=== PATIENT | female | born 1935 | race Caucasian/White ===

== ENCOUNTER 2016-04-23 05:47 | Inpatient (IN) | payer MEDICARE ==
[~2016-04-23 05:47] MED LIST: Buffered Lidocaine 1% SYR 3ML* 3 ML/SYR SYRINGE INTRADERM ONE; NS 0.9% 1000 ML* 1,000 ML IV SCH
[2016-04-23] MEDS ORDERED: oxyCODONE/Acetamin 5/325 MG* TAB PO PRN ×3 (05:53→11:10)
[2016-04-23] MEDS ORDERED: Morphine INJ* 2 MG/ML 1 ML CARPUJECT IV PRN (05:53)
[2016-04-23] MEDS ORDERED: PROCHLORPERAZINE INJ 5 MG/ML 2 ML VIAL IV PRN (05:53)
[2016-04-23] MEDS ORDERED: Famotidine IV* 10 MG/ML 2 ML (20 mg) IV ONE (06:00)
[2016-04-23] MEDS ORDERED: Buffered Lidocaine 1% SYR 3ML* 3 ML/SYR SYRINGE INTRADERM ONE (06:00)
[2016-04-23] MEDS ORDERED: Buffered Lidocaine 1% SYR 3ML* 3 ML/SYR SYRINGE ONE (06:18)
[2016-04-23] MEDS ORDERED: ceFAZolin 2 GM PREMIX (*) 2 GM/50 ML BAG IVPB ONE (06:18)
[2016-04-23] MEDS ORDERED: Famotidine IV* 10 MG/ML 2 ML (20 mg) ONE (06:18)
[2016-04-23] MEDS ORDERED: Atracurium* 10 MG/ML 10 ML VIAL ONE (07:12)
[2016-04-23] MEDS ORDERED: Midazolam* 1 MG/ML 2 ML VIAL (2 MG) ONE (07:12)
[2016-04-23] MEDS ORDERED: KETAMINE HCL* 50 MG/ML 10 ML VIAL ONE (07:12)
[2016-04-23] MEDS ORDERED: fentaNYL* 50 MCG/ML 2 ML VIAL (100 MCG VIAL) ONE ×2 (07:12→09:10)
[2016-04-23] MEDS ORDERED: Bacitracin IV* 50,000 UNITS INJ ONE (07:13)
[2016-04-23] MEDS ORDERED: Thrombin 5,000 UNITS* 1 APPLIC KIT - topical use - TOPICAL ONE (07:13)
[2016-04-23] MEDS ORDERED: Lidocain 1% EPI 1:100,000 * 30 ML MDV ONE (07:13)
[2016-04-23] MEDS ORDERED: Neostigmine Methylsulfate* 2 MG/2 ML SYRINGE ONE (08:08)
[2016-04-23] MEDS ORDERED: Ondansetron INJ* 2 MG/ML VIAL ONE (08:08)
[2016-04-23] MEDS ORDERED: Glycopyrrolate IV* 0.2 MG/ML 1 ML VIAL ONE (08:08)
[2016-04-23] MEDS ORDERED: Dexamethasone IV* 4 MG/ML 1 ML (4 MG) ONE (08:08)
[2016-04-23] MEDS ORDERED: Phenylephrine IV* 40 MCG/ML 10 ML SYRINGE ONE (08:08)
[2016-04-23] MEDS ORDERED: Propofol* 10 MG/ML 20 ML BTL IV PUSH ONE (08:08)
[2016-04-23] MEDS ORDERED: Lidocaine 2% PF* 10 ML AMP ONE (08:08)
[2016-04-23] MEDS ORDERED: Morphine INJ* 10 MG/ML 1 ML CARPUJECT ONE (08:17)
[2016-04-23] MEDS ORDERED: Magnesium Hydroxide LIQ* 30 ML UDC PO PRN (08:53)
[2016-04-23] MEDS ORDERED: Acetaminophen TAB* 325 MG PO PRN (08:53)
[2016-04-23] MEDS: fentaNYL* 50 MCG/ML 2 ML VIAL (100 MCG VIAL) IV PRN ×5 (09:13→09:29)
[2016-04-23] MEDS: Ondansetron INJ* 2 MG/ML VIAL IV PRN (11:03)
[2016-04-23] MEDS: Losartan TAB* 25 MG PO SCH ×2 (11:12→19:26)
[2016-04-23] MEDS: Levothyroxine TAB* 100 MCG TAB PO SCH (11:12)
[2016-04-23] MEDS: Omeprazole CAP* 20 MG PO SCH (11:13)
[2016-04-23] MEDS: Spironolactone TAB* 25 MG PO SCH ×2 (11:13→19:26)
--- NOTE | 2016-04-23 11:18 | RAD ---
Indication: Decompressive L4-5 laminectomy. Comparison: March 17, 2016 MRI Technique: Crosstable prone lateral lumbar sacral spine 0805 hours Report: Tip of the metallic instrument is at the superficial posterior margin of the level of the L5-S1 facet joints. Advanced L4-5 and L5-S1 disc space narrowing as well as facet joint osteoarthritis. IMPRESSION: Procedural control film.
[2016-04-23] MEDS: clonazePAM TAB(*) 0.5 MG PO PRN (16:16)
[2016-04-23] MEDS: Diltiazem CD CAP* 180 MG PO SCH (17:33)
[2016-04-23] MEDS: Aspirin EC Low Dose* 81 MG TAB.EC PO SCH (17:34)
[2016-04-23] MEDS: Zolpidem TAB* 10 MG PO PRN (21:23)
--- NOTE | 2016-04-24 07:55 | PN ---
Progress Note - Progress Note SOAP: Subjective: []POD # 1 Minimal back pain Has had difficulty voiding Can placed last night Up ambulating this AM Objective: [] Dressing dry Neuro intact Assessment: []Stable post op Plan: []Need to monitor drain output Will try to get Can out
[2016-04-24] MEDS: Omeprazole CAP* 20 MG PO SCH (08:24)
[2016-04-24] MEDS: Levothyroxine TAB* 100 MCG TAB PO SCH (08:24)
[2016-04-24] MEDS: Ondansetron INJ* 2 MG/ML VIAL IV PRN (09:05)
[2016-04-24] MEDS: Losartan TAB* 25 MG PO SCH ×2 (09:54→20:12)
[2016-04-24] MEDS: Spironolactone TAB* 25 MG PO SCH ×2 (09:54→20:13)
[2016-04-24] MEDS: clonazePAM TAB(*) 0.5 MG PO PRN ×2 (12:18→20:13)
[2016-04-24] MEDS: Aspirin EC Low Dose* 81 MG TAB.EC PO SCH (18:17)
[2016-04-24] MEDS: Diltiazem CD CAP* 180 MG PO SCH (18:17)
[2016-04-24] MEDS: Zolpidem TAB* 10 MG PO PRN ×2 (20:13→22:22)
[2016-04-25 07:55] VITALS: BP 122/43
[2016-04-25] MEDS: Levothyroxine TAB* 100 MCG TAB PO SCH (07:58)
[2016-04-25] MEDS: Omeprazole CAP* 20 MG PO SCH (07:58)
--- NOTE | 2016-04-25 08:45 | PN ---
Progress Note - Progress Note SOAP: Subjective: [This is an 81 year old female s/p decompressive lumbar laminectomy L4-5, POD # 2. She is feeling well this morning and offers no complaints. Pre-operative pain in the lower extremities with ambulation is resolved. She denies numbness, tingling, weakness and pain in the bilateral lower extremities. She is eating, drinking and voiding without difficulty. She is ambulating independently. Pain is well controlled with occasional Tylenol. ] Objective: [ Vital Signs: Temp Pulse Resp BP Pulse Ox 98.1 F 60 17 122/43 96 04/25/16 07:31 04/25/16 07:31 04/25/16 07:31 04/25/16 07:31 04/25/16 07:31 General: Alert and oriented. No distress. Neuro: Motor and sensory intact. Incision: Intact with percy. No swelling, ecchymosis or signs of infection. Nontender. LLUVIA drain removed today without complication. Extremities: Full ROM .] Assessment: [This patient is following a satisfactory post-operative course at this time. ] Plan: [1. Discharge home today. 2. Discharge instructions including wound care and activity level were discussed with the patient. ]
[2016-04-25] MEDS: Spironolactone TAB* 25 MG PO SCH (09:16)
[2016-04-25] MEDS: Losartan TAB* 25 MG PO SCH (09:16)
--- NOTE | 2016-04-27 08:57 | OP ---
DATE OF OPERATION: 04/23/16 - ROOM #335 DATE OF : 33 SURGEON: Soto Martell MD [employer]ING ENGINEER: LADARIUS Philippe ANESTHESIOLOGIST: Dayne Westbrook MD ANESTHESIA: General. PRE-OP DIAGNOSIS: Lumbar spinal stenosis, L4-5. POST-OP DIAGNOSIS: Lumbar spinal stenosis, L4-5. OPERATIVE PROCEDURE: Decompressive lumbar laminectomy, L4-5. DESCRIPTION OF PROCEDURE: After satisfactory general anesthesia was obtained, the patient was placed on the operating table in the prone position with the chest supported on the Ron frame and the back slightly flexed. The lumbar region was then clipped, prepped and draped in a sterile manner for lumbar laminectomy and a skin incision outlined from L4 to L5. This incision was infiltrated with 1% Xylocaine with epinephrine, after which it was turned down sharply to the level of the lumbar fascia. The fascia was divided along the spinous processes of L4 and L5 and the paraspinal musculature stripped away from these posterior elements using the periosteal elevator and monopolar cautery. An intraoperative x-ray was obtained verifying proper interspace localization, after which the spinous processes of L4 and L5 were removed with the combination of the [place] member and [place] rongeurs. A decompression was then performed by removing the inferior aspect of the L4 lamina and medial aspect of the facet complex with the combination of the Mida- Nikolai drill and Kerrison rongeurs. This was carried superiorly until the attachment of the ligamentum flavum was taken down. Pathology at this level was a combination of bony hypertrophy as well as ligamentum flavum thickening. At the level of the L5 pedicle, there was noted to be marked compromise bilaterally on both L5 nerve roots. This was decompressed with Kerrison's. At the conclusion of the decompression, a nerve hook would go out readily with both L5 nerve roots. It was felt that a satisfactory decompression had been achieved. After assuring adequate hemostasis, the wound was thoroughly irrigated after which a drain was placed in the epidural space and tunneled out toward the left side. The fascia was then reapproximated with 0 Vicryl suture, the subcutaneous tissue was closed with 3- 0 Vicryl suture, and the skin closed with skin clips. The estimated blood loss was less than 50 cc and the final sponge, padding, and needle counts were correct. The patient was taken to the recovery room, extubated, and in stable condition. [id number]/[facility] #: [id number] MTDLaury
--- NOTE | 2016-04-30 09:58 | DS ---
DATE OF ADMISSION: 04/23/16 DATE OF DISCHARGE: 04/25/16 ATTENDING SURGEON: Soto Martell MD (dictated by LADARIUS Morales) DISCHARGE DIAGNOSES: 1. Lumbar spinal stenosis. 2. Hypertension. 3. Hyperlipidemia. 4. Hypothyroidism. 5. Gastroesophageal reflux disease. 6. Polymyalgia rheumatica. SPECIAL PROCEDURE: 1. Decompressive lumbar laminectomy at L4-5. HOSPITAL COURSE: This 81-year-old female was seen in the office with signs and symptoms of significant lumbar radiculopathy. She failed to improve with several months of conservative treatment, and was admitted at this time for elective surgical intervention. On the date of admission, she was taken to surgery where, under general anesthesia, a decompressive lumbar laminectomy at L4-5 operation was carried out. Post-operatively, she was feeling well. Pain was well controlled with oral pain medication and Tylenol. She was ambulating independently. She was eating, drinking and voiding without difficulty. On the second post-operative day she was discharged home to the care of her family. Discharge instructions including wound care and activity level were provided and discussed with the patient. She will be seen in the office in approximately 7-10 days for follow up and staple removal. DISCHARGE MEDICATIONS: None. LADARIUS MORALES [id number]/[facility] #: [id number] MTDD
== END 2016-04-25 09:40 | disposition home or self-care (01) | DRG 517 ==
LOC: OR 05:47 → SSU 07:55 → OBSVTOIN 04-24 07:55
PROVIDERS: ADMIT Neurological Surgery; ATTEND Neurological Surgery
PROC: 01NB0ZZ Release Lumbar Nerve, Open Approach (ICD-10-PCS; principal; 2016-04-25)
DX: M48.06 Spinal stenosis, lumbar region (principal); J44.9 Chronic obstructive pulmonary disease, unspecified; N18.3 Chronic kidney disease, stage 3 (moderate); K21.9 Gastro-esophageal reflux disease without esophagitis; M35.3 Polymyalgia rheumatica; I12.9 Hypertensive chronic kidney disease with stage 1 through stage 4 chronic kidney disease, or unspecified chronic kidney disease; Z87.891 Personal history of nicotine dependence; D53.9 Nutritional anemia, unspecified; Z88.8 Allergy status to other drugs, medicaments and biological substances; Z88.1 Allergy status to other antibiotic agents; Z88.5 Allergy status to narcotic agent; Z85.820 Personal history of malignant melanoma of skin; Z85.038 Personal history of other malignant neoplasm of large intestine; E78.5 Hyperlipidemia, unspecified; M81.0 Age-related osteoporosis without current pathological fracture; F41.9 Anxiety disorder, unspecified; J31.0 Chronic rhinitis; R73.01 Impaired fasting glucose; M51.36 Other intervertebral disc degeneration, lumbar region
CPT/HCPCS: 36415; 72100; 84132; A9270-GY; J0690; J1100; J2001; J2250; J2270; J2405; J2704; J3010

== ENCOUNTER 2017-09-14 12:21 | Inpatient (IN) | payer MEDICARE ==
--- NOTE | 2017-09-01 21:19 | HP ---
HISTORY AND PHYSICAL: DATE OF ADMISSION/SURGERY: 09/14/17 SURGEON: Cyndi Garza MD * (DICTATED BY LADARIUS COOL) PROCEDURE: Right total knee arthroplasty. CHIEF COMPLAINT: Right knee pain. HISTORY OF PRESENT ILLNESS: Ms. Botello is an 82-year-old female with complaints of right knee pain. She has failed conservative management and elected to proceed with a right total knee arthroplasty which is scheduled for 09/14/[address] Garza. PAST MEDICAL HISTORY: Melanoma, hypertension, high cholesterol, chronic kidney disease, anemia, hypothyroidism, and GERD. PAST SURGICAL HISTORY: Cardiac cath, cholecystectomy, thyroidectomy, excision of a melanoma, right carpal tunnel release, cataract removal, laminectomy, and right knee arthroscopy. CURRENT MEDICATIONS: 1. Levothyroxine 88 mcg daily. 2. Losartan/potassium 50 mg twice daily. 3. Diltiazem 180 mg daily. 4. Tums as needed. 5. Clonazepam 0.5 mg twice a day as needed. 6. Zolpidem tartrate 10 mg at bedtime. 7. Cetirizine as needed. 8. Omeprazole 20 mg daily. 9. Vitamin D. 10. Aspirin 81 mg daily. 11. Tylenol as needed. 12. Betamethasone. ALLERGIES: LISINOPRIL, HYDROCODONE, NIASPAN, BETA BLOCKERS, PRAVASTATIN, AZITHROMYCIN. HYDROCODONE causes dizziness and she does not like the way it makes her feel. FAMILY HISTORY: Coronary artery disease, hypertension, stroke, and chronic kidney disease. SOCIAL HISTORY: She is an 82-year-old female. She lives with her . She does not smoke or use drugs. Uses occasional alcohol. REVIEW OF SYSTEMS: A complete 14-point review of systems was reviewed with the patient, it was positive for chronic kidney disease, anemia, and GERD. She denies a history of DVT, PE, hepatitis, HIV, or anesthesia problems. PHYSICAL EXAMINATION GENERAL: She is well developed, well nourished in no acute distress. VITAL SIGNS: She stands 5 feet 4 inches tall, weighs 170 pounds. Her blood pressure is 146/68 and heart rate is 72. HEENT: Normocephalic and atraumatic. NECK: Supple. No palpable lymph nodes. PULMONARY: Lungs are clear to auscultation bilaterally. CARDIO: Regular rate and rhythm. Strong S1 and S2. ABDOMEN: Soft, nontender, and nondistended. NEUROLOGIC: She is alert and oriented x3. Cranial nerves II through XII are intact. MUSCULOSKELETAL: Right lower extremity, the skin is intact. There are no open wounds or abrasions. There is a moderate joint effusion. She has some tenderness over the medial and lateral joint line. There is a 15 degrees valgus deformity of the knee. Range of motion is 10 to 125 degrees of flexion with patellofemoral crepitus. 2+ dorsalis pedis pulses. Intact sensation. Her lower extremity muscle group strengths are intact at 5/5. ASSESSMENT AND PLAN: Ms. 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 She has failed conservative management and elected to proceed with a right total knee arthroplasty which is scheduled for 09/14/[address] Garza discussed the risks and benefits of the surgery at today's visit. All of her questions were answered. She will follow up with Dr. Garza 2 weeks after the surgery. LADARIUS COOL [id number]/[facility] #: [id number] MTDLaury
[~2017-09-14 12:21] MED LIST changes: +Buffered Lidocaine 0.9% SYRIN* 5 ML/SYR SYRINGE INTRADERM ONE; -Buffered Lidocaine 1% SYR 3ML* 3 ML/SYR SYRINGE INTRADERM ONE; +Famotidine IV* 10 MG/ML 2 ML (20 mg) IV ONE; +Gabapentin CAP(*) 300 MG PO ONE; -NS 0.9% 1000 ML* 1,000 ML IV SCH
--- OUTSIDE RECORDS SUMMARY | 2017-09-14 12:33 | XMS REPORT ---
:1935 External Reference #:[id number] Author Organization [facility] Address [address] [address] Phone [phone] Care Team Providers Name Role Phone Rubin Sanchez MD Primary Care Physician Unavailable Payers Type Date Identification Numbers Payment Provider Subscriber Medicare Primary Effective: Policy Number: Medicare Latonia Botello 1999 [id number] PayID: [id number] [address] [place] [address] Medigap Part B Effective: Policy Number: [facility] Latonia Calderón 2012 [id number] [facility]: [id number] [address] [place] [address] Medigap Part B Effective: 2005 Policy Number: [facility] REBECCA Botello [id number] Expires: 2013 Group Number: [id number] [address] [address] PayID: [id number] DeepikaFLORINA terry [id number] Problems Date Description Provider Status Onset: 06/14/2013 Polymyalgia rheumatica Tiago Rehman M.D. Active Onset: 06/14/2013 Immunological Findings Nonspec Other Tiago Rehman M.D. Active & Unspec Onset: 06/14/2013 Spinal stenosis of lumbar region Tiago Rehman M.D. Active Onset: 08/24/2013 Blood chemistry abnormal Tiago Rehman M.D. Active Onset: 08/24/2013 Common variable agammaglobulinemia Tiago Rehman M.D. 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 Active myelopathy Onset: 02/14/2014 Acute frontal sinusitis Tiago Rehman M.D. Active Onset: 05/04/2016 Convalescence after surgery Soto Martell M.D. Active Onset: 08/06/2017 Localized, primary osteoarthritis Cyndi Garza M.D. 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 ETOH Use Drinks Alcoholic Beverages Rarely Alcohol Denies alcohol use Smoking Patient is a former smoker quit at age 63 Recreational Drug Use Denies Drug Use Daily Caffeine Does not consume caffeine Exercise Type/Frequency Exercises sporadically Allergies, Adverse Reactions, Alerts Date Description Reaction Status Severity Comments 03/18/2005 lisinopril active 03/18/2005 Hydrocodone active 06/29/2005 Niaspan active 01/19/2006 Betablockers active extreme fatigue 08/06/2017 Pravastatin active 08/06/2017 Azithromycin active Medications Medication Date Status Form Strength Qnty SIG Indications Ordering Provider Levothroid 01/19 Active Tablets 100mcg 1 po qd Qutayb Brenda Howe M.D. Losartan Potassium Active Tablets 50mg 90tab 1 po bid / s Diltiazem CD Active Caps ER 180mg 90cap 1 po qd 24HR s Tums Active Chewtabs 500mg as needed / Clonazepam Active Tablets 0.5mg 1 by Unknown /0000 mouth twice a day as needed Zolpidem Tartrate Active Tablets 10mg 1 tab by Unknown /0000 mouth every night at bedtime as needed mdd 1 Omeprazole Active Capsules 20mg 1 by Unknown /0000 DR mouth every day Vitamin D Active Unknown /0000 Aspirin 81 Low Dose Active 1 by Unknown /0000 mouth every day Prochlorperazine Active 50mg 1/2 Unknown / tablet Tylenol Active Unknown Betamethasone Active Ointment 0.1% Unknown Val Celecoxib 05/25 Hx Capsules 200mg 30cap 1 by Z48.89 s mouth [place], - every day M.D. 08/05 Vitamin D 06/14 Hx Capsules 400Unit 1 po qd Endo, - M.D. 08/05 Cozaar 01/21 Hx Tablets 25mg 1/2 po Qutaybeh bid S. - Maghaydah 06/14 , M.D. Boniva 01/19 Hx Tablets 150mg 1 tablet Qutayb q month S. - Maghaydah 06/14 , M.D. Cozaar 01/19 Hx Tablets 25mg 30tab 1 po qd Qutayb s S. - [place] 01/21 , M.D. Aspirin 07/21 Hx Chewtabs 81mg 1 po qd Qutayb S. - Maghaydah 08/05 , M.D. Verapamil Sustained 06/26 Hx Tablets 180mg 1 po bid Qutaybeh S. - Maghaydah 06/14 , M.D. Verapamil Sustained 04/28 Hx Capsules 180mg 90cap 1 po qd Qutaybeh s S. - [place] 06/26 , M.D. Zetia 04/28 Hx Tablets 10mg 90tab 1 PO qd Qutaybeh s S. - [place] 06/14 , M.D. Toprol XL 04/14 Hx Tablets 25mg 30tab 1 po bid Qutayb s S. - [place] 04/29 , M.D. Cardizem CD 04/10 Hx Capsules 120mg 30cap 1 po tid Qutayb s S. - [place] 04/14 , M.D. Toprol XL 04/09 Hx Tablets 100mg 1 po qd Qutayb S. - [place] 04/09 , M.D. Toprol XL 04/09 Hx Tablets 50mg two tabs in am one S. - tab in pm [facility] 04/10 , M.D. /2005 Toprol XL 04/02 Hx Tablets 50mg 30tab 1 po bid [facility] /2005 Nitroglyn Sublingual 04/02 Hx Tablets 0.4mg 30tab one prn Qutayb s for chest S. - pain q 5 [facility] min max , M.D. /2013 3. Demeclocycline 03/18 Hx Tablets 150mg 1 po bid [facility] , M.D. Hydrochlorothiazide 03/18 Hx Tablets 25mg 90tab 1 PO qd [facility]b s [facility] 06[facility] , M.D. /2013 Lipitor 03/18 Hx Tablets 10mg 30tab 1 po qd Qutayb s . [facility] , M.D. /2005 Levothroid 03/17 Hx Tablets 125McG 90tab 1 po [facility]d [facility]. Diltiazem CD 03/17 Hx Capsules 120mg 30cap 1 po tid tayb s S[facility] - [facility] 04[facility] , M.D. Nexium 03/17 Hx Capsules 40mg 30cap 1 po qd [facility] . [facility] /2013 Fosamax 03/17 Hx Tablets 70mg one yb tablet S. - weekly [facility] , M.D. Aspirin 03/17 Hx Gelcaps 325mg 90uni 1 po qd [facility] , [facility] /2005 Metamucil 03/17 Hx Granules 2.5GM/TSP [facility]. /2013 Fish Oil 03/17 Hx 1200mg one po qd Qutaybeh Brenda Howe 08/05 Yin Vitamins Multiple 03/17 Hx Caplets 30cap 1 PO qd Qutayb stephane Howe 06/14 Yin Omeprazole Hx Capsules 20mg 90cap 2 po qd Unknown /0000 DR calderón - 08/05 Prednisone 00/ Hx Tablets 1mg 70tab as Unknown /0000 s directed - 11/10 Spironolactone Hx Tablets 50mg 30tab 1 by Unknown /0000 s mouth - every day 08/05 Celebrex Hx Capsules 100mg 90cap 1 by Unknown /0000 s mouth - every day 08/31 Prednisone 00 Hx Tablets 1mg 30tab 2 by Unknown /0000 s mouth - every day 04/13 Claritin Hx Tablets 10mg prn Unknown /0000 - 08/31 Vital Signs Date Vital Result Comment 09/01/2017 Height 64 inches 5'4" Weight 170.00 lb Heart Rate 72 /min BP Systolic 146 mmHg BP Diastolic 68 mmHg BMI (Body Mass Index) 29.2 kg/m2 08/06/2017 Height 64 inches 5'4" Weight 170.00 lb Heart Rate 115 /min Respiratory Rate 16 /min Body Temperature 97.6 F Pain Level 1 BMI (Body Mass Index) 29.2 kg/m2 06/22/2016 Height 65 inches 5'5" Weight 176.00 lb Heart Rate 74 /min BP Systolic Sitting 130 mmHg BP Diastolic Sitting 78 mmHg Pain Level 3 BMI (Body Mass Index) 29.3 kg/m2 05/25/2016 Height 65 inches 5'5" Weight 176.00 lb Heart Rate 62 /min BP Systolic Sitting 140 mmHg BP Diastolic Sitting 60 mmHg Pain Level 10 BMI (Body Mass Index) 29.3 kg/m2 05/04/2016 Height 65 inches 5'5" Weight 176.00 lb BP Systolic Sitting 124 mmHg BP Diastolic Sitting 70 mmHg Body Temperature 97.0 F Pain Level 3 BMI (Body Mass Index) 29.3 kg/m2 04/13/2016 Height 65 inches 5'5" Weight 176.00 lb Heart Rate 62 /min BP Systolic 124 mmHg BP Diastolic 70 mmHg Pain Level 3 BMI (Body Mass Index) 29.3 kg/m2 02/14/2014 Height 65 inches 5'5" Weight 182.00 lb Heart Rate 70 /min BP Systolic Sitting 132 mmHg BP Diastolic Sitting 60 mmHg Pain Level 0 BMI (Body Mass Index) 30.3 kg/m2 12/12/2013 Height 65 inches 5'5" Weight 178.00 lb Heart Rate 64 /min BP Systolic Sitting 140 mmHg BP Diastolic Sitting 70 mmHg Pain Level 1 BMI (Body Mass Index) 29.6 kg/m2 11/10/2013 Height 65 inches 5'5" Weight 179.00 lb Heart Rate 64 /min BP Systolic Sitting 150 mmHg BP Diastolic Sitting 70 mmHg Pain Level 0 BMI (Body Mass Index) 29.8 kg/m2 08/24/2013 Height 65 inches 5'5" Weight 177.75 lb Heart Rate 71 /min BP Systolic Sitting 122 mmHg BP Diastolic Sitting 54 mmHg BMI (Body Mass Index) 29.6 kg/m2 06/14/2013 Height 65 inches 5'5" Weight 179.00 lb Heart Rate 78 /min BP Systolic Sitting 130 mmHg BP Diastolic Sitting 70 mmHg BMI (Body Mass Index) 29.8 kg/m2 01/19/2006 Height 65 inches 5'5" Weight 186.00 lb Heart Rate 71 /min BP Systolic Sitting 170 mmHg BP Diastolic Sitting 90 mmHg BP Systolic Standing 150 mmHg BP Diastolic Standing 80 mmHg BMI (Body Mass Index) 30.9 kg/m2 07/21/2005 Height 65 inches 5'5" Weight 181.00 lb Heart Rate 60 /min reg BP Systolic Sitting 168 mmHg BP Diastolic Sitting 70 mmHg BMI (Body Mass Index) 30.1 kg/m2 03/18/2005 Height 65 inches 5'5" Weight 185.00 lb Heart Rate 63 /min BP Systolic Sitting 164 mmHg L 170/80 R BP Diastolic Sitting 80 mmHg L 170/80 R BP Systolic Standing 160 mmHg L BP Diastolic Standing 80 mmHg L BMI (Body Mass Index) 30.8 kg/m2 Results Test Date Test Result H/L Range Note Urinalysis Profile 08/19/2017 Urine Color Yellow Urine Appearance Clear Urine Specific [place] 1.018 1.010-1.030 Urine pH 6.0 5-9 Urine Urobilinogen Negative Negative Urine Ketones Negative Negative Urine Protein Negative Negative Urine Leukocytes 3+ Negative Urine Blood Negative Negative Urine Nitrite Negative Negative Urine Bilirubin Negative Negative Urine Glucose Negative Negative Urine White Blood Cell 1+(6-10/hpf) Absent Urine Red Blood Cell Absent Absent Urine Bacteria Absent Absent Urine Squamous Epithelial Cell Present Absent CBC Auto Diff 08/19/2017 White Blood Count 13.0 10^3/uL High 3.5-10.8 Red Blood Count 3.90 10^6/uL Low 4.0-5.4 Hemoglobin 9.0 g/dL Low 12.0-16.0 Hematocrit 30 % Low 35-47 Mean Corpuscular Volume 76 fL Low 80-97 Mean Corpuscular Hemoglobin 23 pg Low 27-31 Mean Corpuscular HGB Conc 30 g/dL Low 31-36 Red Cell Distribution Width 18 % High 10.5-15 Platelet Count 352 10^3/uL 150-450 Mean Platelet Volume 7.1 um3 Low 7.4-10.4 Abs Neutrophils 8.4 10^3/uL High 1.5-7.7 Abs Lymphocytes 2.9 10^3/uL 1.0-4.8 Abs Monocytes 1.3 10^3/uL High 0-0.8 Abs Eosinophils 0.3 10^3/uL 0-0.6 Abs Basophils 0.1 10^3/uL 0-0.2 Abs Nucleated RBC 0 10^3/uL Comp Metabolic Panel 08/19/2017 Sodium 138 mmol/L Low 139-145 Potassium 4.2 mmol/L 3.5-5.0 Chloride 101 mmol/L 101-111 Co2 Carbon Dioxide 27 mmol/L 22-32 Anion Gap 10 mmol/L 2-11 Glucose 104 mg/dL High 70-100 Blood Urea Nitrogen 15 mg/dL 6-24 Creatinine 1.48 mg/dL High 0.51-0.95 BUN/Creatinine Ratio 10.1 8-20 Calcium 9.0 mg/dL 8.6-10.3 Total Protein 6.6 g/dL 6.4-8.9 Albumin 4.0 g/dL 3.2-5.2 Globulin 2.6 g/dL 2-4 Albumin/Globulin Ratio 1.5 1-3 Total Bilirubin 0.40 mg/dL 0.2-1.0 Alkaline Phosphatase 71 U/L 34-104 Alt 10 U/L 7-52 Ast 14 U/L 13-39 Egfr Non- 33.7 >60 Egfr 43.3 >60 1 Inr/Protime 08/19/2017 Inr 0.92 0.77-1.02 Manual Differential 08/19/2017 Immature Granulocytes 2 % 0-9 Neutrophil % 65 % 38-83 Band % 1 % 0-8 Lymphocytes % 18 % Low 25-47 Monocytes % 10 % High 0-7 Eosinophils % 4 % 0-6 Basophil % 0 % 0-2 Reactive Lymph % 1 % 0-6 Myelocytes % 1 % 0-1 Abs Neutrophils 8.4 10^3/uL High 1.5-7.7 Abs Lymphocytes 2.3 10^3/uL 1.0-4.8 Abs Monocytes 1.3 10^3/uL High 0-0.8 Abs Eosinophils 0.5 10^3/uL 0-0.6 Abs Basophils 0 10^3/uL 0-0.2 Microcytosis 1+ Laboratory test finding 08/19/2017 Pathologist Review (SEE NOTE) 2 Urine Culture And 08/19/2017 Urine Culture SEE RESULT BELOW 3 Sensitivities Iron & Iron Binding 08/19/2017 Iron 20 g/dL Low 50-212 Capacity Unsaturated Iron Binding 484 g/dL Total Iron Binding Capacity 504 g/dL High 250-450 Transferrin 360 mg/dL 203-362 % Iron Saturation 4 % Low 15-55 Laboratory test finding 08/19/2017 Ferritin 14.2 ng/mL 11-307 CBC No Diff 04/16/2016 White Blood Count 11.9 10^3/uL High 3.5-10.8 Red Blood Count 3.79 10^6/uL Low 4.0-5.4 Hemoglobin 10.0 g/dL Low 12.0-16.0 Hematocrit 31 % Low 35-47 Mean Corpuscular Volume 83 fL 80-97 Mean Corpuscular Hemoglobin 26 pg Low 27-31 Mean Corpuscular HGB Conc 32 g/dL 31-36 Red Cell Distribution Width 16 % High 10.5-15 Platelet Count 328 10^3/uL 150-450 Mean Platelet Volume 7 um3 Low 7.4-10.4 Basic Metabolic Panel 04/16/2016 Sodium 136 mmol/L 133-145 Potassium 5.4 mmol/L High 3.5-5.0 Chloride 103 mmol/L 101-111 Co2 Carbon Dioxide 25 mmol/L 22-32 Anion Gap 8 mmol/L 2-11 Glucose 93 mg/dL 70-100 Blood Urea Nitrogen 33 mg/dL High 6-24 Creatinine 1.80 mg/dL High 0.51-0.95 BUN/Creatinine Ratio 18.3 8-20 Calcium 9.6 mg/dL 8.6-10.3 Egfr Non- 26.9 >60 Egfr 34.6 >60 4 Cardiolipin Igg/Igm 02/06/2014 Phospholipid Ab IgM, S 30.0 MPL High 5 Phospholipid Ab IgG < 4.0 GPL 6 Laboratory test finding 02/06/2014 Phospholipid Ab IgA < 4.0 APL 7 Creatinine Clearance 02/06/2014 Urine Random Creatinine 41.61 mg/dL Creatinine 1.75 mg/dL High 0.51-0.95 Creatinine Clearance 46 mL/min Low 88-128 Urine Collection Time 24 Urine Total Volume 2800 mL CBC Auto Diff 02/06/2014 White Blood Count 12.2 10^3/uL High 4.8-10.8 Red Blood Count 3.53 10^6/uL Low 4.0-5.4 Hemoglobin 9.6 g/dL Low 12.0-16.0 Hematocrit 30 % Low 35-47 Mean Corpuscular Volume 84 fL 80-97 Mean Corpuscular Hemoglobin 27 pg 27-31 Mean Corpuscular HGB Conc 32 g/dL 31-36 Red Cell Distribution Width 14 % 10.5-15 Platelet Count 350 10^3/uL 150-450 Mean Platelet Volume 7 um3 Low 7.4-10.4 Abs Neutrophils 6.8 10^3/uL 1.5-7.7 Abs Lymphocytes 3.5 10^3/uL 1.0-4.8 Abs Monocytes 1.1 10^3/uL High 0-0.8 Abs Eosinophils 0.7 10^3/uL High 0-0.6 Abs Basophils 0.1 10^3/uL 0-0.2 Abs Nucleated RBC 0.01 10^3/uL Granulocyte % 55.7 % 38-83 Lymphocyte % 28.4 % 25-47 Monocyte % 9.0 % 1-9 Eosinophil % 6.0 % 0-6 Basophil % 0.9 % 0-2 Nucleated Red Blood Cells % 0.1 Protein Electrophoresis 02/06/2014 Total Protein(Pep) 6.6 g/dL 6.3 - 7.9 Albumin 3.3 g/dL 3.4-4.7 Alpha-1 Globulin 0.3 g/dL 0.1-0.3 Alpha-2 Globulin 1.2 g/dL 0.6-1.0 Beta Globulin 1.1 g/dL 0.7-1.2 Gamma Globulin 0.8 g/dL 0.6-1.6 Albumin/Globulin Ratio 1.00 Impression See Comment 8 Laboratory test finding 02/06/2014 C Reactive Protein 4.80 mg/L < 5.00 9 Erythrocyte Sed Rate 56 mm/Hr High 0-40 Comp Metabolic Panel 02/06/2014 Sodium 134 mmol/L 133-145 Potassium 4.8 mmol/L 3.5-5.0 10 Chloride 100 mmol/L Low 101-111 Co2 Carbon Dioxide 28 mmol/L 22-32 Anion Gap 6 mmol/L 2-11 Glucose 98 mg/dL 70-100 Blood Urea Nitrogen 28 mg/dL High 6-24 Creatinine 1.74 mg/dL High 0.51-0.95 BUN/Creatinine Ratio 16.1 8-20 Calcium 9.3 mg/dL 8.6-10.3 Total Protein 6.2 g/dL Low 6.4-8.9 Albumin 3.8 g/dL 3.2-5.2 Globulin 2.4 g/dL 2-4 Albumin/Globulin Ratio 1.6 1-3 Total Bilirubin 0.40 mg/dL 0.2-1.0 Alkaline Phosphatase 66 U/L 34-104 Alt 10 U/L 7-52 Ast 12 U/L Low 13-39 Egfr Non- 28.2 >60 Egfr 36.3 >60 11 Laboratory test finding 12/05/2013 Erythrocyte Sed Rate 63 mm/Hr High 0- 40 Vitamin D 1,25-Dihydroxy 26 pg/mL 18-78 12 Pthi 12/05/2013 PTH Intact 2.2 pmol/L 1.3-9.3 Calcium (PTH Intact) 9.5 mg/dL 8.6-10.3 Comp Metabolic Panel 12/05/2013 Sodium 133 mmol/L 133-145 Potassium 4.4 mmol/L 3.7-5.6 Chloride 100 mmol/L Low 101-111 Co2 Carbon Dioxide 25 mmol/L 22-32 Anion Gap 8 mmol/L 2-11 Glucose 90 mg/dL 70-100 Blood Urea Nitrogen 31 mg/dL High 6-24 Creatinine 1.64 mg/dL High 0.51-0.95 BUN/Creatinine Ratio 18.9 8-20 Calcium 9.5 mg/dL 8.6-10.3 Total Protein 6.0 g/dL Low 6.4-8.9 Albumin 3.7 g/dL 3.2-5.2 Globulin 2.3 g/dL 2-4 Albumin/Globulin Ratio 1.6 1-3 Total Bilirubin 0.50 mg/dL 0.2-1.0 Alkaline Phosphatase 70 U/L 34-104 Alt 10 U/L 7-52 Ast 14 U/L 13-39 Egfr Non- 30.2 >60 Egfr 38.9 >60 13 Laboratory test finding 12/05/2013 Uric Acid 7.1 mg/dL High 2.3-6.6 Phosphorus 4.3 mg/dL 2.5-5.0 Magnesium 1.6 mg/dL Low 1.9-2.7 Free T4 1.34 ng/mL High 0.61-1.12 TSH (Thyroid Stimulating Horm) 0.75 IU/mL 0.34-5.60 C Reactive Protein 8.17 mg/L High < 5.00 14 Total Protein 24HR Urine 12/05/2013 Urine Random Total Protein < 6 mg/dL Urine Total Protein/24HR (SEE NOTE) mg/24Hr 0-165 15 Urine Collection Time 24 Urine Total Volume 2450 mL Creatinine Clearance 12/05/2013 Urine Random Creatinine 79.97 mg/dL Creatinine 1.64 mg/dL High 0.51-0.95 Creatinine Clearance 83 mL/min Low 88-128 Urine Collection Time 24 Urine Total Volume 2450 mL CBC With Manual Diff 12/05/2013 White Blood Count 10.1 10^3/uL 4.8-10.8 Red Blood Count 3.44 10^6/uL Low 4.0-5.4 Hemoglobin 9.6 g/dL Low 12.0-16.0 Hematocrit 29 % Low 35-47 Mean Corpuscular Volume 84 fL 80-97 Mean Corpuscular Hemoglobin 28 pg 27-31 Mean Corpuscular HGB Conc 33 g/dL 31-36 Red Cell Distribution Width 15 % 10.5-15 Platelet Count 325 10^3/uL 150-450 Mean Platelet Volume 7 um3 Low 7.4-10.4 Abs Neutrophils 4.8 10^3/uL 1.5-7.7 Abs Lymphocytes 3.1 10^3/uL 1.0-4.8 Abs Monocytes 0.9 10^3/uL High 0-0.8 Abs Eosinophils 1.2 10^3/uL High 0-0.6 Abs Basophils 0.1 10^3/uL 0-0.2 Abs Nucleated RBC 0.01 10^3/uL Neutrophil % 50 % 38-83 Lymphocytes % 34 % 25-47 Monocytes % 4 % 0-13 Eosinophils % 11 % High 0-6 Reactive Lymph % 1 % 0-6 Hypochromasia 1+ Basic Metabolic Panel 10/20/2013 Sodium 134 mmol/L 133-145 Potassium 4.6 mmol/L 3.7-5.6 Chloride 101 mmol/L 101-111 Co2 Carbon Dioxide 26 mmol/L 22-32 Anion Gap 7 mmol/L 2-11 Glucose 104 mg/dL High 70-100 Blood Urea Nitrogen 21 mg/dL 6-24 Creatinine 1.55 mg/dL High 0.51-0.95 BUN/Creatinine Ratio 13.5 8-20 Calcium 9.4 mg/dL 8.6-10.3 Egfr Non- 32.3 >60 Egfr 41.5 >60 16 Laboratory test finding 10/20/2013 C Reactive Protein 8.82 mg/L High < 5.00 17 CBC Auto Diff 10/20/2013 White Blood Count 8.9 10^3/uL 4.8-10.8 Red Blood Count 3.74 10^6/uL Low 4.0-5.4 Hemoglobin 10.6 g/dL Low 12.0-16.0 Hematocrit 32 % Low 35-47 Mean Corpuscular Volume 85 fL 80-97 Mean Corpuscular Hemoglobin 28 pg 27-31 Mean Corpuscular HGB Conc 33 g/dL 31-36 Red Cell Distribution Width 14 % 10.5-15 Platelet Count 336 10^3/uL 150-450 Mean Platelet Volume 7 um3 Low 7.4-10.4 Abs Neutrophils 4.4 10^3/uL 1.5-7.7 Abs Lymphocytes 3.0 10^3/uL 1.0-4.8 Abs Monocytes 0.9 10^3/uL High 0-0.8 Abs Eosinophils 0.5 10^3/uL 0-0.6 Abs Basophils 0.1 10^3/uL 0-0.2 Abs Nucleated RBC 0 10^3/uL Granulocyte % 49.5 % 38-83 Lymphocyte % 34.0 % 25-47 Monocyte % 9.8 % High 1-9 Eosinophil % 5.8 % 0-6 Basophil % 0.9 % 0-2 Nucleated Red Blood Cells % 0 Laboratory test finding 10/20/2013 Erythrocyte Sed Rate 56 mm/Hr High 0- 40 Basic Metabolic Panel 09/22/2013 Sodium 135 mmol/L 133-145 Potassium 4.7 mmol/L 3.7-5.6 Chloride 101 mmol/L 101-111 Co2 Carbon Dioxide 27 mmol/L 22-32 Anion Gap 7 mmol/L 2-11 Glucose 93 mg/dL 70-100 Blood Urea Nitrogen 23 mg/dL 6-24 Creatinine 1.41 mg/dL High 0.51-0.95 BUN/Creatinine Ratio 16.3 8-20 Calcium 9.5 mg/dL 8.6-10.3 Egfr Non- 36.0 >60 Egfr 46.3 >60 18 Laboratory test finding 09/22/2013 C Reactive Protein 5.24 mg/L High < 5.00 19 CBC Auto Diff 09/22/2013 White Blood Count 9.9 10^3/uL 4.8-10.8 Red Blood Count 3.69 10^6/uL Low 4.0-5.4 Hemoglobin 10.6 g/dL Low 12.0-16.0 Hematocrit 32 % Low 35-47 Mean Corpuscular Volume 85 fL 80-97 Mean Corpuscular Hemoglobin 29 pg 27-31 Mean Corpuscular HGB Conc 34 g/dL 31-36 Red Cell Distribution Width 14 % 10.5-15 Platelet Count 326 10^3/uL 150-450 Mean Platelet Volume 7 um3 Low 7.4-10.4 Abs Neutrophils 5.0 10^3/uL 1.5-7.7 Abs Lymphocytes 3.5 10^3/uL 1.0-4.8 Abs Monocytes 0.9 10^3/uL High 0-0.8 Abs Eosinophils 0.4 10^3/uL 0-0.6 Abs Basophils 0.1 10^3/uL 0-0.2 Abs Nucleated RBC 0.01 10^3/uL Granulocyte % 50.4 % 38-83 Lymphocyte % 35.5 % 25-47 Monocyte % 9.2 % High 1-9 Eosinophil % 3.6 % 0-6 Basophil % 1.3 % 0-2 Nucleated Red Blood Cells % 0.1 Laboratory test finding 09/22/2013 Erythrocyte Sed Rate 66 mm/Hr High 0- 40 Basic Metabolic Panel 08/25/2013 Sodium 139 mmol/L 133-145 Potassium 5.2 mmol/L 3.7-5.6 Chloride 105 mmol/L 101-111 Co2 Carbon Dioxide 29 mmol/L 22-32 Anion Gap 5 mmol/L 2-11 Glucose 80 mg/dL 70-100 Blood Urea Nitrogen 25 mg/dL High 6-24 Creatinine 1.59 mg/dL High 0.51-0.95 BUN/Creatinine Ratio 15.7 8-20 Calcium 9.4 mg/dL 8.6-10.3 Egfr Non- 31.3 >60 Egfr 40.3 >60 20 Laboratory test finding 08/25/2013 C Reactive Protein 3.57 mg/L < 5.00 21 CBC Auto Diff 08/25/2013 White Blood Count 10.4 10^3/uL 4.8-10.8 Red Blood Count 3.53 10^6/uL Low 4.0-5.4 Hemoglobin 10.1 g/dL Low 12.0-16.0 Hematocrit 31 % Low 35-47 Mean Corpuscular Volume 87 fL 80-97 Mean Corpuscular Hemoglobin 29 pg 27-31 Mean Corpuscular HGB Conc 33 g/dL 31-36 Red Cell Distribution Width 15 % 10.5-15 Platelet Count 333 10^3/uL 150-450 Mean Platelet Volume 7 um3 Low 7.4-10.4 Abs Neutrophils 5.3 10^3/uL 1.5-7.7 Abs Lymphocytes 3.6 10^3/uL 1.0-4.8 Abs Monocytes 1.1 10^3/uL High 0-0.8 Abs Eosinophils 0.3 10^3/uL 0-0.6 Abs Basophils 0.1 10^3/uL 0-0.2 Abs Nucleated RBC 0 10^3/uL Granulocyte % 51.0 % 38-83 Lymphocyte % 34.8 % 25-47 Monocyte % 11.0 % High 1-9 Eosinophil % 2.4 % 0-6 Basophil % 0.8 % 0-2 Nucleated Red Blood Cells % 0 Laboratory test finding 08/25/2013 Erythrocyte Sed Rate 50 mm/Hr High 0- 40 Basic Metabolic Panel 08/04/2013 Sodium 137 mmol/L 133-145 Potassium 4.8 mmol/L 3.7-5.6 Chloride 103 mmol/L 101-111 Co2 Carbon Dioxide 28 mmol/L 22-32 Anion Gap 6 mmol/L 2-11 Glucose 85 mg/dL 70-100 Blood Urea Nitrogen 23 mg/dL 6-24 Creatinine 1.45 mg/dL High 0.51-0.95 BUN/Creatinine Ratio 15.9 8-20 Calcium 9.4 mg/dL 8.6-10.3 Egfr Non- 34.8 >60 Egfr 44.8 >60 22 Laboratory test finding 08/04/2013 C Reactive Protein 4.50 mg/L < 5.00 23 CBC Auto Diff 08/04/2013 White Blood Count 11.9 10^3/uL High 4.8-10.8 Red Blood Count 3.76 10^6/uL Low 4.0-5.4 Hemoglobin 10.4 g/dL Low 12.0-16.0 Hematocrit 33 % Low 35-47 Mean Corpuscular Volume 87 fL 80-97 Mean Corpuscular Hemoglobin 28 pg 27-31 Mean Corpuscular HGB Conc 32 g/dL 31-36 Red Cell Distribution Width 14 % 10.5-15 Platelet Count 357 10^3/uL 150-450 Mean Platelet Volume 7 um3 Low 7.4-10.4 Abs Neutrophils 6.2 10^3/uL 1.5-7.7 Abs Lymphocytes 4.3 10^3/uL 1.0-4.8 Abs Monocytes 1.2 10^3/uL High 0-0.8 Abs Eosinophils 0.2 10^3/uL 0-0.6 Abs Basophils 0.1 10^3/uL 0-0.2 Abs Nucleated RBC 0 10^3/uL Granulocyte % 52.1 % 38-83 Lymphocyte % 35.7 % 25-47 Monocyte % 9.7 % High 1-9 Eosinophil % 1.5 % 0-6 Basophil % 1.0 % 0-2 Nucleated Red Blood Cells % 0 Laboratory test finding 08/04/2013 Erythrocyte Sed Rate 61 mm/Hr High 0- 40 Basic Metabolic Panel 07/14/2013 Sodium 137 mmol/L 133-145 Potassium 4.4 mmol/L 3.7-5.6 Chloride 103 mmol/L 101-111 Co2 Carbon Dioxide 25 mmol/L 22-32 Anion Gap 9 mmol/L 2-11 Glucose 138 mg/dL High 70-100 Blood Urea Nitrogen 31 mg/dL High 6-24 Creatinine 1.47 mg/dL High 0.51-0.95 BUN/Creatinine Ratio 21.1 High 8-20 Calcium 9.2 mg/dL 8.6-10.3 Egfr Non- 34.3 >60 Egfr 44.1 >60 24 Laboratory test 07/14/2013 C Reactive Protein 7.21 mg/L High < 5.00 25 finding Laboratory test 07/14/2013 Erythrocyte Sed Rate 53 mm/Hr High 0-40 finding CBC Auto Diff 07/14/2013 White Blood Count 12.9 10^3/uL High 4.8-10.8 Red Blood Count 3.60 10^6/uL Low 4.0-5.4 Hemoglobin 10.2 g/dL Low 12.0-16.0 Hematocrit 32 % Low 35-47 Mean Corpuscular Volume 88 fL 80-97 Mean Corpuscular Hemoglobin 28 pg 27-31 Mean Corpuscular HGB Conc 32 g/dL 31-36 Red Cell Distribution Width 14 % 10.5-15 Platelet Count 321 10^3/uL 150-450 Mean Platelet Volume 7 um3 Low 7.4-10.4 Abs Neutrophils 7.7 10^3/uL 1.5-7.7 Abs Lymphocytes 4.0 10^3/uL 1.0-4.8 Abs Monocytes 0.9 10^3/uL High 0-0.8 Abs Eosinophils 0.2 10^3/uL 0-0.6 Abs Basophils 0.1 10^3/uL 0-0.2 Abs Nucleated RBC 0 10^3/uL Granulocyte % 59.8 % 38-83 Lymphocyte % 30.8 % 25-47 Monocyte % 7.3 % 1-9 Eosinophil % 1.3 % 0-6 Basophil % 0.8 % 0-2 Nucleated Red Blood Cells % 0 Basic Metabolic Panel 06/22/2013 Sodium 133 mmol/L 133-145 Potassium 3.9 mmol/L 3.7-5.6 Chloride 101 mmol/L 101-111 Co2 Carbon Dioxide 23 mmol/L 22-32 Anion Gap 9 mmol/L 2-11 Glucose 103 mg/dL High 70-100 Blood Urea Nitrogen 27 mg/dL High 6-24 Creatinine 1.55 mg/dL High 0.51-0.95 BUN/Creatinine Ratio 17.4 8-20 Calcium 9.4 mg/dL 8.6-10.3 Egfr Non- 32.3 >60 Egfr 41.5 >60 26 Comp Metabolic Panel 06/22/2013 Sodium 133 mmol/L 133-145 Potassium 3.9 mmol/L 3.7-5.6 Chloride 101 mmol/L 101-111 Co2 Carbon Dioxide 23 mmol/L 22-32 Anion Gap 9 mmol/L 2-11 Glucose 103 mg/dL High 70-100 Blood Urea Nitrogen 27 mg/dL High 6-24 Creatinine 1.55 mg/dL High 0.51-0.95 BUN/Creatinine Ratio 17.4 8-20 Calcium 9.4 mg/dL 8.6-10.3 Total Protein 6.7 g/dL 6.4-8.9 Albumin 4.2 g/dL 3.2-5.2 Globulin 2.5 g/dL 2-4 Albumin/Globulin Ratio 1.7 1-3 Total Bilirubin 0.40 mg/dL 0.2-1.0 Alkaline Phosphatase 55 U/L 34-104 Alt 11 U/L 7-52 Ast 12 U/L Low 13-39 Egfr Non- 32.3 >60 Egfr 41.5 >60 27 CBC Auto Diff 06/22/2013 White Blood Count 16.6 10^3/uL High 4.8-10.8 Red Blood Count 3.79 10^6/uL Low 4.0-5.4 Hemoglobin 11.0 g/dL Low 12.0-16.0 Hematocrit 33 % Low 35-47 Mean Corpuscular Volume 87 fL 80-97 Mean Corpuscular Hemoglobin 29 pg 27-31 Mean Corpuscular HGB Conc 33 g/dL 31-36 Red Cell Distribution Width 14 % 10.5-15 Platelet Count 385 10^3/uL 150-450 Mean Platelet Volume 7 um3 Low 7.4-10.4 Abs Neutrophils 9.0 10^3/uL High 1.5-7.7 Abs Lymphocytes 6.0 10^3/uL High 1.0-4.8 Abs Monocytes 1.3 10^3/uL High 0-0.8 Abs Eosinophils 0.1 10^3/uL 0-0.6 Abs Basophils 0.1 10^3/uL 0-0.2 Abs Nucleated RBC 0.01 10^3/uL Granulocyte % 54.6 % 38-83 Lymphocyte % 36.2 % 25-47 Monocyte % 7.8 % 1-9 Eosinophil % 0.8 % 0-6 Basophil % 0.6 % 0-2 Nucleated Red Blood Cells % 0 Laboratory test finding 06/22/2013 Creatine Kinase 32 U/L 10-223 C Reactive Protein 3.05 mg/L < 5.00 28 Erythrocyte Sed Rate 57 mm/Hr High 0-40 Immunoglobulins Serum Quant 06/22/2013 Immunoglobulin G 487 mg/dL 767 - 1590 29 Immunoglobulin M 267 mg/dL 37 - 286 Immunoglobulin A 131 mg/dL 61 - 356 Cardiolipin Igg,Igm,Iga AB 06/22/2013 Cardiolipin IgG <4.0 GPL 30 Cardiolipin IgM 33.0 MPL 31 Cardiolipin IgA <4.0 APL 32 Lupus Anticoagulant AB 06/22/2013 Prothrombin Time(Lac) 10.5 sec 33 Lac Inr 1.0 Lac Aptt 30 sec 26 - 36 Lac DRVVT Screen Ratio 1.1 ratio 0.0 - 1.1 Lupus Anticoagulant Interpreta See Comment 34 1 Because ethnic data is not always readily available, this report includes an eGFR for both -Americans and non- Americans. The National Kidney Disease Education Program (NKDEP) does not endorse the use of the MDRD equation for patients that are not between the ages of 18 and 70, are , have extremes of body size, muscle mass, or nutritional status, or are non- or non-. According to the National Kidney Foundation, irrespective of diagnosis, the stage of the disease is based on the level of kidney function: Stage Description GFR(mL/min/1.73 m(2)) 1 Kidney damage with normal or decreased GFR 90 2 Kidney damage with mild decrease in GFR 60-89 3 Moderate decrease in GFR 30-59 4 Severe decrease in GFR 15-29 5 Kidney failure <15 (or dialysis) 2 Microcytic anemia. Absolute neutrophilia and monocytosis, favor reactive. Reviewed by Alaina Frank MD 3 SEE RESULT BELOW Name: LATONIA BOTELLO : [address]: Laney MENDEZ Acct: [id number] Unit: [id number] AGE: 82 Location: [facility] Re08/19/17 SEX: F Status: REG REF SPEC: [id number] LACI: 08/19/[address]: Laney MENDEZ REQ: [id number] RECD: 08/19/17 STATUS: DENNYS HECTOR DR: Cyndi Garza MD _ SOURCE: URINE SPDESC: ORDERED: Urine Culture Urine Source: Clean Catch Procedure Result Reported Site Urine Culture Final 08/21/17- 932 ML No growth of clinically significant organisms * ML - Main Lab . END OF REPORT DEPARTMENT OF PATHOLOGY, [address] [place] [address] Luis Lott M.D. Director [facility] # [id number] 4 Because ethnic data is not always readily available, this report includes an eGFR for both -Americans and non- Americans. The National Kidney Disease Education Program (NKDEP) does not endorse the use of the MDRD equation for patients that are not between the ages of 18 and 70, are , have extremes of body size, muscle mass, or nutritional status, or are non- or non-. According to the National Kidney Foundation, irrespective of diagnosis, the stage of the disease is based on the level of kidney function: Stage Description GFR(mL/min/1.73 m(2)) 1 Kidney damage with normal or decreased GFR 90 2 Kidney damage with mild decrease in GFR 60-89 3 Moderate decrease in GFR 30-59 4 Severe decrease in GFR 15-29 5 Kidney failure <15 (or dialysis) 5 Interpretation: Weak Positive (15.0-39.9) REFERENCE VALUE <10.0 (Negative) 6 REFERENCE VALUE <10.0 (Negative) Test Performed by: [address] [address] Route Delivery Service Driver: Thom Baker M.D. 7 REFERENCE VALUE <10.0 (Negative) Test Performed by: [place] [address] Route Delivery Service Driver: Thom Baker M.D. 8 RESULT: No apparent monoclonal protein on serum electrophoresis. Test Performed by: [place] [address] Route Delivery Service Driver: Thom Baker M.D. 9 Acute inflammation: >10.00 10 Potassium reference range changed effective 02/04/14 11 Because ethnic data is not always readily available, this report includes an eGFR for both -Americans and non- Americans. The National Kidney Disease Education Program (NKDEP) does not endorse the use of the MDRD equation for patients that are not between the ages of 18 and 70, are , have extremes of body size, muscle mass, or nutritional status, or are non- or non-. According to the National Kidney Foundation, irrespective of diagnosis, the stage of the disease is based on the level of kidney function: Stage Description GFR(mL/min/1.73 m(2)) 1 Kidney damage with normal or decreased GFR 90 2 Kidney damage with mild decrease in GFR 60-89 3 Moderate decrease in GFR 30-59 4 Severe decrease in GFR 15-29 5 Kidney failure <15 (or dialysis) 12 Test Performed by: [place] [address] Route Delivery Service Driver: Angel Ceja III, M.D. 13 Because ethnic data is not always readily available, this report includes an eGFR for both -Americans and non- Americans. The National Kidney Disease Education Program (NKDEP) does not endorse the use of the MDRD equation for patients that are not between the ages of 18 and 70, are , have extremes of body size, muscle mass, or nutritional status, or are non- or non-. According to the National Kidney Foundation, irrespective of diagnosis, the stage of the disease is based on the level of kidney function: Stage Description GFR(mL/min/1.73 m(2)) 1 Kidney damage with normal or decreased GFR 90 2 Kidney damage with mild decrease in GFR 60-89 3 Moderate decrease in GFR 30-59 4 Severe decrease in GFR 15-29 5 Kidney failure <15 (or dialysis) 14 Acute inflammation: >10.00 15 Unable to calculate due to insufficient protein Unable to calculate due to insufficient protein 16 Because ethnic data is not always readily available, this report includes an eGFR for both -Americans and non- Americans. The National Kidney Disease Education Program (NKDEP) does not endorse the use of the MDRD equation for patients that are not between the ages of 18 and 70, are , have extremes of body size, muscle mass, or nutritional status, or are non- or non-. According to the National Kidney Foundation, irrespective of diagnosis, the stage of the disease is based on the level of kidney function: Stage Description GFR(mL/min/1.73 m(2)) 1 Kidney damage with normal or decreased GFR 90 2 Kidney damage with mild decrease in GFR 60-89 3 Moderate decrease in GFR 30-59 4 Severe decrease in GFR 15-29 5 Kidney failure <15 (or dialysis) 17 Acute inflammation: >10.00 18 Because ethnic data is not always readily available, this report includes an eGFR for both -Americans and non- Americans. The National Kidney Disease Education Program (NKDEP) does not endorse the use of the MDRD equation for patients that are not between the ages of 18 and 70, are , have extremes of body size, muscle mass, or nutritional status, or are non- or non-. According to the National Kidney Foundation, irrespective of diagnosis, the stage of the disease is based on the level of kidney function: Stage Description GFR(mL/min/1.73 m(2)) 1 Kidney damage with normal or decreased GFR 90 2 Kidney damage with mild decrease in GFR 60-89 3 Moderate decrease in GFR 30-59 4 Severe decrease in GFR 15-29 5 Kidney failure <15 (or dialysis) 19 Acute inflammation: >10.00 20 Because ethnic data is not always readily available, this report includes an eGFR for both -Americans and non- Americans. The National Kidney Disease Education Program (NKDEP) does not endorse the use of the MDRD equation for patients that are not between the ages of 18 and 70, are , have extremes of body size, muscle mass, or nutritional status, or are non- or non-. According to the National Kidney Foundation, irrespective of diagnosis, the stage of the disease is based on the level of kidney function: Stage Description GFR(mL/min/1.73 m(2)) 1 Kidney damage with normal or decreased GFR 90 2 Kidney damage with mild decrease in GFR 60-89 3 Moderate decrease in GFR 30-59 4 Severe decrease in GFR 15-29 5 Kidney failure <15 (or dialysis) 21 Acute inflammation: >10.00 22 Because ethnic data is not always readily available, this report includes an eGFR for both -Americans and non- Americans. The National Kidney Disease Education Program (NKDEP) does not endorse the use of the MDRD equation for patients that are not between the ages of 18 and 70, are , have extremes of body size, muscle mass, or nutritional status, or are non- or non-. According to the National Kidney Foundation, irrespective of diagnosis, the stage of the disease is based on the level of kidney function: Stage Description GFR(mL/min/1.73 m(2)) 1 Kidney damage with normal or decreased GFR 90 2 Kidney damage with mild decrease in GFR 60-89 3 Moderate decrease in GFR 30-59 4 Severe decrease in GFR 15-29 5 Kidney failure <15 (or dialysis) 23 Acute inflammation: >10.00 24 Because ethnic data is not always readily available, this report includes an eGFR for both -Americans and non- Americans. The National Kidney Disease Education Program (NKDEP) does not endorse the use of the MDRD equation for patients that are not between the ages of 18 and 70, are , have extremes of body size, muscle mass, or nutritional status, or are non- or non-. According to the National Kidney Foundation, irrespective of diagnosis, the stage of the disease is based on the level of kidney function: Stage Description GFR(mL/min/1.73 m(2)) 1 Kidney damage with normal or decreased GFR 90 2 Kidney damage with mild decrease in GFR 60-89 3 Moderate decrease in GFR 30-59 4 Severe decrease in GFR 15-29 5 Kidney failure <15 (or dialysis) 25 Acute inflammation: >10.00 26 Because ethnic data is not always readily available, this report includes an eGFR for both -Americans and non- Americans. The National Kidney Disease Education Program (NKDEP) does not endorse the use of the MDRD equation for patients that are not between the ages of 18 and 70, are , have extremes of body size, muscle mass, or nutritional status, or are non- or non-. According to the National Kidney Foundation, irrespective of diagnosis, the stage of the disease is based on the level of kidney function: Stage Description GFR(mL/min/1.73 m(2)) 1 Kidney damage with normal or decreased GFR 90 2 Kidney damage with mild decrease in GFR 60-89 3 Moderate decrease in GFR 30-59 4 Severe decrease in GFR 15-29 5 Kidney failure <15 (or dialysis) 27 Because ethnic data is not always readily available, this report includes an eGFR for both -Americans and non- Americans. The National Kidney Disease Education Program (NKDEP) does not endorse the use of the MDRD equation for patients that are not between the ages of 18 and 70, are , have extremes of body size, muscle mass, or nutritional status, or are non- or non-. According to the National Kidney Foundation, irrespective of diagnosis, the stage of the disease is based on the level of kidney function: Stage Description GFR(mL/min/1.73 m(2)) 1 Kidney damage with normal or decreased GFR 90 2 Kidney damage with mild decrease in GFR 60-89 3 Moderate decrease in GFR 30-59 4 Severe decrease in GFR 15-29 5 Kidney failure <15 (or dialysis) 28 Acute inflammation: >10.00 In accordance with FDA guideline, CRP is now reported in mg/L, previous reporting was in mg/dL. 29 Test Performed by: [address] [address] Route Delivery Service Driver: Angel Ceja III, M.D. 30 -- REFERENCE VALUE -- <10.0 (Negative) 31 Interpretation: Weak Positive (15.0-39.9) -- REFERENCE VALUE -- <10.0 (Negative) 32 -- REFERENCE VALUE -- <10.0 (Negative) Test Performed by: [place] [address] Route Delivery Service Driver: Angel Ceja III, M.D. 33 -- REFERENCE VALUE -- 10.3 - 12.8 34 No evidence of a lupus-like anticoagulant based on results of Prothrombin Time (PT), Activated Partial Thromboplastin Time (APTT), and Dilute Russells Viper Venom Time (DRVVT). Interpretation not reviewed by physician. Test Performed by: [place] [address] Route Delivery Service Driver: Angel Ceja III, M.D. Procedures Date CPT Code Description Status 04/23/2016 89972 Arevalo/Facet/Foraminotomy;Vertebral Segment; Lumbar Completed 04/23/2016 17346 Arevalo/Facet/Foraminotomy;Vertebral Segment; Lumbar Completed 11/20/2008 87056 ECHO Transthoracic, Real-Time 2D With Doppler And Color Completed Flow 01/19/2006 83172 EKG Tracing & Interpretation Completed 12/22/2005 99314 Holter Monitor Interpretation Completed 12/22/2005 85533 Holter Monitor Interpretation Completed 04/22/2005 31857 Holter Monitor Completed 04/13/2005 38068 EKG Tracing & Interpretation Completed 04/02/2005 75536 ECHO/Stress Completed 04/02/2005 91767 Stress Test Completed 04/01/2005 87422 Color Doppler Completed 04/01/2005 47445 Pulse Doppler & Continuous Wave Completed 04/01/2005 54015 Echocardiogram Completed 03/18/2005 26846 EKG Tracing & Interpretation Completed Encounters Type Date Location Provider CPT E/M Dx Office Visit 08/06/2017 [facility] M.D. 71098 M17.11 10:30a [facility] M21.061 M25.561 M25.461 M17.0 Office Visit 04/13/2016 2:30p [facility] Soto Martell, 76859 M48.06 Of [facility] M.D. Office Visit 02/14/2014 10:20a [facility] Tiago Rehman, [address] 725 [facility] Alex.DKevin 279.06 724.02 461.1 Office Visit 12/12/2013 10:20a [facility] Tiago Rehman M.D. 14152 725 [facility] 279.06 724.02 Office Visit 11/10/2013 11:40a [facility] Tiago Rehman M.D. 79354 725 [facility] 279.06 795.79 721.3 Office Visit 08/24/2013 1:00p [facility] Tiago Rehman M.D. 17215 725 [employer] 795.79 724.02 790.6 279.06 Office Visit 06/14/2013 2:00p [facility] iTago Rehman M.D. 10688 725 [facility] 795.79 724.02 Office Visit 01/19/2006 9:10a [facility] Qutaybeh S. Maghaydah, 42477 401.0 M.D. 785.1 272.4 Office Visit 07/21/2005 2:20p [facility] Qutaybeh S. Maghaydah, 99802 401.0 M.D. 427.69 Office Visit 03/18/2005 10:20a [facility] Qutaybeh S. Maghaydah, 87381 785.1 M.D. 401.0 414.01 Plan of Care Future Appointment(s):09/27/2017 8:45 am - Cyndi Garza M.D. at [facility]09/14/2017 1:30 pm - Pavan Garcia PA-C at [facility]09/14/2017 1:30 pm - LADARIUS Neal at [facility]09/14/2017 1:30 pm - Cyndi Garza M.D. at [facility]09/01/2017 - Cyndi Garza M.D.M25.561 Pain in right kneeFollow up:Follow up: 2 weeks after xdbdkinL15.461 Effusion, right kneeM21.061 Valgus deformity, not elsewhere classified, right kneeM17.11 Unilateral primary osteoarthritis, right knee
[2017-09-14] MEDS ORDERED: Gabapentin CAP(*) 300 MG ONE (12:55)
[2017-09-14] MEDS ORDERED: ceFAZolin 2 GM PREMIX (*) 2 GM/50 ML BAG IVPB ONE (12:55)
[2017-09-14] MEDS ORDERED: Buffered Lidocaine 0.9% SYRIN* 5 ML/SYR SYRINGE ONE (12:55)
[2017-09-14] MEDS ORDERED: Famotidine IV* 10 MG/ML 2 ML (20 mg) ONE (12:55)
[2017-09-14] MEDS ORDERED: Lidocaine 2% PF * 5 ML VIAL ONE (13:32)
[2017-09-14] MEDS ORDERED: Propofol* 10 MG/ML 20 ML BTL IV PUSH ONE (13:32)
[2017-09-14] MEDS ORDERED: Ondansetron ODT TAB* 4 MG ONE (13:32)
[2017-09-14] MEDS ORDERED: Dexamethasone IV* 4 MG/ML 1 ML (4 MG) ONE (13:32)
[2017-09-14] MEDS ORDERED: fentaNYL* 50 MCG/ML 2 ML VIAL (100 MCG VIAL) ONE ×3 (13:32→17:46)
[2017-09-14] MEDS ORDERED: Midazolam* 1 MG/ML 10 ML VIAL (10 MG) ONE (13:33)
[2017-09-14] MEDS ORDERED: KETAMINE HCL* 50 MG/ML 10 ML VIAL ONE (13:33)
[2017-09-14] MEDS ORDERED: EPHEDrine (Pressors)* 50 MG/ML VIAL ONE (15:26)
[2017-09-14] MEDS ORDERED: Atropine 1MG/ML INJ* 1 ML VIAL ONE (15:41)
[2017-09-14] MEDS ORDERED: Bupivacaine 0.5% SDV PF* 30ML VIAL ONE (16:03)
[2017-09-14] MEDS ORDERED: HYDROmorphone INJ* 1 MG/ML CARPUJECT SYRINGE IV PRN (16:17)
[2017-09-14] MEDS ORDERED: Ondansetron INJ* 2 MG/ML VIAL IV PRN ×2 (16:17→17:29)
[2017-09-14] MEDS ORDERED: Naloxone* 0.4 MG/ML 1 ML VIAL IV PRN (16:17)
[2017-09-14] MEDS ORDERED: HYDROmorphone INJ* 0.5 MG/0.5 ML SYRINGE ONE (17:08)
[2017-09-14] MEDS ORDERED: Ondansetron TAB* 4 MG PO PRN (17:29)
[2017-09-14] MEDS ORDERED: oxyCODONE/Acetamin 5/325 MG* TAB PO PRN (17:29)
[2017-09-14] MEDS ORDERED: Magnesium Hydroxide LIQ* 30 ML UDC PO PRN (17:29)
[2017-09-14] MEDS ORDERED: Morphine VIAL* 4 MG/ML VIAL (1 ml vial) IV PRN (17:29)
[2017-09-14] MEDS ORDERED: Bisacodyl SUPP* 10 MG SUPP PR PRN (17:29)
[2017-09-14] MEDS ORDERED: diPHENhydraMINE IV* 50 MG/ML 1 ml VIAL (BENADRYL) IV PRN (17:29)
[2017-09-14] MEDS ORDERED: oxyCODONE TAB* 5 MG TAB PO PRN (17:29)
[2017-09-14] MEDS ORDERED: Polyethylene Glycol 3350* 17 GM PACKET PO PRN (17:29)
[2017-09-14] MEDS ORDERED: Prochlorperazine TAB* 5 MG PO PRN (17:34)
[2017-09-14] MEDS: fentaNYL* 50 MCG/ML 2 ML VIAL (100 MCG VIAL) IV PRN ×2 (17:48→18:17)
[2017-09-14] MEDS ORDERED: HYDROmorphone INJ* 2 MG/ML CARPUJECT SYRINGE ONE (18:20)
--- NOTE | 2017-09-14 18:37 | RAD ---
INDICATION: Status post total right knee replacement surgery. COMPARISON: Comparison is made with a prior study from August 06, 2017. TECHNIQUE: 2 views of the right knee were obtained. FINDINGS: The patient is status post total right knee replacement surgery. The bones and prostheses are in normal alignment. There is a small amount of air in the adjacent soft tissues consistent with the patient's recent surgery. IMPRESSION: STATUS POST TOTAL RIGHT KNEE REPLACEMENT SURGERY.
[2017-09-14] MEDS ORDERED: Losartan TAB* 25 MG PO ONE (19:00)
[2017-09-14] MEDS: Losartan TAB* 25 MG PO SCH (20:42)
[2017-09-14] MEDS ORDERED: Warfarin TAB(*) 6 MG PO ONE (21:00)
[2017-09-14] MEDS: Magnesium Hydroxide LIQ* 30 ML UDC PO SCH (21:43)
[2017-09-14] MEDS: Docusate CAP* 100 MG PO SCH (21:45)
[2017-09-14] MEDS: Diltiazem CD CAP* 180 MG PO SCH (21:46)
--- NOTE | 2017-09-14 22:32 | CONS ---
[facility] MEDICINE CONSULTATION REPORT: DATE OF CONSULT: 09/14/17 ATTENDING PHYSICIAN: Dr. Cyndi Garza. CONSULTING PHYSICIAN: Dr. Viridiana Carvajal (dictation provided by Echo Gore NP) REASON FOR CONSULT: Medical co-management in a patient admitted for right total knee arthroplasty. HISTORY OF PRESENT ILLNESS: Ms. Botello is an 82-year-old female with a past medical history of hypertension, high cholesterol, chronic kidney disease with last known creatinine 1.48, anemia, hypothyroidism and a history of melanoma, who presented to the hospital today for planned right total knee arthroplasty. Please see the dictated H and P from Dr. Cyndi Garza's team for complete details. In brief, the patient had ongoing right knee pain and for this reason elected for surgical intervention when conservative medical management failed. The patient is very drowsy in the PACU today at the time of my examination, but I did review the patient's history of present illness with the patient's , he stated that she has been doing quite well before surgery other than her ongoing right knee pain. Per the report, the patient experienced some bradycardia preoperatively. Her vitals have been stable in the postoperative period and heart rate is running about 72 with a blood pressure that is actually on the high end at 178/82, likely secondary to pain. PAST MEDICAL HISTORY: 1. History of melanoma. 2. Hypertension. 3. High cholesterol. 4. Chronic kidney disease. 5. Anemia. 6. Hypothyroidism. 7. GERD. PAST SURGICAL HISTORY: Cholecystectomy, thyroidectomy, melanoma excision, right carpal tunnel release, cataract removal, laminectomy and right knee arthroscopy. MEDICATIONS: 1. Diltiazem XT 180 mg p.o. q.a.m. 2. Clonazepam 0.5 mg p.o. p.r.n. 3. Zolpidem 10 mg p.o. at bedtime p.r.n. 4. Vitamin D 1 tab p.o. q.p.m. 5. Compazine half tab p.o. q.6 hours p.r.n. 6. Omeprazole 20 mg p.o. q.a.m. 7. Losartan 50 mg p.o. b.i.d. 8. Levothyroxine 88 mcg p.o. q.a.m. 9. Fluticasone nasal spray 2 sprays nasally daily. 10. Cetirizine 10 mg p.o. daily p.r.n. 11. Calcium carbonate 1 chewable tab p.o. p.r.n. 12. Betamethasone 0.1% ointment 1 application topically p.r.n. 13. Aspirin 81 mg p.o. q.p.m. 14. Tylenol p.r.n. ALLERGIES: To AMOXICILLIN, ATORVASTATIN, AZITHROMYCIN, CLAVULANIC ACID, CLONIDINE, DOXAZOSIN, HYDROCODONE, LISINOPRIL, NIACIN, PRAVASTATIN, SPIRONOLACTONE, BETA-ROJELIO, STATINS, and TRAMADOL. FAMILY HISTORY: Unobtainable from the patient today. Per the report from the orthopedic team, the patient's family has a history of coronary artery disease, hypertension, stroke and chronic kidney disease. SOCIAL HISTORY: Again, not obtainable directly from the patient, but there is no report of alcohol, tobacco or drug use from the record or from the patient's . REVIEW OF SYSTEMS: Unobtainable. PHYSICAL EXAM: Vital Signs: Temperature 97.9, pulse rate 72, respiratory rate 15, O2 saturation 99% on 4 L nasal cannula, blood pressure 178/82. General: Ms. Botello is lying in the bed. She appears not to be in any acute distress. She is very drowsy. She opens her eyes to voice and confirms that she does have pain when awake, but is otherwise sleeping. She moves all extremities equally. There is no facial asymmetry or focal weakness. Extraocular movements are intact. Heart: S1, S2. No murmur, rub or gallop and regular. Lungs are clear to auscultation bilaterally with no accessory muscle use and good aeration. The abdomen is soft, nontender with bowel sounds positive x4. Extremities: No cyanosis, no edema. Skin is intact other than the right knee incision, which was not assessed today in the immediate perioperative state. DIAGNOSTIC STUDIES/LAB DATA: Sodium 138, potassium 4.2, chloride 101, serum bicarbonate 27, BUN 15, creatinine 1.48, glucose 104. WBC 11.4, hemoglobin 9.2 , hematocrit 30, platelet count 396. ASSESSMENT: Ms. Botello is an 82-year-old female with a past medical history of hypertension, hypothyroidism, anemia and chronic kidney disease, who presents to the hospital today for a planned right total knee arthroplasty. PLAN/RECOMMENDATIONS: Our recommendations are as follows: 1. Status post right knee arthroplasty. Management will continue to be per orthopedic services team. The patient will have pain medication p.r.n. and bowel regimen. She will have physical and occupational therapy. We will follow H and Hs closely. 2. Hypertension. Plan to continue losartan and diltiazem as the patient's blood pressure was elevated in the PACU to 170 systolically. We will continue to monitor closely. 3. Hypothyroidism. Continue levothyroxine. 4. DVT prophylaxis with Lovenox and warfarin. 5. Code status is full code. TIME SPENT: Approximately 60 minutes were spent on the admission of this patient, more than half of that time spent with her and her at the bedside reviewing the events leading up to this hospitalization, performing the physical examination and reviewing the plan of care. ECHO GORE NP [id number]/CPS #: [id number] HALLIE
[2017-09-14] MEDS: Clindamycin 600 MG IVPREMIX(* 600 MG/50 ML SDV IV SCH (23:07)
[2017-09-15] MEDS: oxyCODONE/Acetamin 5/325 MG* TAB PO PRN ×3 (00:23→13:39)
[2017-09-15] MEDS: Levothyroxine TAB* 88 MCG TAB PO SCH (06:02)
[2017-09-15 06:35] LABS: Hematocrit 27 % (35-47); Hemoglobin 8.4 g/dl (12.0-16.0); Mean Platelet Volume 6.6 um3 (7.4-10.4); Platelet Count 262 10^3/ul (150-450)
[2017-09-15 06:38] LABS: INR 0.96 (0.77-1.02)
[2017-09-15 06:51] LABS: EGFR Non-African American 41.7 (>60)
[2017-09-15] MEDS: Clindamycin 600 MG IVPREMIX(* 600 MG/50 ML SDV IV SCH ×2 (06:55→14:47)
[2017-09-15] MEDS: Omeprazole CAP* 20 MG PO SCH (07:04)
[2017-09-15] MEDS: Docusate CAP* 100 MG PO SCH ×2 (08:20→21:06)
[2017-09-15] MEDS: Magnesium Hydroxide LIQ* 30 ML UDC PO SCH ×2 (08:20→21:04)
[2017-09-15] MEDS: Losartan TAB* 25 MG PO SCH ×2 (08:20→21:13)
[2017-09-15] MEDS ORDERED: Ondansetron 40 MG VIAL* 2 MG/ML 20 ML VIAL IV PRN (10:00)
[2017-09-15] MEDS ORDERED: Enoxaparin(*) 30 MG/0.3 ML SYR SUBCUT SCH (12:00)
--- NOTE | 2017-09-15 12:18 | PN ---
Progress Note - Progress Note Date of Service: 09/15/17 SOAP: Subjective: [Pt is an 82 y/o female who underwent a Right total knee arthroplasty on 2017. She was seen laying in bed this morning. She states that she is doing quite well, pain is well controlled. She was able to get up with PT today. She is interested in discharge tomorrow morning. She denies any chest pain or SOB. ] Objective: [General: Alert, awake and oriented. NAD RLE: Dressing is c/d/i. able to df/pf. Calf is soft and non tender. 2+ DP pulse. NVI distally. ] Vital Signs Temp 97.9 F 09/15/17 07:32 Pulse 68 09/15/17 07:32 Resp 16 09/15/17 11:11 BP 126/50 09/15/17 07:32 Pulse Ox 93 09/15/17 07:32 Intake & Output 09/14/17 09/15/17 09/15/17 18:59 06:59 18:59 Intake Total 2100 1965 450 Output Total 475 750 200 Balance 1625 1215 250 Weight 171 lb Intake: IV Fluids 2100 1280 LR 2000 1280 NS 100ML, Cefazolin 2G 100 IVPB 55 Clindamycin 55 Oral 630 450 Output: Urine 200 Can 225 750 Estimated Blood Loss 250 Assessment: [POD 1 RTKA ] Plan: [-Possible DC tomorrow morning - Continue with pain medication prn - INR was 0.96 today, 8mg of warfarin tonight - Continue with PT/OT - Hospitalists co-managing. ]
--- NOTE | 2017-09-15 12:40 | OP ---
DATE OF OPERATION: 09/14/17 - ROOM #348 DATE OF : 33 ATTENDING SURGEON: Cyndi Garza MD. DIETETICS DIRECTOR: LADARIUS Portillo. Ms. Yanez did help throughout the procedure with preparation of the leg, wound retraction, manipulation of the knee, and wound closure. ANESTHESIOLOGIST: Dr. Daily. ANESTHESIA: Spinal. 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 OPERATIVE PROCEDURE: Right total knee arthroplasty. TOURNIQUET TIME: 48 minutes. COMPLICATIONS: None. ESTIMATED BLOOD LOSS: 200 cc. SPECIMEN: Bone and cartilage from the right knee joint sent to Pathology. HARDWARE USED: This is cemented [employer] total knee arthroplasty hardware. For the femur, a right posterior stabilized Legion narrow Oxinium femoral component, 5 narrow. For the tibia, a size 3 right tibial base plate Veda II. For the insert, a 9-mm posterior stabilized articular insert size 3- 4. For the patella, a 29-mm, 7.5 thickness 3-peg all poly patella. BRIEF HISTORY/INDICATION: Ms. Botello is an 82-year-old female with years of increasingly severe right knee pain and valgus deformity. She failed conservative treatment with anti-inflammatories, pain medication, intraarticular injection, and physical therapy. Due to continued pain and decreased quality of life, she elected to undergo a right total knee arthroplasty. Radiographs showed [id number] arthritis. Informed consent was obtained from the patient. She under-stood the risks of surgery included but were not limited to bleeding, infection, damage to nearby structures, continued pain, need for further surgery, intraoperative fracture, nerve palsy, hardware failure or loosening, knee stiffness, loss of motion, stroke, heart attack, blood clot, and . She wished to proceed. INTRAOPERATIVE FINDINGS: Intraoperatively, the patient was noted to have a 15- degree valgus deformity that was corrected to anatomic valgus. She had 10 to 120 degrees of flexion. She had severe endstage loss of cartilage in all three compartments with extensive osteophyte formation. DESCRIPTION OF PROCEDURE: Ms. Botello was identified in the preanesthesia unit. Her right lower extremity was marked as the correct operative side. Informed consent was signed and placed in the chart. The patient was taken to the operating room and placed under spinal anesthesia. A Can catheter was placed. Tourniquet was placed on the right thigh. Right lower extremity was prepped and draped in the usual sterile fashion. Preop time-out was made to correctly identify the patient's side and site. Appropriate perioperative antibiotics were given within 1 hour of incision. Tourniquet was inflated and tourniquet time for this procedure was 48 minutes. A 12-cm midline incision was made with a 10 blade and carried down to the extensor mechanism. A new 10 blade was used to make a standard medial parapatellar arthrotomy. Patella was subluxed laterally. Electrocautery was used to subperiosteally elevate the soft tissue off the superomedial tibia to the mid sagittal plane. The knee was flexed up. The anterior horn of the lateral meniscus was not present. The ACL was sharply released. A drill was used to enter the distal femur. Intramedullary distal femoral cutting guide was pinned on the distal femur. Oscillating saw was used to make the appropriate distal femoral cut. Next, the external rotation guide was pinned on the distal femur and distal femur was sized to a size 5. A size 5 multi- cutting jig was pinned on the distal femur. Oscillating saw was used to make the appropriate 4 chamfer cuts. The PCL was completely released and the tibia was subluxed anteriorly. Extramedullary tibial cutting guide was pinned on the proximal tibia. Oscillating saw was used to make the proximal tibial cut perpendicular to the mechanical axis of the tibia. The bone was carefully removed. The knee was brought out into full extension. Spacer block had a good fit with good medial and lateral ligamentous balancing. The knee was in full extension. Flexion and extension gaps were well balanced. The knee was flexed up. The lamina distribution a class lineman was placed both medially and laterally. Any remaining meniscus was carefully removed using electrocautery. Curved osteotome was used to remove any posterior osteophytes. Tibial tray and drop kaiser were placed and confirmed a satisfactory proximal tibial cut. A size 5 right narrow femoral trial was impacted onto the distal femur and had an excellent fit. The box for the posterior stabilized implant was prepared using a reamer and box cut osteotome. A size 3 tibial tray trial with a 9-mm insert trial was placed, and the knee was taken through a range of motion. There was full extension to 130 degrees of flexion. There was satisfactory patellofemoral tracking. The patella was everted. 7 mm of patellar bone and cartilage was carefully removed using an oscillating saw. The patella was sized to a size 29. Three peg holes were drilled through the size 29 guide. A 29 trial with 7.5 thickness was placed and the knee was taken through a range of motion. There was satisfactory patellofemoral tracking. All trials were removed. The tibia was subluxed anteriorly and sized to a size 3. Proximal tibia was prepared using a size 3 keel punch. All bony cut surfaces were copiously irrigated with sterile saline and dried. Final implants were cemented into place starting with the tibia, followed by the femur and last, the patella. A 9-mm insert trial was placed and the knee was brought out into full extension. Tourniquet was turned down at 48 minutes. The knee was copiously irrigated with sterile saline. Electrocautery was used to obtain meticulous hemostasis. Once the cement had fully cured, the insert trial was removed. Any excess cement from around the capsule and hardware was removed. Final insert chosen was a 9-mm posterior stabilized articular insert, size 3-4. This was locked into position on the tibial tray. Stability of the insert was checked and rechecked and noted to be stable. The knee was copiously irrigated with sterile saline once again. The extensor mechanism was closed using interrupted #1 Vicryls. The rest of the incision was closed in a layered fashion using 0 and 2-0 Vicryls. Skin was closed using running 3-0 nylon suture. Sterile Xeroform, 4x4s, and Webril were used to cover the incision. Dwain wrap and cold pack were placed over this. The patient' s anesthesia was reversed without difficulty. She was taken to the PACU in stable condition. Intended weightbearing will be weightbearing as tolerated. Intended DVT prophylaxis will be Coumadin with a Lovenox bridge. [id number]/[facility] #: [id number] HALLIE
[2017-09-15] MEDS ORDERED: Warfarin TAB(*) 4 MG PO ONE (17:00)
[2017-09-15] MEDS: Acetaminophen TAB* 325 MG PO PRN ×2 (17:16→21:12)
[2017-09-15] MEDS: clonazePAM TAB(*) 0.5 MG PO PRN (17:16)
[2017-09-15] MEDS: Diltiazem CD CAP* 180 MG PO SCH (17:16)
[2017-09-15] MEDS ORDERED: traMADol TAB* 50 MG PO PRN (17:26)
--- NOTE | 2017-09-15 17:26 | PN ---
Subjective Date of Service: 09/15/17 Interval History: Patient seen and examined. Feeling well, had mild nausea this morning which is resolving. States no pain when laying down but increases with ambulation and movement. Denies SOB, no fever or chills, no chest pain, passing flatus. No further complaints. Objective Active Medications: Acetaminophen (Tylenol Tab*) 650 mg PO Q4H PRN PRN Reason: PAIN OR TEMPERATURE Last Admin: 09/15/17 17:16 Dose: 650 mg Bisacodyl (Dulcolax Supp*) 10 mg [place] DAILY PRN PRN Reason: constipation Clonazepam (Klonopin Tab(*)) 0.5 mg PO ONCE PRN PRN Reason: ANXIETY Last Admin: 09/15/17 17:16 Dose: 0.5 mg Cyclobenzaprine HCl (Flexeril Tab*) 10 mg PO TID PRN PRN Reason: SPASMS Diltiazem HCl (Cardizem Cd Cap*) 180 mg PO QPM [facility] Last Admin: 09/15/17 17:16 Dose: 180 mg Diphenhydramine HCl (Benadryl Iv*) 12.5 mg IV Q6H PRN PRN Reason: PRURITIS Docusate Sodium (Colace Cap*) 100 mg PO BID [facility] Last Admin: 09/15/17 08:20 Dose: 100 mg Enoxaparin Sodium (Lovenox(*)) 30 mg SUBCUT Q24H [facility] Last Admin: 09/15/17 11:32 Dose: 30 mg Lactated Ringer's (Lactated Ringers 1000 Ml Bag*) 1,000 mls @ 100 mls/hr IV PER RATE [facility] Last Admin: 09/15/17 06:55 Dose: 100 mls/hr Lactulose (Lactulose*) 30 ml PO Q6H PRN PRN Reason: constipation Levothyroxine Sodium (Synthroid Tab*) 88 mcg PO 0600 [facility] Last Admin: 09/15/17 06:02 Dose: 88 mcg Losartan Potassium (Cozaar Tab*) 50 mg PO BID [facility] Last Admin: 09/15/17 08:20 Dose: 50 mg Magnesium Hydroxide (Milk Of Magnesia Liq*) 30 ml PO BID [facility] Last Admin: 09/15/17 08:20 Dose: 30 ml Magnesium Hydroxide (Milk Of Magnesia Liq*) 30 ml PO Q6H PRN PRN Reason: constipation Morphine Sulfate (Morphine Vial*) 2 mg IV Q2H PRN PRN Reason: PAIN Omeprazole (Prilosec Cap*) 20 mg PO QAM [facility]EL[facility] Last Admin: 09/15/17 07:04 Dose: 20 mg Ondansetron HCl (Zofran Tab*) 4 mg PO Q6H PRN PRN Reason: NAUSEA Ondansetron HCl (Zofran 40 Mg Vial*) 4 mg IV Q6H PRN PRN Reason: nausea Last Admin: 09/15/17 10:08 Dose: 4 mg Oxycodone HCl (Roxycodone Tab*) 10 mg PO Q4H PRN PRN Reason: SEVERE PAIN Last Admin: 09/15/17 09:00 Dose: 10 mg Oxycodone/Acetaminophen (Percocet 5/325 Tab*) 2 tab PO Q4H PRN PRN Reason: PAIN Oxycodone/Acetaminophen (Percocet 5/325 Tab*) 1 tab PO Q4H PRN PRN Reason: PAIN Last Admin: 09/15/17 13:39 Dose: 1 tab Polyethylene Glycol/Electrolytes (Miralax*) 17 gm PO DAILY PRN PRN Reason: Constipation Zolpidem Tartrate (Ambien Tab*) 10 mg PO BEDTIME PRN PRN Reason: SLEEP Vital Signs - 8 hr 09/15/17 09/15/17 09/15/17 11:11 11:25 13:39 Temperature 97.4 F Pulse Rate 63 Respiratory 16 17 18 Rate Blood Pressure 130/51 (mmHg) O2 Sat by Pulse 93 Oximetry 09/15/17 09/15/17 09/15/17 15:28 15:40 16:00 Temperature 97.9 F Pulse Rate 76 Respiratory 16 16 Rate Blood Pressure 126/54 (mmHg) O2 Sat by Pulse 97 97 Oximetry 09/15/17 17:16 Temperature Pulse Rate Respiratory 16 Rate Blood Pressure (mmHg) O2 Sat by Pulse Oximetry Oxygen Devices in Use Now: None Appearance: Alert, NAD Eyes: PERRLA Ears/Nose/Mouth/Throat: Mucous Membranes Moist Neck: NL Appearance and Movements; NL JVP, Trachea Midline Respiratory: Symmetrical Chest Expansion and Respiratory Effort, Clear to Auscultation Cardiovascular: NL Sounds; No Murmurs; No JVD, RRR, No Edema Abdominal: NL Sounds; No Tenderness; No Distention Extremities: No Edema Skin: No Rash or Ulcers Neurological: Alert and Oriented x 3, NL Sensation Nutrition: Taking PO's Result Diagrams: 09/15/17 06:22 09/15/17 06:22 Assess/Plan/Problems-Billing Assessment: This is an 82 year old female with hx of HTN, CKD, anxiety, OA, hypothyroidism and chronic anemia that presented for elective RTKA. - Patient Problems (1) Status post total knee replacement, right Code(s): Z96.651 - PRESENCE OF RIGHT ARTIFICIAL KNEE JOINT SNOMED Code(s): 8134344018836 Comment: - POD1, POC as per ortho - Pain control, bowel regimen, anti-emetics, OOB with PT/OT - DVT prophy with lovenox/coumadin bridge (2) CKD (chronic kidney disease) stage 3, GFR 30-59 ml/min Code(s): N18.3 - CHRONIC KIDNEY DISEASE, STAGE 3 (MODERATE) SNOMED Code(s): 939645825 Comment: - Creatinine at baseline 1.23 - follow renal function (3) Chronic disease anemia Code(s): D63.8 - ANEMIA IN OTHER CHRONIC DISEASES CLASSIFIED ELSEWHERE SNOMED Code(s): 571437789 Comment: - 2/2 CKD - Hgb 9.2 preop, 8.4 today - Monitor H&H (4) Hypothyroid Code(s): E03.9 - HYPOTHYROIDISM, UNSPECIFIED SNOMED Code(s): 63007079 Comment: - Continue synthroid daily (5) Hypertension Code(s): I10 - ESSENTIAL (PRIMARY) HYPERTENSION SNOMED Code(s): 94233145 Comment: - Stable on losartan and diltiazem (6) Full code status Code(s): Z78.9 - OTHER SPECIFIED HEALTH STATUS SNOMED Code(s): 186537897 Status and Disposition: remain inpatient
[2017-09-15] MEDS ORDERED: HYDROmorphone TAB* 2 MG PO PRN (18:22)
[2017-09-15] MEDS: Cyclobenzaprine TAB* 10 MG PO PRN (21:11)
[2017-09-15] MEDS: Zolpidem TAB* 10 MG PO PRN (21:12)
[2017-09-16] MEDS: Acetaminophen TAB* 325 MG PO PRN ×4 (04:15→16:54)
[2017-09-16] MEDS: Cyclobenzaprine TAB* 10 MG PO PRN (05:40)
[2017-09-16] MEDS: Levothyroxine TAB* 88 MCG TAB PO SCH (05:40)
[2017-09-16 06:00] LABS: Hematocrit 24 % (35-47); Hemoglobin 7.5 g/dl (12.0-16.0); Platelet Count 245 10^3/ul (150-450)
[2017-09-16 06:03] LABS: INR 1.82 (0.77-1.02)
[2017-09-16] MEDS: Losartan TAB* 25 MG PO SCH ×2 (08:20→22:01)
[2017-09-16] MEDS: oxyCODONE/Acetamin 5/325 MG* TAB PO PRN (08:23)
[2017-09-16] MEDS: Omeprazole CAP* 20 MG PO SCH (08:23)
[2017-09-16] MEDS: Magnesium Hydroxide LIQ* 30 ML UDC PO SCH ×2 (08:24→19:50)
[2017-09-16] MEDS: Docusate CAP* 100 MG PO SCH ×2 (08:24→22:02)
--- NOTE | 2017-09-16 08:30 | PN ---
Progress Note - Progress Note Date of Service: 09/16/17 SOAP: Subjective: [Pt. c/o pain 8/10 when moving or trying to bear weight on R LE. Had some nausea yesterday with narcotics but feeling better this morning. Denies CP, SOB , dizziness. Hopes to go home tomorrow.] Objective: [A and O x 3. NAD. Seated in chair R knee dressing changed. Surgical wound benign. No drainage or erythema. Calves soft, NT. Distal gross motor, NV function intact Vital Signs: Temp Pulse Resp BP Pulse Ox 98.2 F 63 16 120/52 93 09/16/17 07:10 09/16/17 07:10 09/16/17 08:23 09/16/17 07:10 09/16/17 07:10 Laboratory Results - last 24 hr 09/16/17 09/16/17 05:12 05:12 Hgb 7.5 L Hct 24 L Plt Count 245 MPV 7.0 L INR (Anticoag Therapy) 1.82 H ] Assessment: 82 yo female s/p R TKA[] Plan: [D/C Lovenox Con't PT/OT Pain management INR 1.82 - 4 mg Coumadin [facility] co-managing Plan for D/C home with VNS tomorrow]
[2017-09-16] MEDS: Diltiazem CD CAP* 180 MG PO SCH (16:55)
[2017-09-16] MEDS ORDERED: Warfarin TAB(*) 4 MG PO ONE (17:00)
[2017-09-16] MEDS: clonazePAM TAB(*) 0.5 MG PO PRN (17:38)
[2017-09-16] MEDS ORDERED: clonazePAM TAB(*) 0.5 MG PO ONE (18:00)
[2017-09-16] MEDS: Zolpidem TAB* 10 MG PO PRN (22:01)
[2017-09-17] MEDS: Cyclobenzaprine TAB* 10 MG PO PRN (05:31)
[2017-09-17] MEDS: Levothyroxine TAB* 88 MCG TAB PO SCH (05:32)
[2017-09-17 05:52] LABS: Hematocrit 29 % (35-47); Mean Platelet Volume 6.8 um3 (7.4-10.4); Platelet Count 278 10^3/ul (150-450)
[2017-09-17 05:59] LABS: INR 3.32 (0.77-1.02)
[2017-09-17] MEDS: Omeprazole CAP* 20 MG PO SCH (08:00)
[2017-09-17] MEDS: oxyCODONE/Acetamin 5/325 MG* TAB PO PRN (08:00)
[2017-09-17] MEDS: Docusate CAP* 100 MG PO SCH ×2 (08:00→08:02)
[2017-09-17] MEDS: Losartan TAB* 25 MG PO SCH (08:00)
[2017-09-17] MEDS: Magnesium Hydroxide LIQ* 30 ML UDC PO SCH (08:02)
--- NOTE | 2017-09-17 08:47 | PN ---
Subjective Date of Service: 09/17/17 Interval History: Patient seen and examined. No acute events noted. Patient still with some weakness and difficulty ambulating. Had transfusion last night with no reaction. OOB to chair, feeling well. Denies SOB, no chest pain, no headache, no fever or chills. Objective Active Medications: Acetaminophen (Tylenol Tab*) 650 mg PO Q4H PRN PRN Reason: PAIN OR TEMPERATURE Last Admin: 09/16/17 16:54 Dose: 650 mg Bisacodyl (Dulcolax Supp*) 10 mg [place] DAILY PRN PRN Reason: constipation Clonazepam (Klonopin Tab(*)) 0.5 mg PO ONCE PRN PRN Reason: ANXIETY Last Admin: 09/16/17 17:38 Dose: 0.5 mg Cyclobenzaprine HCl (Flexeril Tab*) 10 mg PO TID PRN PRN Reason: SPASMS Last Admin: 09/17/17 05:31 Dose: 10 mg Diltiazem HCl (Cardizem Cd Cap*) 180 mg PO QPM [facility] Last Admin: 09/16/17 16:55 Dose: 180 mg Diphenhydramine HCl (Benadryl Iv*) 12.5 mg IV Q6H PRN PRN Reason: PRURITIS Docusate Sodium (Colace Cap*) 100 mg PO BID [facility] Last Admin: 09/17/17 08:02 Dose: Not Given Hydromorphone HCl (Dilaudid Tab*) 2 mg PO Q6H PRN PRN Reason: PAIN Lactated Ringer's (Lactated Ringers 1000 Ml Bag*) 1,000 mls @ 100 mls/hr IV PER RATE [facility] Last Admin: 09/15/17 06:55 Dose: 100 mls/hr Lactulose (Lactulose*) 30 ml PO Q6H PRN PRN Reason: constipation Levothyroxine Sodium (Synthroid Tab*) 88 mcg PO 0600 [facility] Last Admin: 09/17/17 05:32 Dose: 88 mcg Losartan Potassium (Cozaar Tab*) 50 mg PO BID [facility] Last Admin: 09/17/17 08:00 Dose: 50 mg Magnesium Hydroxide (Milk Of Magnesia Liq*) 30 ml PO BID [facility] Last Admin: 09/17/17 08:02 Dose: Not Given Magnesium Hydroxide (Milk Of Magnesia Liq*) 30 ml PO Q6H PRN PRN Reason: constipation Morphine Sulfate (Morphine Vial*) 2 mg IV Q2H PRN PRN Reason: PAIN Omeprazole (Prilosec Cap*) 20 mg PO QAM [facility]EL[facility] Last Admin: 09/17/17 08:00 Dose: 20 mg Ondansetron HCl (Zofran Tab*) 4 mg PO Q6H PRN PRN Reason: NAUSEA Ondansetron HCl (Zofran 40 Mg Vial*) 4 mg IV Q6H PRN PRN Reason: nausea Last Admin: 09/15/17 10:08 Dose: 4 mg Oxycodone HCl (Roxycodone Tab*) 10 mg PO Q4H PRN PRN Reason: SEVERE PAIN Last Admin: 09/15/17 09:00 Dose: 10 mg Oxycodone/Acetaminophen (Percocet 5/325 Tab*) 2 tab PO Q4H PRN PRN Reason: PAIN Last Admin: 09/17/17 00:01 Dose: 2 tab Oxycodone/Acetaminophen (Percocet 5/325 Tab*) 1 tab PO Q4H PRN PRN Reason: PAIN Last Admin: 09/17/17 08:00 Dose: 1 tab Polyethylene Glycol/Electrolytes (Miralax*) 17 gm PO DAILY PRN PRN Reason: Constipation Tramadol HCl (Ultram*) 50 mg PO Q6H PRN PRN Reason: PAIN Last Admin: 09/16/17 02:27 Dose: 50 mg Zolpidem Tartrate (Ambien Tab*) 10 mg PO BEDTIME PRN PRN Reason: SLEEP Last Admin: 09/16/17 22:01 Dose: 10 mg Vital Signs - 8 hr 09/17/17 09/17/17 09/17/17 02:35 04:16 04:18 Temperature 97.4 F Pulse Rate 71 Respiratory 20 18 Rate Blood Pressure 124/48 (mmHg) O2 Sat by Pulse 89 94 Oximetry 09/17/17 09/17/17 09/17/17 05:31 07:21 08:00 Temperature 98.2 F Pulse Rate 85 Respiratory 16 16 18 Rate Blood Pressure 152/58 (mmHg) O2 Sat by Pulse 97 Oximetry Oxygen Devices in Use Now: None Appearance: Alert, NAD Eyes: No Scleral Icterus, PERRLA Ears/Nose/Mouth/Throat: NL Teeth, Lips, Gums, Mucous Membranes Moist Neck: NL Appearance and Movements; NL JVP, Trachea Midline Respiratory: Symmetrical Chest Expansion and Respiratory Effort, Clear to Auscultation Cardiovascular: NL Sounds; No Murmurs; No JVD, No Edema Abdominal: NL Sounds; No Tenderness; No Distention, No Hepatosplenomegaly Extremities: No Edema, No Clubbing, Cyanosis Skin: No Rash or Ulcers Neurological: Alert and Oriented x 3, NL Sensation Nutrition: Taking PO's Result Diagrams: 09/17/17 05:18 09/15/17 06:22 Assess/Plan/Problems-Billing Assessment: This is an 82 year old female with hx of HTN, CKD, anxiety, OA, hypothyroidism and chronic anemia that presented for elective RTKA, with acute on chronic post- op anemia. - Patient Problems (1) Status post total knee replacement, right Code(s): Z96.651 - PRESENCE OF RIGHT ARTIFICIAL KNEE JOINT SNOMED Code(s): 8356121206771 Comment: - POD3, POC as per ortho - Pain control, bowel regimen, anti-emetics, OOB with PT/OT - DVT prophy with lovenox/coumadin bridge (2) CKD (chronic kidney disease) stage 3, GFR 30-59 ml/min Code(s): N18.3 - CHRONIC KIDNEY DISEASE, STAGE 3 (MODERATE) SNOMED Code(s): 675047007 Comment: - Creatinine at baseline 1.23 - follow renal function (3) Chronic disease anemia Code(s): D63.8 - ANEMIA IN OTHER CHRONIC DISEASES CLASSIFIED ELSEWHERE SNOMED Code(s): 841351662 Comment: - 2/2 CKD - s/p 1 unit PRBCs 09/16 for Hgb 7.5 and persistent weakness - H&H 9.029 today (4) Hypothyroid Code(s): E03.9 - HYPOTHYROIDISM, UNSPECIFIED SNOMED Code(s): 24905853 Comment: - Continue synthroid daily (5) Hypertension Code(s): I10 - ESSENTIAL (PRIMARY) HYPERTENSION SNOMED Code(s): 91035179 Comment: - Stable on losartan and diltiazem (6) Full code status Code(s): Z78.9 - OTHER SPECIFIED HEALTH STATUS SNOMED Code(s): 951744279 Status and Disposition: Dispo per orthopedics. Medically optimized for DC to [facility] today.
--- NOTE | 2017-09-17 08:52 | PN ---
Subjective Date of Service: 09/16/17 Interval History: LATE ENTRY FOR PATIENT EVAL/EXAM 09/16/2017 Patient seen and examined. Having trouble in PT and was having weakness and knee buckling. Also some confusion and hypotension. Appears tired and states she has no pain unless she's moving. No further complaints. Objective Active Medications: Acetaminophen (Tylenol Tab*) 650 mg PO Q4H PRN PRN Reason: PAIN OR TEMPERATURE Last Admin: 09/16/17 16:54 Dose: 650 mg Bisacodyl (Dulcolax Supp*) 10 mg [place] DAILY PRN PRN Reason: constipation Clonazepam (Klonopin Tab(*)) 0.5 mg PO ONCE PRN PRN Reason: ANXIETY Last Admin: 09/16/17 17:38 Dose: 0.5 mg Cyclobenzaprine HCl (Flexeril Tab*) 10 mg PO TID PRN PRN Reason: SPASMS Last Admin: 09/17/17 05:31 Dose: 10 mg Diltiazem HCl (Cardizem Cd Cap*) 180 mg PO QPM [facility] Last Admin: 09/16/17 16:55 Dose: 180 mg Diphenhydramine HCl (Benadryl Iv*) 12.5 mg IV Q6H PRN PRN Reason: PRURITIS Docusate Sodium (Colace Cap*) 100 mg PO BID [facility] Last Admin: 09/17/17 08:02 Dose: Not Given Hydromorphone HCl (Dilaudid Tab*) 2 mg PO Q6H PRN PRN Reason: PAIN Lactated Ringer's (Lactated Ringers 1000 Ml Bag*) 1,000 mls @ 100 mls/hr IV PER RATE [facility] Last Admin: 09/15/17 06:55 Dose: 100 mls/hr Lactulose (Lactulose*) 30 ml PO Q6H PRN PRN Reason: constipation Levothyroxine Sodium (Synthroid Tab*) 88 mcg PO 0600 [facility] Last Admin: 09/17/17 05:32 Dose: 88 mcg Losartan Potassium (Cozaar Tab*) 50 mg PO BID [facility] Last Admin: 09/17/17 08:00 Dose: 50 mg Magnesium Hydroxide (Milk Of Magnesia Liq*) 30 ml PO BID [facility] Last Admin: 09/17/17 08:02 Dose: Not Given Magnesium Hydroxide (Milk Of Magnesia Liq*) 30 ml PO Q6H PRN PRN Reason: constipation Morphine Sulfate (Morphine Vial*) 2 mg IV Q2H PRN PRN Reason: PAIN Omeprazole (Prilosec Cap*) 20 mg PO QAM [facility] Last Admin: 09/17/17 08:00 Dose: 20 mg Ondansetron HCl (Zofran Tab*) 4 mg PO Q6H PRN PRN Reason: NAUSEA Ondansetron HCl (Zofran 40 Mg Vial*) 4 mg IV Q6H PRN PRN Reason: nausea Last Admin: 09/15/17 10:08 Dose: 4 mg Oxycodone HCl (Roxycodone Tab*) 10 mg PO Q4H PRN PRN Reason: SEVERE PAIN Last Admin: 09/15/17 09:00 Dose: 10 mg Oxycodone/Acetaminophen (Percocet 5/325 Tab*) 2 tab PO Q4H PRN PRN Reason: PAIN Last Admin: 09/17/17 00:01 Dose: 2 tab Oxycodone/Acetaminophen (Percocet 5/325 Tab*) 1 tab PO Q4H PRN PRN Reason: PAIN Last Admin: 09/17/17 08:00 Dose: 1 tab Polyethylene Glycol/Electrolytes (Miralax*) 17 gm PO DAILY PRN PRN Reason: Constipation Tramadol HCl (Ultram*) 50 mg PO Q6H PRN PRN Reason: PAIN Last Admin: 09/16/17 02:27 Dose: 50 mg Zolpidem Tartrate (Ambien Tab*) 10 mg PO BEDTIME PRN PRN Reason: SLEEP Last Admin: 09/16/17 22:01 Dose: 10 mg Vital Signs - 8 hr 09/17/17 09/17/17 09/17/17 02:35 04:16 04:18 Temperature 97.4 F Pulse Rate 71 Respiratory 20 18 Rate Blood Pressure 124/48 (mmHg) O2 Sat by Pulse 89 94 Oximetry Oxygen Devices in Use Now: None Appearance: Alert, tired, NAD Eyes: No Scleral Icterus, PERRLA Ears/Nose/Mouth/Throat: NL Teeth, Lips, Gums, Mucous Membranes Moist Neck: NL Appearance and Movements; NL JVP, Trachea Midline Respiratory: Symmetrical Chest Expansion and Respiratory Effort, Clear to Auscultation Cardiovascular: NL Sounds; No Murmurs; No JVD, RRR Abdominal: NL Sounds; No Tenderness; No Distention Extremities: No Edema, No Clubbing, Cyanosis Skin: No Rash or Ulcers Neurological: Alert and Oriented x 3, NL Sensation Nutrition: Taking PO's Result Diagrams: 09/17/17 05:18 09/15/17 06:22 Assess/Plan/Problems-Billing Assessment: This is an 82 year old female with hx of HTN, CKD, anxiety, OA, hypothyroidism and chronic anemia that presented for elective RTKA, now with acute post- operative anemia. - Patient Problems (1) Status post total knee replacement, right Code(s): Z96.651 - PRESENCE OF RIGHT ARTIFICIAL KNEE JOINT SNOMED Code(s): 9586526800747 Comment: - POD2, POC as per ortho - Pain control, bowel regimen, anti-emetics, OOB with PT/OT - DVT prophy with lovenox/coumadin bridge (2) CKD (chronic kidney disease) stage 3, GFR 30-59 ml/min Code(s): N18.3 - CHRONIC KIDNEY DISEASE, STAGE 3 (MODERATE) SNOMED Code(s): 359823078 Comment: - Creatinine at baseline 1.23 - follow renal function (3) Chronic disease anemia Code(s): D63.8 - ANEMIA IN OTHER CHRONIC DISEASES CLASSIFIED ELSEWHERE SNOMED Code(s): 980272174 Comment: - 2/2 CKD with drop in HgB to 7.5 today - Recommend transfuse 1 unit PRBCs, will discuss with ortho team (4) Hypothyroid Code(s): E03.9 - HYPOTHYROIDISM, UNSPECIFIED SNOMED Code(s): 68134926 Comment: - Continue synthroid daily (5) Hypertension Code(s): I10 - ESSENTIAL (PRIMARY) HYPERTENSION SNOMED Code(s): 20152551 Comment: - Stable on losartan and diltiazem (6) Full code status Code(s): Z78.9 - OTHER SPECIFIED HEALTH STATUS SNOMED Code(s): 462953597 Status and Disposition: Remain inpatient, monitor H&H.
--- NOTE | 2017-09-17 11:52 | PN ---
Progress Note - Progress Note Date of Service: 09/17/17 SOAP: Subjective: 82 y/o female s/p R TKA by Dr. Garza 09/15/2017. Patient overall feeling well, in room with patient, c//o fatigue. pain controlled. VSS, afebrile overnight. Objective: General- Well appearing, NAD, AO, sitting in chair comfortably MSK- RLE- DF/PF = b/l, PT 2+, negative homans sign, dressing removed, incision d /c/i, no erythema, minimal edema, redressed well. Vital Signs Temp 98.2 F 09/17/17 07:21 Pulse 85 09/17/17 07:21 Resp 16 09/17/17 09:58 BP 152/58 09/17/17 07:21 Pulse Ox 97 09/17/17 07:21 Intake & Output 09/16/17 09/17/17 09/17/17 18:59 06:59 18:59 Intake Total 810 1309 100 Output Total 450 1300 200 Balance 360 9 -100 Intake: Oral 810 1000 100 Packed Cells 309 Output: Urine 450 1300 200 Other: # Bowel Movements 0 Assessment: Stable 82 y/o female s/p R TKA by Dr. Garza 09/15/2017. Plan: - DVT prophylaxis- Coumadin, INR theraputic, to be managed by [facility] team - Continue PT/ OT - Follow up with Dr. Garza within 10-14 days post-op for suture removal or call ortho team for removal by 07/29 - H&H - stable, transfused 1 unit 09/16, continue to follow at [facility] - post-op IV ABX - Completed. - D/C today to [facility] Acetaminophen (Tylenol Tab*) 650 mg PO Q4H PRN PRN Reason: PAIN OR TEMPERATURE Last Admin: 09/16/17 16:54 Dose: 650 mg Bisacodyl (Dulcolax Supp*) 10 mg [place] DAILY PRN PRN Reason: constipation Clonazepam (Klonopin Tab(*)) 0.5 mg PO ONCE PRN PRN Reason: ANXIETY Last Admin: 09/16/17 17:38 Dose: 0.5 mg Cyclobenzaprine HCl (Flexeril Tab*) 10 mg PO TID PRN PRN Reason: SPASMS Last Admin: 09/17/17 05:31 Dose: 10 mg Diltiazem HCl (Cardizem Cd Cap*) 180 mg PO QPM [facility] Last Admin: 09/16/17 16:55 Dose: 180 mg Diphenhydramine HCl (Benadryl Iv*) 12.5 mg IV Q6H PRN PRN Reason: PRURITIS Docusate Sodium (Colace Cap*) 100 mg PO BID [facility] Last Admin: 09/17/17 08:02 Dose: Not Given Hydromorphone HCl (Dilaudid Tab*) 2 mg PO Q6H PRN PRN Reason: PAIN Lactated Ringer's (Lactated Ringers 1000 Ml Bag*) 1,000 mls @ 100 mls/hr IV PER RATE [facility] Last Admin: 09/15/17 06:55 Dose: 100 mls/hr Lactulose (Lactulose*) 30 ml PO Q6H PRN PRN Reason: constipation Levothyroxine Sodium (Synthroid Tab*) 88 mcg PO 0600 [facility] Last Admin: 09/17/17 05:32 Dose: 88 mcg Losartan Potassium (Cozaar Tab*) 50 mg PO BID [facility] Last Admin: 09/17/17 08:00 Dose: 50 mg Magnesium Hydroxide (Milk Of Magnesia Liq*) 30 ml PO BID [facility] Last Admin: 09/17/17 08:02 Dose: Not Given Magnesium Hydroxide (Milk Of Magnesia Liq*) 30 ml PO Q6H PRN PRN Reason: constipation Morphine Sulfate (Morphine Vial*) 2 mg IV Q2H PRN PRN Reason: PAIN Omeprazole (Prilosec Cap*) 20 mg PO QAM [facility] Last Admin: 09/17/17 08:00 Dose: 20 mg Ondansetron HCl (Zofran Tab*) 4 mg PO Q6H PRN PRN Reason: NAUSEA Ondansetron HCl (Zofran 40 Mg Vial*) 4 mg IV Q6H PRN PRN Reason: nausea Last Admin: 09/15/17 10:08 Dose: 4 mg Oxycodone HCl (Roxycodone Tab*) 10 mg PO Q4H PRN PRN Reason: SEVERE PAIN Last Admin: 09/15/17 09:00 Dose: 10 mg Oxycodone/Acetaminophen (Percocet 5/325 Tab*) 2 tab PO Q4H PRN PRN Reason: PAIN Last Admin: 09/17/17 00:01 Dose: 2 tab Oxycodone/Acetaminophen (Percocet 5/325 Tab*) 1 tab PO Q4H PRN PRN Reason: PAIN Last Admin: 09/17/17 08:00 Dose: 1 tab Polyethylene Glycol/Electrolytes (Miralax*) 17 gm PO DAILY PRN PRN Reason: Constipation Tramadol HCl (Ultram*) 50 mg PO Q6H PRN PRN Reason: PAIN Last Admin: 09/16/17 02:27 Dose: 50 mg Zolpidem Tartrate (Ambien Tab*) 10 mg PO BEDTIME PRN PRN Reason: SLEEP Last Admin: 09/16/17 22:01 Dose: 10 mg
[2017-09-17 11:55] VITALS: BP 135/42
== END 2017-09-17 11:55 | DRG 470 ==
LOC: AA 12:21 → SSU 19:48
PROVIDERS: ADMIT Orthopaedic Surgery Adult Reconstructive Orthopaedic Surgery; ATTEND Orthopaedic Surgery Adult Reconstructive Orthopaedic Surgery
PROC: 0SRC069 Replacement of Right Knee Joint with Oxidized Zirconium on Polyethylene Synthetic Substitute, Cemented, Open Approach (ICD-10-PCS; 2017-09-14)
PROC: 30233N1 Transfusion of Nonautologous Red Blood Cells into Peripheral Vein, Percutaneous Approach (ICD-10-PCS; principal; 2017-09-14 15:00)
DX: M17.11 Unilateral primary osteoarthritis, right knee (principal); D62 Acute posthemorrhagic anemia; I12.9 Hypertensive chronic kidney disease with stage 1 through stage 4 chronic kidney disease, or unspecified chronic kidney disease; K21.9 Gastro-esophageal reflux disease without esophagitis; E89.0 Postprocedural hypothyroidism; N18.3 Chronic kidney disease, stage 3 (moderate); J31.0 Chronic rhinitis; M35.3 Polymyalgia rheumatica; E66.9 Obesity, unspecified; M81.0 Age-related osteoporosis without current pathological fracture; E78.2 Mixed hyperlipidemia; R41.0 Disorientation, unspecified; I95.9 Hypotension, unspecified; F41.9 Anxiety disorder, unspecified; D63.1 Anemia in chronic kidney disease; J44.9 Chronic obstructive pulmonary disease, unspecified; M21.061 Valgus deformity, not elsewhere classified, right knee; M25.761 Osteophyte, right knee; Z85.820 Personal history of malignant melanoma of skin; Z90.49 Acquired absence of other specified parts of digestive tract; Z88.8 Allergy status to other drugs, medicaments and biological substances; Z88.5 Allergy status to narcotic agent; Z88.1 Allergy status to other antibiotic agents; Z82.49 Family history of ischemic heart disease and other diseases of the circulatory system; Z82.3 Family history of stroke; Z84.1 Family history of disorders of kidney and ureter; Z72.89 Other problems related to lifestyle; Z97.2 Presence of dental prosthetic device (complete) (partial); Z68.29 Body mass index [BMI] 29.0-29.9, adult; Z98.42 Cataract extraction status, left eye; Z98.41 Cataract extraction status, right eye; Z88.6 Allergy status to analgesic agent
CPT/HCPCS: 36415; 80048; 85014; 85018; 85049; 85610; 86850; 86900; 86901; 86922; 88305; 88311; A9270-GY; C1776; G8978-GP-CI; G8987-GO-CK; G8988-GO-CI; G8989-GO-CI; J0461; J0690; J1100; J1170; J1650; J2250; J2704; J3010; P9040

== ENCOUNTER 2017-09-17 08:32 | Inpatient (IN) | payer MEDICARE ==
[2017-09-17] MEDS ORDERED: Senna TAB PO PRN (12:15)
[2017-09-17] MEDS ORDERED: Al Hydrox/Mg Hydrox/Simet LIQ* 30 ML UDC PO PRN (12:15)
[2017-09-17] MEDS ORDERED: Magnesium Hydroxide LIQ* 30 ML UDC PO PRN (12:15)
[2017-09-17] MEDS ORDERED: oxyCODONE/Acetamin 5/325 MG* TAB PO PRN ×2 (13:12→13:13)
[2017-09-17 13:15] LABS: EGFR Non-African American 34.2 (>60)
[2017-09-17] MEDS: Cetirizine* 10 MG TAB PO SCH (14:38)
--- NOTE | 2017-09-17 15:58 | HP ---
CC: Dr. Sanchez; Dr. Garza REHABILITATION ADMISSION NOTE: DATE OF ADMISSION: 09/17/17 PRIMARY CARE PROVIDER: Dr. Sanchez. ORTHOPEDIC SURGEON: Dr. Garza. REASON FOR ADMISSION: Right total knee replacement secondary to osteoarthritis. HISTORY OF PRESENT ILLNESS: This is an 82-year-old woman who was admitted on by Dr. Garza for elective right total knee replacement secondary to end- stage osteoarthritis of the knee. Postoperatively, she has weightbearing as tolerated precautions. She was started on Lovenox and Coumadin for DVT prophylaxis. She did well on postop day 1 with mobility, but then yesterday not as well and at times requiring 2 max assist for transfers. Lovenox was stopped on 09/16 when her INR was 1.82. Today, it is 3.32. She has been having some difficulty controlling pain and has been noted to be confused. She has experienced acute postoperative anemia. Yesterday, her hemoglobin was 7.5 and hematocrit 24. She received 1 unit of packed red blood cells. Today, the hemoglobin is 9 and hematocrit 29. Prior to admission, she was independent with all mobility and ADLs. With occupational therapy, she required minimum amount of assistance for lower body dressing, bathing, and toileting. With physical therapy at times yesterday and today, she required max assist of 2 for transfers and her knee was buckling. Even when she was doing better, she was noted to have some loss of balance using a rolling walker for short distance ambulating. PAST MEDICAL HISTORY: 1. Osteoarthritis, see history of present illness. 2. History of melanoma, status post resection. 3. Hypertension. 4. Hyperlipidemia. 5. Chronic kidney disease. 7. Anemia of chronic disease. 8. Hypothyroidism. 9. GERD. 10. History of cardiac catheterization. 11. Status post cholecystectomy. 12. Status post thyroidectomy for nodule. 13. Status post right carpal tunnel release. 14. Status post cataract surgery. 15. Status post laminectomy for lumbar stenosis. MEDICATIONS: 1. Levothyroxine 88 mcg q. day. 2. Losartan 50 mg b.i.d. This has been substituted with Cozaar 50 mg b.i.d. 3. Diltiazem CD 180 mg q.p.m. 4. Clonazepam 0.5 mg b.i.d. p.r.n. 5. Ambien 10 mg q.h.s. p.r.n. 6. Cetirizine 10 mg q. day p.r.n. This has been substituted with Claritin 10 mg q. day. 7. Omeprazole 20 mg q. day. 8. Tylenol 650 mg q.4 hours p.r.n. pain. 9. Betamethasone 0.1% topical ointment b.i.d. to her lower back and buttocks. 10. Fluticasone nasal spray 2 sprays each nostril q. day. 11. Coumadin, she is on for DVT prophylaxis. 12. Flexeril will be discontinued. 13. Colace 100 mg b.i.d. 14. Zofran p.r.n. nausea. 15. Percocet 1 to 2 tablets q.4 hours p.r.n. pain. ALLERGIES: AMOXICILLIN, LIPITOR, AZITHROMYCIN, CLAVULANIC ACID, LISINOPRIL, HYDROCODONE, NIASPAN, BETA-BLOCKERS, and PRAVASTATIN. FAMILY HISTORY: Significant for coronary artery disease, hypertension, stroke, and chronic kidney disease. SOCIAL HISTORY: She lives in [place] with her . She has 5 kids in the area that are grown. No smoking. Occasional alcohol. She has 4 steps into her home, which is then 1 level. 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 She enjoys crocheting, camping , and gardening. Her , Aram Bolden, is her health care proxy, she cannot make decisions for herself. REVIEW OF SYSTEMS: See history of present illness and past medical history. She says her sinuses and allergies are acting up right now. She has not received her meds since being in the hospital. She is tired, she believes, from pain medications. The remainder of the system review was completed. No significant findings. PHYSICAL EXAMINATION GENERAL: Well developed, well nourished, appearing stated age. Mental status: In no acute distress. She is easily arousable to being alert, oriented, and appropriate. She did think it is September 16 instead of September 17, is otherwise fully oriented. VITAL SIGNS: Temperature 98.2, heart rate 85, respirations 16, oxygenation 97% on room air, blood pressure 152/58. HEENT: Normocephalic, atraumatic. Oropharynx is clear. Moist mucous membranes. LUNGS: Clear to auscultation bilaterally. HEART: Regular rate and rhythm. ABDOMEN: Active bowel sounds. Soft, nontender, nondistended. EXTREMITIES: No clubbing, cyanosis, or edema. Her right knee has dressing intact. She has 2+ peripheral pulses. MUSCULOSKELETAL: She has functional range of motion of all of her major joints with limited testing of the right hip and knee secondary to her recent knee replacement. NEUROLOGIC: Cranial nerves II through XII are intact. Upper and lower extremity motor 5/5 bilaterally except there is pain that limit testing of her right hip and knee. Sensation is intact in all 4 extremities. LABORATORY DATA: Today, her hemoglobin is 9, hematocrit 29. INR 3.32, up from 1.82 yesterday. On 09/15, her potassium was 5.2 and creatinine 1.23. The creatinine is within her usual range. IMPRESSION: An 82-year-old woman status post elective right total knee replacement with acute postoperative anemia, who will be admitted to [facility], so she can return to living independently. PLAN: 1. Right total knee replacement. Continue with weightbearing as tolerated precautions. We will have to be judicious with her pain medications so that she is not too groggy or confused. She will follow up with Dr. Garza for suture removal by 09/28 if she has been discharged by that point. 2. DVT prophylaxis. Coumadin will be on hold tonight. INR daily to determine when to restart it at a lower dosage. 3. Chronic kidney disease with hyperkalemia. Recheck her P33 today. 4. Acute postoperative anemia on anemia of chronic disease. Recheck CBC in the morning for stability. 5. Hypertension. Continue with her current medications. 6. Impaired mobility. She will be seen by Physical Therapy for bed mobility, transfer, gait, and stair training using a rolling walker. 7. Impaired self-care. She will be seen by Occupational Therapy for ADL training and equipment evaluation. 8. Advance directives. This was discussed with her. She does not want to be resuscitated. She saw what happened when her [id number] was resuscitated and he was never the same. She appoints her as health care proxy if she cannot make decisions herself. 9. Estimated length of stay is 5 to 7 days and return to home with support. [id number]/[facility] #: [id number] HALLIE
[2017-09-17] MEDS: Acetaminophen TAB* 325 MG PO PRN (20:11)
[2017-09-17] MEDS: Losartan TAB* 25 MG PO SCH (20:11)
[2017-09-17] MEDS: Docusate CAP* 100 MG PO SCH (20:11)
[2017-09-17] MEDS: Diltiazem CD CAP* 180 MG PO SCH (20:11)
[2017-09-17] MEDS: clonazePAM TAB(*) 0.5 MG PO PRN (20:12)
[2017-09-17] MEDS: BETAMETHASONE VAL 0.1% TOPICAL SCH (20:13)
[2017-09-18] MEDS: Omeprazole CAP* 20 MG PO SCH (05:48)
[2017-09-18] MEDS: Acetaminophen TAB* 325 MG PO PRN ×4 (05:49→22:44)
[2017-09-18] MEDS: Levothyroxine TAB* 88 MCG TAB PO SCH (05:49)
[2017-09-18 06:31] LABS: Hematocrit 28 % (35-47); Hemoglobin 9.1 g/dl (12.0-16.0); Mean Corpuscular HGB Conc 32 g/dl (31-36); Mean Corpuscular Hemoglobin 25 pg (27-31); Mean Corpuscular Volume 78 fL (80-97); Mean Platelet Volume 6.8 um3 (7.4-10.4); Platelet Count 275 10^3/ul (150-450); Red Blood Count 3.62 10^6/ul (4.00-5.40); Red Cell Distribution Width 20 % (10.5-15)
[2017-09-18 06:37] LABS: INR 3.09 (0.77-1.02)
[2017-09-18 06:50] LABS: ABS Basophils 0.1 10^3/ul (0-0.2); ABS Neutrophils 5.6 10^3/ul (1.5-7.7); Monocytes % 11 % (0-7)
[2017-09-18] MEDS: Losartan TAB* 25 MG PO SCH ×2 (08:15→20:08)
[2017-09-18] MEDS: Fluticasone NASAL SPRAY 50MCG* 16 gm SPRAY BTL BOTH NARES SCH (08:15)
[2017-09-18] MEDS: clonazePAM TAB(*) 0.5 MG PO PRN (08:15)
[2017-09-18] MEDS: Docusate CAP* 100 MG PO SCH ×2 (08:16→20:08)
[2017-09-18] MEDS: Cetirizine* 10 MG TAB PO SCH (08:16)
[2017-09-18] MEDS: BETAMETHASONE VAL 0.1% TOPICAL SCH ×2 (08:20→20:20)
--- NOTE | 2017-09-18 10:01 | RAD ---
HISTORY: fever COMPARISONS: September 01, 2017 VIEWS: 4: Frontal dual-energy and lateral views of the chest. FINDINGS: CARDIOMEDIASTINAL SILHOUETTE: The cardiomediastinal silhouette is normal. RULA: The rula are normal. PLEURA: The costophrenic angles are sharp. No pleural abnormalities are noted. LUNG PARENCHYMA: There is hyperinflation with flattening of the diaphragm and expansion of the AP diameter of the chest. ABDOMEN: The upper abdomen is clear. There is no subphrenic gas. BONES AND SOFT TISSUES: No bone or soft tissue abnormalities are noted. OTHER: None. IMPRESSION: HYPERINFLATION, CONSISTENT WITH COPD. NO ACTIVE CARDIOPULMONARY DISEASE.
--- NOTE | 2017-09-18 10:52 | PN ---
Progress Note Date of Service: 09/18/17 Note: LATONIA SAGASTUME was visited. Nursing and therapy notes read and reviewed. She is less tired today. No chest pain, shortness of breath or abdominal pain. Her BP was elevated this morning, but she said she was frustrated she could not find her call [place]. Her sinus issues are better. Denies any cough. Current Medications: Active Medications Generic Name Dose Route Start Last Admin Trade Name Freq PRN Reason Stop Dose Admin Acetaminophen 650 mg 09/17/17 12:15 09/18/17 05:49 Tylenol Tab* PO 650 mg Q4H PRN Administration FEVER > 101 Al Hydrox/Mg Hydrox/Simethicone 30 ml 09/17/17 12:15 Maalox Plus* PO Q6H PRN INDIGESTION Betamethasone Valerate 1 applic 09/17/17 21:00 09/18/17 08:20 Valisone 0.1% Cm(Nf) TOPICAL 1 applic BID SHEELA Administration Protocol Cetirizine HCl 10 mg 09/17/17 14:00 09/18/17 08:16 Zyrtec* PO 10 mg DAILY SHEELA Administration Clonazepam 0.5 mg 09/17/17 13:07 09/18/17 08:15 Klonopin Tab(*) PO 0.5 mg BID PRN Administration ANXIETY Diltiazem HCl 180 mg 09/17/17 21:00 09/17/17 20:11 Cardizem Cd Cap* PO 180 mg BEDTIME SHEELA Administration Docusate Sodium 100 mg 09/17/17 21:00 09/18/17 08:16 Colace Cap* PO 100 mg BID SHEELA Administration Fluticasone Propionate 2 spray 09/18/17 09:00 09/18/17 08:15 Flonase Nasal [place] 50mcg* BOTH NARES Not Given DAILY SHEELA Levothyroxine Sodium 88 mcg 09/18/17 06:00 09/18/17 05:49 Synthroid Tab* PO 88 mcg DAILY@0600 SHEELA Administration Losartan Potassium 50 mg 09/17/17 21:00 09/18/17 08:15 Cozaar Tab* PO 50 mg BID SHEELA Administration Magnesium Hydroxide 30 ml 09/17/17 12:15 Milk Of Magnesia Liq* PO Q6H PRN CONSTIPATION Omeprazole 20 mg 09/18/17 06:00 09/18/17 05:48 Prilosec Cap* PO 20 mg DAILY@0600 SHEELA Administration Oxycodone/Acetaminophen 1 tab 09/17/17 13:12 Percocet 5/325 Tab* PO Q4H PRN PAIN Oxycodone/Acetaminophen 2 tab 09/17/17 13:13 09/17/17 14:41 Percocet 5/325 Tab* PO 2 tab Q4H PRN Administration PAIN Senna 2 tab 09/17/17 12:15 Senokot Tab* PO BEDTIME PRN CONSTIPATION Zolpidem Tartrate 10 mg 09/17/17 13:07 Ambien Tab* PO BEDTIME PRN INSOMNIA Vital Signs: Vital Signs Temp Pulse Resp BP Pulse Ox 100.3 F 78 16 165/70 98 09/18/17 05:48 09/18/17 08:17 09/18/17 08:15 09/18/17 08:17 09/18/17 08:06 Lab Results: Laboratory Results - last 24 hr 09/17/17 09/18/17 09/18/17 12:42 06:08 06:08 WBC 11.0 H RBC 3.62 L Hgb 9.1 L Hct 28 L MCV 78 L MCH 25 L MCHC 32 RDW 20 H Plt Count 275 MPV 6.8 L Neut % (Auto) Not Reportable Lymph % (Auto) Not Reportable [place] % (Auto) Not Reportable Eos % (Auto) Not Reportable Baso % (Auto) Not Reportable Absolute Neuts (auto) Not Reportable Absolute Lymphs (auto) Not Reportable Absolute Monos (auto) Not Reportable Absolute Eos (auto) Not Reportable Absolute Basos (auto) Not Reportable Absolute Nucleated RBC Not Reportable Immature Gran % 1 Neutrophils % 51 Band Neutrophils % 1 Lymphocytes % 29 Monocytes % 11 H Eosinophils % 7 H Basophils % 1 Nucleated RBC % Not Reportable Abs Neuts (Manual) 5.6 Abs Lymphs (Manual) 3.2 Abs Monocytes (Manual) 1.2 H Absolute Eos (Manual) 0.8 H Abs Basophils (Manual) 0.1 Normal RBC Morphology Not Reportable Hypochromasia 1+ INR (Anticoag Therapy) 3.09 H Sodium 136 Potassium 4.5 Chloride 97 L Carbon Dioxide 30 Anion Gap 9 BUN 21 Creatinine 1.46 H Est GFR ( Amer) 44.0 Est GFR (Non-Af Amer) 34.2 BUN/Creatinine Ratio 14.4 Glucose 111 H Calcium 9.4 Total Bilirubin 0.50 AST 19 ALT 10 Alkaline Phosphatase 65 Total Protein 6.9 Albumin 3.6 Globulin 3.3 Albumin/Globulin Ratio 1.1 Exam: GEN: No acute distress. Alert and appropriate. LUNGS: clear to auscultation bilaterally. CV: regular rate and rhythm ABD: + bowel sounds, soft, non-tender, non-distended. EXT: no edema. Dressing c/d/i CXR 09/18/17 showed hyperinflation consistent with copd. No infiltrate. Assessment/Plan: 82yo woman s/p right total knee replacement #Right TKR: f/u with Greg. WBAT. #DVT ppx: restart low dose coumadin tonight. INR in am. #Mild fever: CXR negative 09/18/17. Blood cultures and urinalysis pending. #Mild leukocytosis: Looks like a chronic issue. She thinks this was addressed with her director of professional services, Dr. Castillo, when she stopped spironolactone. I d/w her she should probably see a civil laboratory technician. She has f/u with Dr. Castillo in [place] on . #Chronic kidney disease with anemia: stable. f/u with Dr. Castillo 10/18. #Hypertension: continue same meds. #Advanced directives: DNR. is surrogate decision maker. #Estimated LOS: d/w with team and IPOC. 09/18/17 10:57
--- NOTE | 2017-09-18 11:05 | PMRUTEAM ---
PMRU: Team Meeting Current Status: Nursing: Current Status Skin Deviations [Buttocks] Other Skin Deviations [Right Knee] Incision Skin Deviation Description [ redness Buttocks] Skin Deviation Description [ well-approximated; marlys wrap in place Right Knee] Physical Therapy: Current Status Bed Mobility Assistance Independent Transfer Moblility Assistance Contact Guard Assist to Min Assist x2 Transfer/Bed Mobility Rolling Walker Recommended Devices Ambulation Assistance Contact Guard Assist to Min Assist x2 Ambulation Assistive Devices Rolling Walker Number of Feet Patient 60, 90 Ambulated Stairs Assistance not tested Stairs Recommended Devices One Rail Number of Stairs 4 Occupational Therapy: Current Status Upper Body Dressing Supervision Lower Body Dressing Total Assist,2 Person Assist Bathing Mod Assist Toileting Mod Assist,Max Asst Toilet Transfer Mod Assist Eating Independent Rec Therapy: Current Status Summary of Assessment and Pt. was very open to conversation and engaged Clinical Impression throughout. Pt. identified with many interests and active involvement in them prior to admission. Pt. was open to continued leisure visits. Treatment Goals Pt. will engage in leisure activities while on the unit. Treatment Plan Provide RT services and encourage involvement. Social Work: Current Status Discharge Plan return home with home care svs and family support Potential for Family Training pt's is involved and supportive Anticipated Discharge Home Destination Discharge With VNS and family support Goals: Physical Therapy: Updated Goals Independent bed mobility, transfers and ambulation using rolling walker 150ft. Up/down 4 stairs with 1 rail. Occupational Therapy: Initial Goals Goals to be Completed in (Days 7-10 ) Upper Body Bathing Routine Independent Lower Body Bathing Routine Modified Independent with Upper Body Dressing Routine Independent Lower Body Dressing Routine Modified Independent with Toilet Hygeine and Clothing Modified Independent with Management Routine Toilet Transfer Routine Modified Independent with Step-In Shower Transfer Supervision/Set Up Routine Functional Transfers for ADL Modified Independent with Grooming Routine Independent Feeding Routine Independent Social Work: Goals Discharge Plan return home with home care svs and family support Potential for Family Training pt's is involved and supportive Anticipated Discharge Home Destination Discharge With VNS and family support Care Plan: Adequate hydration. Education on coumadin for DVT prevention. Dietary education while on coumadin. Medication education and self administration. Medicine Note: Length of Stay: [1 week] Anticipated Discharge Destination: Home Tentative Discharge Date: [09/24/17] Discharged to: [home]
[2017-09-18 11:30] LABS: Urine Appearance Clear; Urine Blood Negative (Negative); Urine Color Yellow; Urine Ketones Negative (Negative); Urine Protein Negative (Negative); Urine Red Blood Cell Absent (Absent); Urine Urobilinogen Negative (Negative); Urine White Blood Cell Trace(0-5/hpf) (Absent)
[2017-09-18] MEDS: Warfarin TAB(*) 2 MG PO SCH (16:10)
[2017-09-18] MEDS: Diltiazem CD CAP* 180 MG PO SCH (20:08)
[2017-09-18] MEDS: Zolpidem TAB* 10 MG PO PRN (22:44)
[2017-09-19] MEDS: Acetaminophen TAB* 325 MG PO PRN ×2 (04:17→20:26)
[2017-09-19] MEDS: Levothyroxine TAB* 88 MCG TAB PO SCH (05:30)
[2017-09-19] MEDS: Omeprazole CAP* 20 MG PO SCH (05:30)
[2017-09-19 06:47] LABS: INR 2.79 (0.77-1.02)
[2017-09-19] MEDS: Docusate CAP* 100 MG PO SCH ×2 (09:23→20:26)
[2017-09-19] MEDS: Losartan TAB* 25 MG PO SCH ×2 (09:23→20:27)
[2017-09-19] MEDS: Cetirizine* 10 MG TAB PO SCH (09:23)
[2017-09-19] MEDS: Fluticasone NASAL SPRAY 50MCG* 16 gm SPRAY BTL BOTH NARES SCH (09:25)
[2017-09-19] MEDS: BETAMETHASONE VAL 0.1% TOPICAL SCH ×2 (09:25→20:45)
--- NOTE | 2017-09-19 10:36 | PN ---
Progress Note Date of Service: 09/19/17 Note: LATONIA SAGASTUME was visited. Nursing and therapy notes read and reviewed. No chest pain, shortness of breath or abdominal pain. Last night she felt restricted in a dream and managed to take off her cryocuff and PA and tried to get up. She slid down the side of the bed to the floor. Nursing heard a thud. Patient reoriented. She did not hit her head and today feels no additional pain. She remembers the episode. She now has on a tamper proof alarm. She did not take percocet at bedtime, but took ambien, which she has at home prn. She has not had any issues like this at home with ambien. Current Medications: Active Medications Generic Name Dose Route Start Last Admin Trade Name Freq PRN Reason Stop Dose Admin Acetaminophen 650 mg 09/17/17 12:15 09/19/17 04:17 Tylenol Tab* PO 650 mg Q4H PRN Administration FEVER > 101 Al Hydrox/Mg Hydrox/Simethicone 30 ml 09/17/17 12:15 Maalox Plus* PO Q6H PRN INDIGESTION Betamethasone Valerate 1 applic 09/17/17 21:00 09/19/17 09:25 Valisone 0.1% Cm(Nf) TOPICAL 1 applic BID SHEELA Administration Protocol Cetirizine HCl 10 mg 09/17/17 14:00 09/19/17 09:23 Zyrtec* PO 10 mg DAILY SHEELA Administration Clonazepam 0.5 mg 09/17/17 13:07 09/18/17 08:15 Klonopin Tab(*) PO 0.5 mg BID PRN Administration ANXIETY Diltiazem HCl 180 mg 09/17/17 21:00 09/18/17 20:08 Cardizem Cd Cap* PO 180 mg BEDTIME SHEELA Administration Docusate Sodium 100 mg 09/17/17 21:00 09/19/17 09:23 Colace Cap* PO 100 mg BID SHEELA Administration Fluticasone Propionate 2 spray 09/18/17 09:00 09/19/17 09:25 Flonase Nasal [place] 50mcg* BOTH NARES 2 spray DAILY SHEELA Administration Levothyroxine Sodium 88 mcg 09/18/17 06:00 09/19/17 05:30 Synthroid Tab* PO 88 mcg DAILY@0600 SHEELA Administration Losartan Potassium 50 mg 09/17/17 21:00 09/19/17 09:23 Cozaar Tab* PO 50 mg BID SHEELA Administration Magnesium Hydroxide 30 ml 09/17/17 12:15 Milk Of Ben Liq* PO Q6H PRN CONSTIPATION Omeprazole 20 mg 09/18/17 06:00 09/19/17 05:30 Prilosec Cap* PO 20 mg DAILY@0600 [facility] Administration Oxycodone/Acetaminophen 1 tab 09/17/17 13:12 Percocet 5/325 Tab* PO Q4H PRN PAIN Oxycodone/Acetaminophen 2 tab 09/17/17 13:13 09/17/17 14:41 Percocet 5/325 Tab* PO 2 tab Q4H PRN Administration PAIN Senna 2 tab 09/17/17 12:15 Senokot Tab* PO BEDTIME PRN CONSTIPATION Warfarin Sodium 2 mg 09/18/17 17:00 09/18/17 16:10 Coumadin Tab(*) PO 2 mg DAILY@1700 [facility] Administration Protocol Zolpidem Tartrate 10 mg 09/17/17 13:07 09/18/17 22:44 Ambien Tab* PO 10 mg BEDTIME PRN Administration INSOMNIA Vital Signs: Vital Signs Temp Pulse Resp BP Pulse Ox 98.3 F 70 18 140/52 97 09/19/17 05:18 09/19/17 05:18 09/19/17 07:50 09/19/17 05:18 09/19/17 07:50 Lab Results: Laboratory Results - last 24 hr 09/18/17 09/19/17 11:00 05:38 INR (Anticoag Therapy) 2.79 H Urine Color Yellow Urine Appearance Clear Urine pH 7.0 Ur Specific [place] 1.010 Urine Protein Negative Urine Ketones Negative Urine Blood Negative Urine Nitrate Negative Urine Bilirubin Negative Urine Urobilinogen Negative Ur Leukocyte Esterase 1+ A Urine WBC (Auto) Trace(0-5/hpf) Urine RBC (Auto) Absent Ur Squamous Epith Cells Present A Urine Bacteria Absent Urine Glucose Negative Exam: GEN: No acute distress. Alert and appropriate. LUNGS: clear to auscultation bilaterally. CV: regular rate and rhythm ABD: + bowel sounds, soft, non-tender, non-distended. EXT: no edema. Right knee dressing removed. Sutures are c/d/i. No swelling or erythema. No tenderness on screening msk exam. NEURO: CN II-XII intact. Motor 5/5 bue/ble and normal sensation. Assessment/Plan: 82yo woman s/p right total knee replacement #Right TKR: f/u with Greg. WBAT. #DVT ppx: continue same coumadin tonight. INR in M/W/F. #Mild fever: Resolved. CXR negative 09/18/17. UA just shows 1+ LE and squamous cells. Blood and urine cultures pending. #Mild leukocytosis: Looks like a chronic issue. She thinks this was addressed with her captain assistant, Dr. Castillo, when she stopped spironolactone. I d/w her she should probably see a culture room worker. She has f/u with Dr. Castillo in [place] on . #Chronic kidney disease with anemia: stable. f/u with Dr. Castillo 10/18. #Hypertension: continue same meds. #Advanced directives: DNR. is surrogate decision maker. #Estimated LOS: Anticipate d/c on Wednesday. I d/w pt and who are in agreement. 09/19/17 10:36
[2017-09-19] MEDS: Warfarin TAB(*) 2 MG PO SCH (16:44)
[2017-09-19] MEDS: Diltiazem CD CAP* 180 MG PO SCH (20:26)
[2017-09-20] MEDS: Acetaminophen TAB* 325 MG PO PRN ×4 (00:28→20:55)
[2017-09-20] MEDS: Levothyroxine TAB* 88 MCG TAB PO SCH (04:51)
[2017-09-20] MEDS: Omeprazole CAP* 20 MG PO SCH (04:51)
[2017-09-20 06:05] LABS: INR 2.69 (0.77-1.02)
[2017-09-20] MEDS: Losartan TAB* 25 MG PO SCH ×2 (09:16→20:53)
[2017-09-20] MEDS: BETAMETHASONE VAL 0.1% TOPICAL SCH ×2 (09:16→20:49)
[2017-09-20] MEDS: Cetirizine* 10 MG TAB PO SCH (09:16)
[2017-09-20] MEDS: Docusate CAP* 100 MG PO SCH ×2 (09:16→20:54)
[2017-09-20] MEDS: Fluticasone NASAL SPRAY 50MCG* 16 gm SPRAY BTL BOTH NARES SCH (09:16)
[2017-09-20] MEDS: Warfarin TAB(*) 2 MG PO SCH (16:37)
--- NOTE | 2017-09-20 19:31 | PN ---
Progress Note Date of Service: 09/20/17 Note: LATONIA SAGASTUME was visited. Therapy notes read and reviewed. She is moving better with therapy and will likely go home a little sooner than Wednesday, probably Wednesday. INR ok Current Medications: Active Medications Generic Name Dose Route Start Last Admin Trade Name Freq PRN Reason Stop Dose Admin Acetaminophen 650 mg 09/17/17 12:15 09/20/17 09:35 Tylenol Tab* PO 650 mg Q4H PRN Administration FEVER > 101 Al Hydrox/Mg Hydrox/Simethicone 30 ml 09/17/17 12:15 Maalox Plus* PO Q6H PRN INDIGESTION Betamethasone Valerate 1 applic 09/17/17 21:00 09/20/17 09:16 Valisone 0.1% Cm(Nf) TOPICAL 1 applic BID SHEELA Administration Protocol Cetirizine HCl 10 mg 09/17/17 14:00 09/20/17 09:16 Zyrtec* PO 10 mg DAILY SHEELA Administration Clonazepam 0.5 mg 09/17/17 13:07 09/18/17 08:15 Klonopin Tab(*) PO 0.5 mg BID PRN Administration ANXIETY Diltiazem HCl 180 mg 09/17/17 21:00 09/19/17 20:26 Cardizem Cd Cap* PO 180 mg BEDTIME SHEELA Administration Docusate Sodium 100 mg 09/17/17 21:00 09/20/17 09:16 Colace Cap* PO 100 mg BID SHEELA Administration Fluticasone Propionate 2 spray 09/18/17 09:00 09/20/17 09:16 Flonase Nasal J[place] 50mcg* BOTH NARES 2 spray DAILY SHEELA Administration Levothyroxine Sodium 88 mcg 09/18/17 06:00 09/20/17 04:51 Synthroid Tab* PO 88 mcg DAILY@0600 SHEELA Administration Losartan Potassium 50 mg 09/17/17 21:00 09/20/17 09:16 Cozaar Tab* PO 50 mg BID SHEELA Administration Magnesium Hydroxide 30 ml 09/17/17 12:15 Milk Of Magnesia Liq* PO Q6H PRN CONSTIPATION Omeprazole 20 mg 09/18/17 06:00 09/20/17 04:51 Prilosec Cap* PO 20 mg DAILY@0600 SHEELA Administration Oxycodone/Acetaminophen 1 tab 09/17/17 13:12 Percocet 5/325 Tab* PO Q4H PRN PAIN Oxycodone/Acetaminophen 2 tab 09/17/17 13:13 09/17/17 14:41 Percocet 5/325 Tab* PO 2 tab Q4H PRN Administration PAIN Senna 2 tab 09/17/17 12:15 Senokot Tab* PO BEDTIME PRN CONSTIPATION Warfarin Sodium 2 mg 09/18/17 17:00 09/20/17 16:37 Coumadin Tab(*) PO 2 mg DAILY@1700 SHEELA Administration Protocol Zolpidem Tartrate 10 mg 09/17/17 13:07 09/18/17 22:44 Ambien Tab* PO 10 mg BEDTIME PRN Administration INSOMNIA Vital Signs: Vital Signs Temp Pulse Resp BP Pulse Ox 99.1 F 72 20 141/59 99 09/20/17 15:54 09/20/17 15:54 09/20/17 15:54 09/20/17 15:54 09/20/17 15:54 Lab Results: Laboratory Results - last 24 hr 09/20/17 05:14 INR (Anticoag Therapy) 2.69 H Exam: GEN: No acute distress. Alert and appropriate. LUNGS: clear to auscultation bilaterally. HEART: regular rate and rhythm ABDOMEN: + bowel sounds, soft, non-tender, non-distended. EXTREMITIES: no edema. Right knee dressing removed. Sutures are c/d/i. No swelling or erythema. NEUROLOGIC: CN II-XII intact. Motor 5/5 bue/ble and normal sensation. Assessment/Plan: 82yo woman s/p right total knee replacement 1. Right TKR: f/u with Greg. WBAT. 2. DVT ppx: continue same coumadin tonight. INR in M/W/F. 3. Mild fever: Resolved. CXR negative 09/18/17. Blood CX: Negative. Urine cultures with few enterococci; prob contaminant. 4. Mild leukocytosis: Looks like a chronic issue. She thinks this was addressed with her quality control technician, Dr. Castillo; She has f/u with Dr. Castillo in [place] on 10/18. 5. Chronic kidney disease with anemia: stable. f/u with Dr. Castillo 10/18. 6. Hypertension: continue same meds. 7. Advanced directives: DNR. is surrogate decision maker. 09/20/17 19:32 09/20/17 19:34
[2017-09-20] MEDS: Diltiazem CD CAP* 180 MG PO SCH (20:54)
[2017-09-20] MEDS: clonazePAM TAB(*) 0.5 MG PO PRN (20:54)
[2017-09-20] MEDS: Zolpidem TAB* 10 MG PO PRN (22:02)
[2017-09-21] MEDS: Levothyroxine TAB* 88 MCG TAB PO SCH (04:50)
[2017-09-21] MEDS: Omeprazole CAP* 20 MG PO SCH (04:50)
[2017-09-21] MEDS: Docusate CAP* 100 MG PO SCH ×2 (09:04→19:52)
[2017-09-21] MEDS: Losartan TAB* 25 MG PO SCH ×2 (09:05→19:53)
[2017-09-21] MEDS: BETAMETHASONE VAL 0.1% TOPICAL SCH ×2 (09:05→21:27)
[2017-09-21] MEDS: Cetirizine* 10 MG TAB PO SCH (09:05)
[2017-09-21] MEDS: Acetaminophen TAB* 325 MG PO PRN ×3 (09:07→19:52)
[2017-09-21] MEDS: Fluticasone NASAL SPRAY 50MCG* 16 gm SPRAY BTL BOTH NARES SCH (09:09)
[2017-09-21] MEDS ORDERED: Zolpidem TAB* 5 MG PO PRN (12:05)
--- NOTE | 2017-09-21 12:31 | PMRUTEAM ---
PMRU: Team Meeting Current Status: Nursing: Current Status Skin Deviations [Buttocks] Other Skin Deviations [Right Knee] Incision Skin Deviation Description [ redness Buttocks] Skin Deviation Description [ cryo unit in place Right Knee] Bladder Current Status Continent, uses toilet. Lowers pants/briefs by self. Bowel Current Status Continent of bowel Nutrition Current Status Independent with meals. 75% of most meals Medication Current Status Independent. Asks questions regarding medications appropriately. Physical Therapy: Current Status Bed Mobility Assistance Independent Transfer Moblility Assistance Supervision Transfer/Bed Mobility Rolling Walker Recommended Devices Ambulation Assistance Supervision Ambulation Assistive Devices Rolling Walker Number of Feet Patient 600 Ambulated Stairs Assistance Supervision Stairs Recommended Devices Two Rails Number of Stairs 10 Objective Comments patient demosntrates good ability in ascent and descent of stairs using a step to pattern. "this is how yobani been ding it for a long time". Occupational Therapy: Current Status Upper Body Dressing Independent Lower Body Dressing Ind with Adaptive Equip Bathing Ind with Adaptive Equip Toileting Ind with Adaptive Equip Toilet Transfer Ind with Adaptive Equip Shower Transfer Ind with Adaptive Equip Eating Independent Instrumental ADL Pt participates in meal prep making a grilled cheese. Pt gathers pak, spatula, knife, and ingredients using RW with no cues. Pt turns on stove, unwraps ingredients, spreads butter on bread, places cheese on bread, and puts sandwhich in the stove. Pt holds conversation while cooking and demonstrates good divided attention. Pt turns off stove with no cues and washes dishes. Rec Therapy: Current Status Summary of Assessment and RT assessment complete and pt. is aware of RT Clinical Impression services. Pt. is very social and identifies with an active leisure lifestyle. Pt. is open to continued leisure visits. Treatment Goals Pt. will engage in leisure activities while on the unit. Treatment Plan Provide RT services and encourage involvement. Social Work: Current Status Discharge Plan return home with home care svs and family support Potential for Family Training pt's is involved and supportive Anticipated Discharge Home Destination Discharge With home care svs and family support Nutrition: Current Status Monitoring s/p right TKR 09/14. No specific nutrition intervention at this time. Pt is eating well w/ regular diet. Skin is intact and w/low risk for breakdown. Labs 09/17 unremarkable. Bowel pattern regulated without c/o constipation. Goals: Physical Therapy: Updated Goals Transfer/Bed Mobility Rolling Walker Recommended Devices Occupational Therapy: Initial Goals Goals to be Completed in (Days 7-10 ) Upper Body Bathing Routine Independent Lower Body Bathing Routine Modified Independent with Upper Body Dressing Routine Independent Lower Body Dressing Routine Modified Independent with Toilet Hygeine and Clothing Modified Independent with Management Routine Toilet Transfer Routine Modified Independent with Step-In Shower Transfer Supervision/Set Up Routine Functional Transfers for ADL Modified Independent with Grooming Routine Independent Feeding Routine Independent Nursing: Goals Bladder Goal Continent. Independent Bowel Goal Independent with toileting Nutrition Goal Independent with meals Medication Goal Independent Nutrition: Goals Intervention Goals 1. adequate po intake to support post-op healing and lean body mass without add'l wt gain 2. regulation of post-op bowel pattern; no c/o constipation (or diarrhea) Social Work: Goals Discharge Plan return home with home care svs and family support Potential for Family Training pt's is involved and supportive Anticipated Discharge Home Destination Discharge With home care svs and family support Care Plan: Care Plan ADL's - Improve/Maintain Start: 09/20/17 15:30 Freq: DAILY Status: Active Target: Protocol: Activity Type Activity Date Activity User E-Sign Co-Sign Detail Recorded Client Recorded Date Recorded By Document 09/20/17 15:31 [id number] 09/20/17 15:31 [id number] 09/20/17 15:31 PMRU Outcome: ADL's/ADL Transfers Orders/Interventions Occupational Therapy Evaluation & Treatment Device Yes Patient to receive OT 5x/wk for 60-120 Therex min/day Self Care Management Group Therapy Neuromuscular ReEducation UE/LE ADL's with Assist Yes ADL Transfers with Assist Yes Toileting: Transfers,Clothing Management Yes ,Hygeine w/Assist Light Kitchen/Laundry w/Assist Yes Progression Toward Outcome/Goals Progressing Outcome/Goals Met Pt. presents with significant improvement with morning ADL routine. Pt. continues to be limited 2 * decreased RLE ROM. DVT Prophylaxis- Improve/Maintain Start: 09/17/17 13:22 Freq: DAILY Status: Active Target: Protocol: Activity Type Activity Date Activity User E-Sign Co-Sign Detail Recorded Client Recorded Date Recorded By Document 09/21/17 01:06 [id number] 09/21/17 01:07 [id number] 09/21/17 01:06 PMRU Outcome: DVT Prophylaxis Outcome/Goals Remains Free of DVT Complies with DVT Prophylaxis /Treatment Demonstrates Knowledge of DVT Prevention/ Treatment TEDS Stockings on Every AM, Off at HS Progression Toward Outcome/Goals Progressing Discharge Planning - Improve/Maintain Start: 09/17/17 13:22 Freq: DAILY Status: Active Target: Protocol: Activity Type Activity Date Activity User E-Sign Co-Sign Detail Recorded Client Recorded Date Recorded By Document 09/21/17 01:06 [id number] 09/21/17 01:07 [id number] 09/21/17 01:06 PMRU Outcome: Discharge Planning Update Patient Family No Outcome/Goals Demonstrates Understanding of Discharge Plan Progression Toward Outcome/Goals Progressing Education-Improve/Maintain Start: 09/17/17 13:22 Freq: DAILY Status: Active Target: Protocol: Activity Type Activity Date Activity User E-Sign Co-Sign Detail Recorded Client Recorded Date Recorded By Document 09/21/17 01:06 [id number] 09/21/17 01:07 [id number] 09/21/17 01:06 PMRU Outcome: Education Outcome/Goals Encourage Questions Progression Toward Outcome/Goals Progressing /GI-Improve/Maintain Start: 09/17/17 13:22 Freq: DAILY Status: Active Target: Protocol: Activity Type Activity Date Activity User E-Sign Co-Sign Detail Recorded Client Recorded Date Recorded By Document 09/21/17 01:06 [id number] 09/21/17 01:07 [id number] 09/21/17 01:06 PMRU Outcome: Genitourinary/ Gastrointestinal Genitourinary- Outcome/Goals Maintain/ Achieve Adequate Urinary Output Remain Free of Hospital- Acquired UTI Gastrointestinal-Outcome/Goals Maintain/ Achieve Bowel Regularity in Accordance with Pt's Baseline Prevent Constipation Laxatives as Ordered Progression Toward Outcome/Goals - Progressing Progression Toward Outcome/Goals - GI Progressing Outcome/Goals Met Comment pt up to BR Medication Administration Start: 09/17/17 13:22 Freq: DAILY Status: Active Target: Protocol: Activity Type Activity Date Activity User E-Sign Co-Sign Detail Recorded Client Recorded Date Recorded By Document 09/21/17 01:06 [id number] 09/21/17 01:07 [id number] 09/21/17 01:06 PMRU Outcome: Medication Administration Assess Patient Knowledge/Teach Med Yes Education for all Meds Outcome/Goals Patient Independent with Medication Administration at Home Demonstrates Understanding Progression Towards Outcome/Goals Progressing Is Patient Going Home on Lovenox? No Mobility- Improve/Maintain Start: 09/17/17 15:23 Freq: DAILY Status: Active Target: Protocol: Activity Type Activity Date Activity User E-Sign Co-Sign Detail Recorded Client Recorded Date Recorded By Document 09/17/17 15:23 [id number] 09/17/17 15:24 [id number] 09/17/17 15:23 PMRU Outcome: Mobility Physical Therapy Evaluation and Yes Treatment Activity OOB with Assistance Yes WBAT Yes Device Yes Assistance Yes Patient to be seen 5x/wk for 60-120 min/ Therex day for: Mobility Training Gait Training Balance Other Therapy Comment ROM Outcome/Goals Maintain/ Achieve Baseline Mobility Status Improve Mobility Status Demonstrates Proper Use of Assistive Devices Free from Complications of Immobility Bed Mobility Yes: Independent Transfers Yes: Modified independent with RW Gait x ft Yes: Modified independent 150 ' with RW Up/Down Stairs Yes: Independent 1 rail, straight cane 4 steps With HEP Yes Pain/Comfort- Improve/Maintain Start: 09/17/17 13:22 Freq: DAILY Status: Active Target: Protocol: Activity Type Activity Date Activity User E-Sign Co-Sign Detail Recorded Client Recorded Date Recorded By Document 09/21/17 01:06 [id number] 09/21/17 01:07 [id number] 09/21/17 01:06 PMRU Outcome: Pain/Comfort Outcome/Goals Demonstrates Knowledge and Use of Available Comfort Measures Achieves Acceptable Comfort/Pain Level as Determined by Patient/Condit Maintain Comfort Level Allowing Patient to Fully Participate in Rehab Progression Toward Outcome/Goals Progressing Outcome/Goals Met Comment cryo unit in place, pain medication given Safety- Improve/Maintain Start: 09/17/17 13:22 Freq: DAILY Status: Active Target: Protocol: Activity Type Activity Date Activity User E-Sign Co-Sign Detail Recorded Client Recorded Date Recorded By Document 09/21/17 01:06 [id number] 09/21/17 01:07 [id number] 09/21/17 01:06 PMRU Outcome: Safety Outcome/Goals Remain Free of Injury or Harm Cooperates with Safety Measures for Least Restrictive Environment Prevent Falls/ Injury Progression Toward Outcome/Goals Progressing Outcome/Goals Met Comment bed alarm in place Skin- Improve/Maintain Start: 06/15/18 13:22 Freq: DAILY Status: Active Target: Protocol: Activity Type Activity Date Activity User E-Sign Co-Sign Detail Recorded Client Recorded Date Recorded By Document 09/21/17 01:06 [id number] 09/21/17 01:07 [id number] 09/21/17 01:06 PMRU Outcome: Skin Skin Risk Level Low Skin Orders Dressing Change Dressing Change Comments pillows Outcome/Goals Free from Decubitus Surgical Incisions Healing Progression Toward Outcome/Goals Progressing Medicine Note: Length of Stay: 1 day Anticipated Discharge Destination: Home Tentative Discharge Date: 09/22/17 Discharged to: Home
[2017-09-21] MEDS: Warfarin TAB(*) 2 MG PO SCH (17:22)
--- NOTE | 2017-09-21 17:41 | PN ---
Progress Note Date of Service: 09/21/17 Note: LATONIA SAGASTUME was visited. Therapy notes read and reviewed. She was discussed in interdisciplinary team rounds. Mentally sharp and physically doing well. Current Medications: Active Medications Generic Name Dose Route Start Last Admin Trade Name Freq PRN Reason Stop Dose Admin Acetaminophen 650 mg 09/17/17 12:15 09/21/17 15:37 Tylenol Tab* PO 650 mg Q4H PRN Administration FEVER > 101 Al Hydrox/Mg Hydrox/Simethicone 30 ml 09/17/17 12:15 Maalox Plus* PO Q6H PRN INDIGESTION Betamethasone Valerate 1 applic 09/17/17 21:00 09/21/17 09:05 Valisone 0.1% Cm(Nf) TOPICAL 1 applic BID SHEELA Administration Protocol Cetirizine HCl 10 mg 09/17/17 14:00 09/21/17 09:05 Zyrtec* PO 10 mg DAILY SHEELA Administration Clonazepam 0.5 mg 09/17/17 13:07 09/20/17 20:54 Klonopin Tab(*) PO 0.5 mg BID PRN Administration ANXIETY Diltiazem HCl 180 mg 09/17/17 21:00 09/20/17 20:54 Cardizem Cd Cap* PO 180 mg BEDTIME SHEELA Administration Docusate Sodium 100 mg 09/17/17 21:00 09/21/17 09:04 Colace Cap* PO 100 mg BID SHEELA Administration Fluticasone Propionate 2 spray 09/18/17 09:00 09/21/17 09:09 Flonase Nasal [place] 50mcg* BOTH NARES Not Given DAILY SHEELA Levothyroxine Sodium 88 mcg 09/18/17 06:00 09/21/17 04:50 Synthroid Tab* PO 88 mcg DAILY@0600 SHEELA Administration Losartan Potassium 50 mg 09/17/17 21:00 09/21/17 09:05 Cozaar Tab* PO 50 mg BID SHEELA Administration Magnesium Hydroxide 30 ml 09/17/17 12:15 Milk Of Magnesia Liq* PO Q6H PRN CONSTIPATION Omeprazole 20 mg 09/18/17 06:00 09/21/17 04:50 Prilosec Cap* PO 20 mg DAILY@0600 SHEELA Administration Oxycodone/Acetaminophen 1 tab 09/17/17 13:12 Percocet 5/325 Tab* PO Q4H PRN PAIN Oxycodone/Acetaminophen 2 tab 09/17/17 13:13 09/17/17 14:41 Percocet 5/325 Tab* PO 2 tab Q4H PRN Administration PAIN Senna 2 tab 09/17/17 12:15 Senokot Tab* PO BEDTIME PRN CONSTIPATION Warfarin Sodium 2 mg 09/18/17 17:00 09/21/17 17:22 Coumadin Tab(*) PO 2 mg DAILY@1700 [facility] Administration Protocol Zolpidem Tartrate 5 mg 09/21/17 12:05 Ambien Tab* PO BEDTIME PRN INSOMNIA Vital Signs: Vital Signs Temp Pulse Resp BP Pulse Ox 98.2 F 75 20 143/61 100 09/21/17 15:54 09/21/17 15:54 09/21/17 15:54 09/21/17 15:54 09/21/17 15:54 Exam: GEN: No acute distress. Alert and appropriate. LUNGS: clear to auscultation bilaterally. HEART: regular rate and rhythm ABDOMEN: + bowel sounds, soft, non-tender, non-distended. EXTREMITIES: no edema. Right knee dressing removed. Sutures are c/d/i. No swelling or erythema. NEUROLOGIC: Motor 5/5 bue/ble except right quads and normal sensation. Assessment/Plan: 82yo woman s/p right total knee replacement 1. Right TKR: f/u with Dr. Garza. WBAT. 2. DVT Prophylaxis: continue same coumadin tonight. INR in AM 3. Mild fever: Resolved. CXR negative 09/18/17. Blood CX: Negative. Urine cultures with few enterococci; prob contaminant. 4. Mild leukocytosis: Looks like a chronic issue. She thinks this was addressed with her yard rigger, Dr. Castillo; She has f/u with Dr. Castillo in [place] on 10/18. 5. Chronic kidney disease with anemia: stable. f/u with Dr. Castillo 10/18. 6. Hypertension: continue same meds. 7. Advanced directives: DNR. is surrogate decision maker. 09/21/17 17:42
[2017-09-21] MEDS: clonazePAM TAB(*) 0.5 MG PO PRN (19:53)
[2017-09-21] MEDS: Diltiazem CD CAP* 180 MG PO SCH (21:24)
[2017-09-22] MEDS: Omeprazole CAP* 20 MG PO SCH (05:23)
[2017-09-22] MEDS: Levothyroxine TAB* 88 MCG TAB PO SCH (05:23)
[2017-09-22 06:01] VITALS: BP 160/63
[2017-09-22 07:05] LABS: INR 3.08 (0.77-1.02)
[2017-09-22] MEDS: BETAMETHASONE VAL 0.1% TOPICAL SCH (08:49)
[2017-09-22] MEDS: Cetirizine* 10 MG TAB PO SCH (08:49)
[2017-09-22] MEDS: Docusate CAP* 100 MG PO SCH (08:49)
[2017-09-22] MEDS: Losartan TAB* 25 MG PO SCH (08:49)
[2017-09-22] MEDS: Fluticasone NASAL SPRAY 50MCG* 16 gm SPRAY BTL BOTH NARES SCH (08:50)
[2017-09-22] MEDS: Acetaminophen TAB* 325 MG PO PRN (10:04)
--- NOTE | 2017-09-24 07:37 | DS ---
CC: Dr. Rubin Sanchez * DISCHARGE SUMMARY: DATE OF ADMISSION: 09/17/17 DATE OF DISCHARGE: 09/22/17 DISCHARGE DIAGNOSES: 1. Right total knee replacement. 2. Hypertension. 3. Chronic kidney disease. 4. History of melanoma. HISTORY OF ILLNESS AND HOSPITAL COURSE: For complete history of the events leading up to her rehab stay, please see the history and physical dictated by Dr. Leticia Anders on 09/17/17. While on the rehab unit, the patient was medically stable. She was maintained on Coumadin for DVT prophylaxis. She had a mild fever. Chest x- ray was negative and blood cultures were negative. The patient otherwise is medically stable. She was seen by Physical Therapy and Occupational Therapy and made good gains with both disciplines. With physical therapy at the time of admission, the patient required min assist to do a transfer. She was min assist with 2 people to ambulate 20 feet. With occupational therapy at the time of admission, the patient required total assistance for lower body dressing, total assistance for toileting, mod assist for toilet transfer. By the time of discharge, the patient was independent in lower body dressing, independent in upper body dressing, independent in toileting and toilet transfers. She was independent transfers, independent ambulating 150 feet. The patient was discharged home on 09/22/17. DISCHARGE DIET: Regular. DISCHARGE MEDICATIONS: 1. Coumadin 1 mg daily or as directed. 2. Cardizem CD 180 mg daily. 3. Synthroid 88 mcg daily. 4. Flonase nasal spray, 2 sprays to both nares daily. 5. Klonopin 0.5 mg twice daily as needed. 6. Omeprazole 20 mg daily. 7. Cozaar 50 mg daily. 8. Percocet 5/325 one tablet every 4 hours as needed. 9. Ambien 5 mg at bedtime as needed. SERVICES AFTER DISCHARGE: Through visiting nurse service, she will have home nursing and home physical therapy. Follow up with Dr. Cyndi Garza in 1 to 2 weeks. [id number]/[facility] #: [id number] [facility] CENTERLaury
== END 2017-09-22 11:00 | disposition home health service (06) | DRG 561 ==
LOC: PMRU 11:56 → UNDOADMIN 11:56 → UNDODISIN 09-22 11:00
PROVIDERS: ADMIT Physical Medicine & Rehabilitation; ATTEND Physical Medicine & Rehabilitation
PROC: F07Z5ZZ Bed Mobility Treatment (ICD-10-PCS; principal; 2017-09-17)
PROC: F07Z9ZZ Gait Training/Functional Ambulation Treatment (ICD-10-PCS; 2017-09-17)
PROC: F07Z8ZZ Transfer Training Treatment (ICD-10-PCS; 2017-09-17)
PROC: F08Z0ZZ Bathing/Showering Techniques Treatment (ICD-10-PCS; 2017-09-17)
PROC: F08Z1ZZ Dressing Techniques Treatment (ICD-10-PCS; 2017-09-17)
PROC: F08Z3ZZ Feeding/Eating Treatment (ICD-10-PCS; 2017-09-17)
DX: Z47.1 Aftercare following joint replacement surgery (principal); Z96.651 Presence of right artificial knee joint; I12.9 Hypertensive chronic kidney disease with stage 1 through stage 4 chronic kidney disease, or unspecified chronic kidney disease; N18.9 Chronic kidney disease, unspecified; D63.1 Anemia in chronic kidney disease; E78.5 Hyperlipidemia, unspecified; E03.9 Hypothyroidism, unspecified; Z66 Do not resuscitate; K21.9 Gastro-esophageal reflux disease without esophagitis; D72.828 Other elevated white blood cell count; E87.5 Hyperkalemia; Z79.1 Long term (current) use of non-steroidal anti-inflammatories (NSAID); Z79.899 Other long term (current) drug therapy; Z88.1 Allergy status to other antibiotic agents; Z88.8 Allergy status to other drugs, medicaments and biological substances; Z82.49 Family history of ischemic heart disease and other diseases of the circulatory system; Z82.3 Family history of stroke; Z84.1 Family history of disorders of kidney and ureter; R50.9 Fever, unspecified
CPT/HCPCS: 36415; 71046; 80053; 81003; 81015; 85025; 85610; 87040; 87086; A9270-GY

== ENCOUNTER 2018-01-22 11:26 | Emergency (ER) | payer MEDICARE ==
[2018-01-22 11:43] VITALS: BP 123/49
--- NOTE | 2018-01-22 12:49 | UC ---
Hand/Wrist HPI - HPI Summary HPI Summary: 82-year-old female presents requesting removal of rings from her left ring finger. She states that for several months now she has noticed some pain and swelling of all of her finger joints as well as some bilateral shoulder pain. She denies injury to the finger, pallor, cyanosis, numbness, or tingling in the finger. - History Of Current Complaint Chief Complaint: UCSkin Stated Complaint: RING REMOVAL Time Seen by Provider: 01/22/18 12:41 Hx Obtained From: Patient ?: No Onset/Duration: Gradual Onset Pain Intensity: 0 - Allergies/Home Medications Allergies/Adverse Reactions: Allergies Allergy/AdvReac Type Severity Reaction Status Date / Time amoxicillin [From Augmentin] Allergy Unknown Verified 01/22/18 11:43 Reaction Details atorvastatin [From Lipitor] Allergy stomach Verified 01/22/18 11:43 aches, fast pulse, tired, and no appetite azithromycin Allergy stomach Verified 01/22/18 11:43 ache clavulanic acid Allergy Unknown Verified 01/22/18 11:43 [From Augmentin] Reaction Details clonidine Allergy exhaustion Verified 01/22/18 11:43 w/ little effort doxazosin Allergy Unknown Verified 01/22/18 11:43 Reaction Details hydrocodone Allergy Dizziness Verified 01/22/18 11:43 lisinopril Allergy legs Verified 01/22/18 11:43 swollen niacin Allergy Flushing Verified 01/22/18 11:43 [From Niaspan Extended-Release] pravastatin Allergy Fatigue Verified 01/22/18 11:43 spironolactone Allergy ALTERED Verified 01/22/18 11:43 KIDNEY FUNCTION Xmpyysv-Cyj-Zaa Reductase Allergy patient Verified 01/22/18 11:43 Inhibitor states avoids all statins Beta-Blockers AdvReac "tiredness" Verified 01/22/18 11:43 (Beta-Adrenergic Bloc TRAMADOL Allergy Nausea Uncoded 01/22/18 11:43 PMH/Surg Hx/FS Hx/Imm Hx Endocrine History: Hypothyroidism, Dyslipidemia Cardiovascular History: Cardiac Disease, Hypertension GI/ History: Gastroesophageal Reflux Other GI/ History: Stage 3 CKD, anemia of chronic illness - Surgical History Surgical History: Yes Surgery Procedure, Year, and Place: thyroidectomy 1974 [facility]. cholecystectomy 1993 [facility]. arthroscopic meniscectomy right knee 2004 [facility]. BILATERAL CATARACTS. r carpal tunnel release. laminectomy. melanoma excision. knee surgery - Family History Known Family History: Positive: Hypertension - Social History Occupation: Retired Lives: With Family Alcohol Use: None Alcohol Amount: GLASS OF WINE Substance Use Type: None Smoking Status (MU): Former Smoker Type: Cigarettes Amount Used/How Often: 1ppd Length of Time of Smoking/Using Tobacco: 45 years Have You Smoked in the Last Year: No When Did the Patient Quit Smoking/Using Tobacco: QUIT 24 YRS AGO - Immunization History Most Recent Influenza Vaccination: 2016 Most Recent Tetanus Shot: unknown Most Recent Pneumonia Vaccination: 2017 Review of Systems Constitutional: Negative Skin: Negative Respiratory: Negative Cardiovascular: Negative Motor: Negative Neurovascular: Negative Musculoskeletal: Arthralgia Is Patient Immunocompromised?: No All Other Systems Reviewed And Are Negative: Yes Physical Exam Triage Information Reviewed: Yes Appearance: Well-Appearing, No Pain Distress, Well-Nourished Vital Signs: Initial Vital Signs Temp 97.7 F 01/22/18 11:36 Pulse 84 01/22/18 11:36 Resp 18 01/22/18 11:36 BP 123/49 01/22/18 11:36 Pulse Ox 99 01/22/18 11:36 Respiratory: Positive: Normal breath sounds Cardiovascular: Positive: Pulses Normal, Brisk Capillary Refill Neurological: Positive: Alert, Muscle Tone Normal, Other: - sensation intact Skin Exam: Normal Hand/Wrist Course/Dx - Course Course Of Treatment: 82-year-old female presents with several month history of joint pain and swelling to bilateral hands and bilateral shoulder pain requesting removal of her rings from her left ring finger. Her rings were successfully removed by the RN using the string pull technique. CMS to that finger was intact pre-and postprocedure. Recommending that the patient follow up with her primary care provider for further evaluation of her arthralgias. - Differential Dx/Diagnosis Provider Diagnoses: arthralgia, joint swelling, ring removal Discharge - Sign-Out/Discharge Documenting (check all that apply): Patient Departure All imaging exams completed and their final reports reviewed: No Studies - Discharge Plan Condition: Stable Disposition: HOME Patient Education Materials: Arthralgia (ED), Swollen Joint (ED) Referrals: Rubin Sanchez MD [Primary Care Provider] - As Soon As Possible Additional Instructions: We were able to successfully remove your rings today. I would recommend that you call your primary care provider and schedule an appointment for further evaluation of your joint pain and swelling. You may take [id number] acetaminophen (Tylenol) according to directions as needed for aches and pain. - Billing Disposition and Condition Condition: STABLE Disposition: Home
== END 2018-01-22 13:00 | disposition home or self-care (01) ==
LOC: UCEAST 11:26
DX: M25.542 Pain in joints of left hand (principal); M79.89 Other specified soft tissue disorders; M25.512 Pain in left shoulder; M25.511 Pain in right shoulder; Z88.1 Allergy status to other antibiotic agents; Z88.5 Allergy status to narcotic agent; Z88.0 Allergy status to penicillin; Z88.8 Allergy status to other drugs, medicaments and biological substances; Z87.891 Personal history of nicotine dependence
CPT/HCPCS: 99213; G0463

== ENCOUNTER 2018-07-31 18:32 | Inpatient (IN) | payer MEDICARE ==
[2018-07-31] MEDS ORDERED: NS 0.9% 1000 ML** 1,000 ML IV ONE (19:16)
--- NOTE | 2018-07-31 19:24 | ED ---
Abdominal Pain/Female - HPI Summary HPI Summary: This patient is an 83 year old F presenting to [facility] accompanied by and son with a chief complaint of central, epigastric abd pain that began one week ago. The patient rates the pain 6/10 in severity. Symptoms aggravated by eating. Symptoms alleviated by nothing. Patient reports chills, loss of appetite , recent weight loss, nausea, and weakness. Patient states she has previously had a cholecystectomy. - History of Current Complaint Chief Complaint: EDAbdPain Stated Complaint: WEAKNESS/UNABLE TO EAT/VOMITING PER SON Time Seen by Provider: 07/31/18 19:14 Hx Obtained From: Patient ?: No Onset/Duration: Sudden Onset, Lasting Weeks, Still Present Timing: Constant Severity Initially: Moderate Severity Currently: Moderate Pain Intensity: 6 Pain Scale Used: 0-10 Numeric Location: Epigastric Radiates: No Aggravating Factor(s): Food Alleviating Factor(s): Nothing Associated Signs and Symptoms: Positive: Other: - Positive chills, loss of appetite, recent weight loss, nausea, and weakness Allergies/Adverse Reactions: Allergies Allergy/AdvReac Type Severity Reaction Status Date / Time amoxicillin [From Augmentin] Allergy Unknown Verified 07/31/18 18:49 Reaction Details atorvastatin [From Lipitor] Allergy stomach Verified 07/31/18 18:49 aches, fast pulse, tired, and no appetite azithromycin Allergy stomach Verified 07/31/18 18:49 ache clavulanic acid Allergy Unknown Verified 07/31/18 18:49 [From Augmentin] Reaction Details clonidine Allergy exhaustion Verified 07/31/18 18:49 w/ little effort doxazosin Allergy Unknown Verified 07/31/18 18:49 Reaction Details hydrocodone Allergy Dizziness Verified 07/31/18 18:49 lisinopril Allergy legs Verified 07/31/18 18:49 swollen niacin Allergy Flushing Verified 07/31/18 18:49 [From Niaspan Extended-Release] pravastatin Allergy Fatigue Verified 07/31/18 18:49 spironolactone Allergy ALTERED Verified 07/31/18 18:49 KIDNEY FUNCTION Wnxxezb-Bzs-Lad Reductase Allergy patient Verified 07/31/18 18:49 Inhibitor states avoids all statins Beta-Blockers AdvReac "tiredness" Verified 07/31/18 18:49 (Beta-Adrenergic Bloc TRAMADOL Allergy Nausea Uncoded 07/31/18 18:49 Home Medications: Home Medications Acetaminophen TAB* [Tylenol TAB*] 650 mg PO Q4H PRN 07/31/18 [History Confirmed 07/31/18] Ondansetron ODT TAB* [Zofran 4 MG Odt TAB*] 4 mg PO Q8H PRN 07/31/18 [History Confirmed 07/31/18] Sulfamethoxazole/Trimethoprim [Sulfamethoxazole-Tmp Ds Tablet] 1 each PO BID [History Confirmed 07/31/18] busPIRone TAB* [Buspar TAB*] 5 mg PO BID 07/31/18 [History Confirmed 07/31/18] hydroCHLOROthiazide [Hydrochlorothiazide] 12.5 mg PO DAILY 07/31/18 [History Confirmed 07/31/18] PMH/Surg Hx/FS Hx/Imm Hx Previously Healthy: No Endocrine/Hematology History: Reports: Hx Thyroid Disease, Hx Anemia, Other Endocrine/Hematological Disorders - polymyalgia rheumatica Denies: Hx Diabetes Cardiovascular History: Reports: Hx Hypercholesterolemia, Hx Hypertension Denies: Hx Pacemaker/ICD, Hx Rheumatic Fever GI History: Reports: Hx Gastroesophageal Reflux Disease History: Reports: Other Problems/Disorders - chronic kidney disease Denies: Hx Renal Disease Musculoskeletal History: Reports: Hx Back Problems - low back pain, Other Musculoskeletal History - carpal tunnel release-r, laminectomy Sensory History: Reports: Hx Cataracts - SURGERY 11/13/15, 817/10, Hx Contacts or Glasses Denies: Hx Hearing Aid, Hx Hearing Problem Opthamlomology History: Reports: Hx Cataracts - SURGERY 11/13/15, 817/10, Hx Contacts or Glasses Psychiatric History: Reports: Hx Anxiety - TAKES MEDICATION NEEDED Denies: Hx Panic Disorder - Cancer History Cancer Type, Location and Year: melanoma Hx Chemotherapy: No Hx Radiation Therapy: No - Surgical History Surgery Procedure, Year, and Place: [place]ide[place] [facility] [place]ectomy 1993 [facility] [place]. arthroscopic meniscectomy right knee 2004 [facility] [place]. BILATERAL CATARACTS. r carpal tunnel release. laminectomy. melanoma excision. knee surgery Hx Anesthesia Reactions: No Infectious Disease History: No Infectious Disease History: Denies: Hx Clostridium Difficile, Hx Hepatitis, Hx Human Immunodeficiency Virus (HIV), Hx of Known/Suspected MRSA, Hx Shingles, Hx Tuberculosis, Hx Known/ Suspected VRE, Hx Known/Suspected VRSA, History Other Infectious Disease, Traveled Outside the [place] in Last 30 Days - Family History Known Family History: Positive: Hypertension - Social History Occupation: Retired Lives: With Family Alcohol Use: Occasionally Alcohol Amount: GLASS OF WINE Hx Substance Use: No Substance Use Type: Reports: None Hx Tobacco Use: Yes Smoking Status (MU): Former Smoker Type: Cigarettes Amount Used/How Often: 1ppd Length of Time of Smoking/Using Tobacco: 45 years Have You Smoked in the Last Year: No Review of Systems Positive: Chills Positive: Abdominal Pain, Nausea, Other - Positive loss of appetite and recent weight loss Positive: Weakness All Other Systems Reviewed And Are Negative: Yes Physical Exam - Summary Physical Exam Summary: Appearance: Well-appearing, Well-nourished, lying in bed comfortably Skin: Warm, dry, no obvious rash Eyes: sclera anicteric, no conjunctival pallor ENT: mucous membranes moist, pharynx appears normal Neck: Supple, nontender Respiratory: Clear to auscultation, no signs of respiratory distress Cardiovascular: Normal S1, S2. No murmurs. Normal distal pulses in tibial and radial bilaterally. Abdomen: Soft, nontender upon palpation, normal active bowel sounds present Musculoskeletal: Normal, Strength/ROM Intact Neurological: A&Ox3, awake and alert, mentation is normal, speech is fluent and appropriate Psychiatric: affect is normal, does not appear anxious or depressed Triage Information Reviewed: Yes Vital Signs On Initial Exam: Initial Vitals Temp Pulse Resp BP Pulse Ox 97.3 F 79 16 154/102 96 07/31/18 18:49 07/31/18 18:49 07/31/18 18:49 07/31/18 18:49 07/31/18 18:49 Vital Signs Reviewed: Yes Diagnostics - Vital Signs Vital Signs Temp Pulse Resp BP Pulse Ox 07/31/18 18:49 97.3 F 79 16 154/102 96 - Laboratory Result Diagrams: 07/31/18 20:00 08/01/18 00:50 Lab Statement: Any lab studies that have been ordered have been reviewed, and results considered in the medical decision making process. - CT CT Abdomen and Pelvis CT Interpretation Completed By: Radiologist Summary of CT Findings: CT abdomen and pelvis reveals, per radiologist, Thickening of the wall of the sigmoid colon. No mesenteric inflammation. Occasional colonic diverticuli without evidence of acute diverticulitis. No associated obstruction of the colon proximal to the area of colonic wall thickening. This may represent an area of peristaltic narrowing. Cannot exclude a focal colitis. However there is no associated mesenteric inflammation. No free fluid or an associated mass. Cannot exclude an early neoplastic process. ED physician has reviewed this radiology report. Re-Evaluation - Re-Evaluation First Eval Re-Evaluation Time: 22:36 Change: Unchanged Comment: Discussed results and plan of care with the patient Abdominal Pain Fem Course/Dx - Course Course Of Treatment: This patient is an 83 year old F presenting to [facility] [place] accompanied by and son with a chief complaint of central, epigastric abd pain that began one week ago. Physical Exam Findings: No tenderness to the abdomen upon palpation. CT abdomen and pelvis reveals, per radiologist, Thickening of the wall of the sigmoid colon. No mesenteric inflammation. Occasional colonic diverticuli without evidence of acute diverticulitis. No associated obstruction of the colon proximal to the area of colonic wall thickening. This may represent an area of peristaltic narrowing. Cannot exclude a focal colitis. However there is no associated mesenteric inflammation. No free fluid or an associated mass. Cannot exclude an early neoplastic process. Bloodwork and UA obtained. In the ED course the patient was given contrast and fluids. Consult with Dr. Murphy (hospitalist) at 2220. She agrees to admit the patient for further evaluation. The patient is agreeable with this plan. - Diagnoses Provider Diagnoses: Upper abdominal pain, Hyponatremia - Provider Notifications Discussed Care Of Patient With: Brooke Murphy Time Discussed With Above Provider: 22:20 Instructed by Provider To: Other Discharge - Sign-Out/Discharge Documenting (check all that apply): Patient Departure - Admit [place] [facility] [place] Patient Received Moderate/Deep Sedation with Procedure: No - Discharge Plan Condition: Stable Disposition: ADMITTED TO [facility] - Billing Disposition and Condition Condition: STABLE Disposition: Admitted to [facility] - Attestation Statements Document Initiated by Scribe: Yes Documenting Scribe: Nancy Chiang Provider For Whom Bahman is Documenting (Include Credential): Dr. Thomas Mahoney MD Scribe Attestation: Nancy Briseno scribed for Dr. Thomas Mahoney MD on 08/01/18 at 0348. Scribe Documentation Reviewed: Yes Provider Attestation: The documentation as recorded by the Nancy busch accurately reflects the service I personally performed and the decisions made by me, Dr. Thomas Mahoney MD Status of Scribe Document: Viewed
[2018-07-31 20:17] LABS: Hematocrit 41 % (33-41); Hemoglobin 13.6 g/dL (12.0-16.0); Mean Corpuscular HGB Conc 34 g/dL (31-36); Mean Corpuscular Hemoglobin 29 pg (27-31); Mean Corpuscular Volume 87 fL (80-97); Mean Platelet Volume 6.3 fL (7.4-10.4); Platelet Count 325 10^3/uL (150-450); Red Blood Count 4.63 10^6 /uL (3.70-4.87); Red Cell Distribution Width 14 % (10.5-15); White Blood Count 15.6 10^3/uL (3.5-10.8)
[2018-07-31 20:27] LABS: Albumin 4.6 g/dL (3.2-5.2); Albumin/Globulin Ratio 1.8 (1-3); BUN/Creatinine Ratio 12.4 (8-20); Calcium 9.5 mg/dL (8.6-10.3); EGFR African American 36.9 (>60); EGFR Non-African American 30.5 (>60); Globulin 2.6 g/dL (2-4); Total Bilirubin 0.5 mg/dL (0.2-1.0); Total Protein 7.2 g/dL (6.4-8.9)
[2018-07-31] MEDS ORDERED: Iodixanol* (CONTRAST) 320 MG/ML 100 ML SDV IV ONE (20:44)
[2018-07-31 21:02] LABS: ABS Basophils 0.1 10^3/ul (0-0.2); ABS Eosinophils 0.1 10^3/ul (0-0.6); ABS Lymphocytes 4.6 10^3/ul (1.0-4.8); ABS Monocytes 1.6 10^3/ul (0-0.8); ABS Neutrophils 9.2 10^3/ul (1.5-7.7); ABS Nucleated RBC 0 10^3/ul; Lymphocyte % 29.5 %; Nucleated Red Blood Cells % 0.1
[2018-07-31 21:21] LABS: Urine Appearance Clear; Urine Bacteria Absent (Absent); Urine Bilirubin Negative (Negative); Urine Blood Negative (Negative); Urine Color Straw; Urine Glucose Negative (Negative); Urine Ketones Negative (Negative); Urine Nitrite Negative (Negative); Urine Protein Negative (Negative); Urine Red Blood Cell Absent (Absent); Urine Specific Gravity 1.003 (1.010-1.030); Urine Squamous Epithelial Cell Present (Absent); Urine Urobilinogen Negative (Negative); Urine White Blood Cell Trace(0-5/hpf) (Absent)
[2018-08-01] MEDS ORDERED: Acetaminophen TAB* 325 MG PO PRN (00:28)
[2018-08-01] MEDS ORDERED: Ondansetron INJ* 2 MG/ML VIAL IV PRN (00:31)
[2018-08-01] MEDS ORDERED: LORazepam TAB(*) 0.5 MG PO PRN (00:33)
[2018-08-01 01:14] LABS: TSH (Thyroid Stimulating Horm) 22.37 mcIU/mL (0.34-5.60)
[2018-08-01 01:14] LABS: BUN/Creatinine Ratio 12.4 (8-20); Calcium 8.8 mg/dL (8.6-10.3); EGFR African American 41.6 (>60); EGFR Non-African American 34.4 (>60); Potassium 3.7 mmol/L (3.5-5.0)
[2018-08-01] MEDS ORDERED: Pantoprazole IV* 40 MG IV SCH (03:00)
[2018-08-01] MEDS: Enoxaparin(*) 30 MG/0.3 ML SYR SUBCUT SCH (03:15)
[2018-08-01] MEDS: Melatonin 3 MG TAB PO PRN (03:17)
[2018-08-01] MEDS ORDERED: Zolpidem TAB* 5 MG PO PRN (03:22)
--- NOTE | 2018-08-01 05:25 | HP ---
HISTORY AND PHYSICAL: DATE OF ADMISSION: 08/01/18 CHIEF COMPLAINT: Epigastric pain. PRIMARY CARE PROVIDERS: Dr. Rubin Sanchez and Dr. Jeanmarie Schroeder. MANAGER SOCIAL WORK: Aram Botello, the patient's . CODE STATUS: DNR. SOURCE OF INFORMATION: History of present illness is obtained from the patient , who is an excellent historian. HISTORY OF PRESENT ILLNESS: This is an 83-year-old female with past medical history of CKD stage 3, hypothyroidism, hypertension, anxiety, chronic low back pain, history of polymyalgia rheumatica, who presented to the emergency room [facility] with the chief complaint of central epigastric pain for 1 week. The patient reports that she started gradually having epigastric pain that is aggravated by food for the past 7 to 10 days. She tried eating a bland diet with no improvement. She had some mild constipation associated with this, and on day 4, she decided to use Fleet Enema and has had fairly loose stools ever since. The pain is described as central in nature without radiation, feels like a 9, burning, and tender pain particularly made worse after eating and happens almost immediately after eating, otherwise has no pain at rest. The patient reports that other than constipation, her stools were normal. They are usually dark because she is on iron supplementation, but she did not notice darker stools. She has had mild nausea associated with this epigastric pain but no episodes of vomiting. The diarrhea that she has had since she performed Fleet Enema has been loose but nonbloody, not dark. She was on antibiotics about 10 days ago for a urinary tract infection, Bactrim, for a few days but otherwise no new medications. At the request of her family and because she had such poor p.o. intake over the past 7 days, she decided to present to the emergency room. Furthermore, the patient reports that she has lost 10 to 12 pounds over the last 2 weeks unintentionally. In the emergency room, the patient's vital signs are stable, temperature 97.7, heart rate 84, respiratory rate 18, 99% on room air. Labs showed leukocytosis of 15 and hemoglobin of 13. BMP was performed, which showed low sodium at 119 and a creatinine of 1.6. Her baseline creatinine is around 1.4. Lipase and LFTs are normal. CT abdomen and pelvis was done, which showed thickening of the sigmoid colon but no associated mesenteric stranding. The hospitalist team was asked to evaluate the patient for hyponatremia, ALEX, and further evaluation of her epigastric pain. Of note, the patient has had routine colonoscopy, last one 8 years ago, which she reports with no acute findings. PAST MEDICAL HISTORY: CKD stage 3; hypothyroidism; hypertension; anxiety, on benzos; chronic low back pain; history of PMR; history of an immunologic low globulin level. PAST SURGICAL HISTORY: Status post thyroidectomy, status post cholecystectomy, status post arthroscopic knee surgery, status post bilateral cataracts, status post right carpal tunnel, status post laminectomy. MEDICATIONS: She is on: 1. Clonazepam 0.5 mg p.o. once p.r.n. for anxiety. 2. Fluticasone 2 sprays nasal daily. 3. Hydrochlorothiazide 12.5 mg p.o. daily. 4. Losartan 50 mg p.o. b.i.d. 5. Omeprazole 20 mg p.o. q.a.m. 6. Ondansetron 4 mg p.o. q.8 hours p.r.n. 7. Zolpidem 5 mg p.o. q.h.s. 8. Acetaminophen 650 mg p.o. q.4 hours. 9. Buspirone 5 mg p.o. b.i.d. 10. Diltiazem 180 mg p.o. q.p.m. 11. Levothyroxine 88 mcg p.o. daily. ALLERGIES: AMOXICILLIN, ATORVASTATIN, AZITHROMYCIN, SPIRONOLACTONE, STATINS, BETA- BLOCKERS, TRAMADOL, LISINOPRIL, HYDROCODONE, DOXAZOSIN, CLONIDINE. FAMILY HISTORY: Her mother at age 104 from natural causes. Her father , she is unsure of his past medical history. 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 She lives with her . She is a former tobacco user with a 63-xgms-sask history, quit greater than 15 years ago. She is a social alcohol drinker with 1 drink per month. Never history of illicits. REVIEW OF SYSTEMS: Constitutional: The patient denies fevers or chills. Does say she has had 10 to 12 pounds of unintentional weight loss in the last 7 to 10 days. HEENT: Denies headaches, vision changes, difficulty swallowing, mouth pain, or throat pain. Cardiovascular: Denies chest pain, palpitations or orthopnea. Respiratory: Denies shortness of breath, cough, or pleuritic chest pain. GI: Does endorse abdominal pain, epigastric, with nausea. Denies vomiting. Episode of constipation and has had 2 days of loose stools after enema. : Denies dysuria or hematuria. Musculoskeletal: Denies myalgias, arthralgias, or weakness. Skin: Denies new rashes or lesions. Neurological: Denies focal weakness or numbness. Psychiatric: Denies depression or anxiety. Endocrine: Denies polyuria or polydipsia. Heme: Denies easy bruising, bleeding, or lymphadenopathy. PHYSICAL EXAMINATION GENERAL: This is a very well-appearing woman in no acute distress, pleasant. A and O x3. VITAL SIGNS: At the time of physical exam, blood pressure is 137/72, heart rate 74, respiratory rate 15, oxygen saturation is 98%. HEENT: Pupils are equal and reactive to light. Extraocular muscles are intact. Sclerae anicteric. Mouth: She is with dentures. Dry mucous membranes and no other oral lesions. NECK: Supple with no supraclavicular or cervical lymphadenopathy. LUNGS: Clear to auscultation bilaterally. CARDIAC: She has regular rate and rhythm with no murmurs, rubs, or gallops. ABDOMEN: Soft, nontender, nondistended with normoactive bowel sounds. MUSCULOSKELETAL: She moves all 4 extremities spontaneously. EXTREMITIES: She has no edema. 2+ pedal pulses. NEUROLOGIC: Cranial nerves II through XII are intact. No focal neurologic deficits. A an O x4. DIAGNOSTIC STUDIES/LAB DATA: White blood cell count 15.6, hemoglobin 13.6, hematocrit 41, platelets 325. Sodium 119, potassium 4, chloride 86, carbon dioxide 24, BUN 20, creatinine 1.6, glucose 100. AST 18, ALT 14, alkaline phosphatase 71, lipase 78. Lactic acid 0.6. Imaging done included a CT abdomen and pelvis, which was read as thickening of the wall of the sigmoid colon with no mesenteric inflammation, occasional colonic diverticula without evidence of acute diverticulitis, no associated obstruction of the colon proximal to the area of the colonic wall thickening. This may represent an area of peristaltic narrowing, cannot exclude a focal colitis; however, there is no associated mesenteric inflammation. No free fluid or associated mass. Imaging and labs reviewed by myself. ASSESSMENT AND PLAN: This is an 83-year-old female with past medical history of chronic kidney disease stage 3, hypothyroidism, hypertension, osteoarthritis , chronic low back pain, anxiety, who is presenting to the emergency room tonight with 1 week of epigastric pain, worsened by food intake and unintentional weight loss. She is found to have hyponatremia and possibly acute kidney injury on chronic kidney disease. 1. Epigastric pain. History is most concerning for peptic ulcer disease. She has had no melena or hematemesis, although she does have tender epigastric pain particularly exacerbated by food. CT abdomen and pelvis is unremarkable. We will consult GI and see if she is appropriate for EGD. Meanwhile, we will start IV PPI and sucralfate and maintain on a clear liquid diet. 2. Hyponatremia. This is most likely in the setting of hypovolemia given poor p.o. intake. We will continue IV fluids and also send for urine osmolality to determine if there is a component of syndrome of inappropriate antidiuretic hormone secretion . Furthermore, the patient is hypothyroid and we will send off for TSH to see if there is a component of hypothyroidism. We will hold home hydrochlorothiazide. 3. Acute kidney injury in the setting of chronic kidney disease stage 3, again probably hypovolemic. Continue gentle IV fluid resuscitation. 4. Thickened sigmoid colon. This is seen on imaging with no clear evidence of colitis, no diarrhea, and abdominal pain is not concordant with this area. At this point, we will hold on antibiotics given no clear source. She does have mild leukocytosis, but we will send off for stool studies and C. diff as well as fecal occult blood before reflexively starting antibiotics for colitis. 5. Hypertension. We will resume half doses of losartan at 50 mg once daily instead of b.i.d. dosing, holding HCTZ and we will continue the patient's home diltiazem. 6. Hypothyroidism. Check TSH and resume home medication. 7. Anxiety. We will continue buspirone. We will offer p.r.n. clonazepam and we will hold Ambien in this hospitalization given dual benzodiazepines not ideal for an 83-year-old patient. 8. Back pain. We will continue offering Tylenol. 9. Leukocytosis. As above, unclear if this is related to epigastric pain or thickening of sigmoid colon. She has no other infectious signs or symptoms or signs of systemic inflammatory response. We will hold on antibiotics and continue to trend. 10. DVT prophylaxis: We will place the patient on Lovenox. 11. Diet is clear liquids. 12. Code status is DNR, would be okay for intubation. 13. Disposition: The patient is stable for medical floor. TIME SPENT: Forty five minutes was spent in the planning of this admission with over half of that spent directly at the bedside with the patient providing direct patient care. Plan of care was discussed with the patient and plans for admission, possible consultation with GI to further identify causes of the epigastric pain. She is agreeable to admission and has no further questions. [id number]/[facility] #: [id number] HALLIE
[2018-08-01] MEDS ORDERED: Levothyroxine TAB* 88 MCG TAB PO SCH (06:00)
[2018-08-01] MEDS: Levothyroxine TAB* 100 MCG TAB PO SCH (06:01)
[2018-08-01] MEDS: Losartan TAB* 25 MG PO SCH (08:09)
[2018-08-01] MEDS: busPIRone TAB* 5 MG PO SCH ×2 (08:10→22:10)
[2018-08-01] MEDS: Sucralfate SUSP 1 GM/10 ml 10 ML UDC PO SCH ×3 (08:30→15:54)
[2018-08-01] MEDS ORDERED: Hydrochlorothiazide TAB* 25 MG PO SCH (09:00)
--- NOTE | 2018-08-01 12:32 | PN ---
Subjective Date of Service: 08/01/18 Interval History: Patient admitted overnight with epigastric pain, nausea, worse after eating for 7-10 days. Pain is better today, tolerated clear liquids this AM. States she has lost 15 lbs in 10 days. Denies diarrhea, fever. Family History: Unchanged from Admission Social History: Unchanged from Admission Past Medical History: Unchanged from Admission Objective Active Medications: Acetaminophen (Tylenol Tab*) 650 mg PO Q4H PRN PRN Reason: PAIN Buspirone HCl (Buspar Tab*) 5 mg PO BID [facility] Last Admin: 08/01/18 08:10 Dose: 5 mg Diltiazem HCl (Cardizem Cd Cap*) 180 mg PO QPM [facility] Enoxaparin Sodium (Lovenox(*)) 30 mg SUBCUT Q24H [facility] Last Admin: 08/01/18 03:15 Dose: 30 mg Sodium Chloride (Ns 0.9% 1000 Ml) 1,000 mls @ 100 mls/hr IV PER RATE [facility] Stop: 08/02/18 10:44 Levothyroxine Sodium (Synthroid Tab*) 100 mcg PO DAILY@0600 [facility] Last Admin: 08/01/18 06:01 Dose: 100 mcg Lorazepam (Ativan Tab(*)) 0.5 mg PO Q12H PRN PRN Reason: ANXIETY Losartan Potassium (Cozaar Tab*) 25 mg PO DAILY [facility] Last Admin: 08/01/18 08:09 Dose: 25 mg Melatonin (Melatonin) 3 mg PO BEDTIME PRN PRN Reason: SLEEP Last Admin: 08/01/18 03:17 Dose: 3 mg Ondansetron HCl (Zofran Inj*) 4 mg IV Q6H PRN PRN Reason: NAUSEA Pantoprazole Sodium (Protonix Iv*) 40 mg IV Q24H [facility] Sucralfate (Sucralfate Susp) 1 gm PO 0630,1100,1600 [facility] Last Admin: 08/01/18 10:13 Dose: 1 gm Zolpidem Tartrate (Ambien Tab*) 5 mg PO BEDTIME PRN PRN Reason: INSOMNIA Vital Signs - 8 hr 08/01/18 08/01/18 08/01/18 08:31 09:09 11:15 Temperature 36.6 C 36.3 C Pulse Rate 65 61 Respiratory 16 16 16 Rate Blood Pressure 143/56 128/63 (mmHg) O2 Sat by Pulse 99 100 Oximetry Oxygen Devices in Use Now: None Appearance: alert, no distress Eyes: No Scleral Icterus Ears/Nose/Mouth/Throat: Clear Oropharnyx Neck: NL Appearance and Movements; NL JVP Respiratory: Symmetrical Chest Expansion and Respiratory Effort, Clear to Auscultation Cardiovascular: NL Sounds; No Murmurs; No JVD, RRR Abdominal: NL Sounds; No Tenderness; No Distention, No Hepatosplenomegaly Lymphatic: No Cervical Adenopathy Neurological: Alert and Oriented x 3 Lines/Tubes/Other Access: Clean, Dry and Intact Peripheral IV Nutrition: Taking PO's Result Diagrams: 07/31/18 20:00 08/01/18 00:50 Microbiology and Other Data: Microbiology 08/01/18 03:51 Stool Gross Appearance - Final Stool C. difficile DNA Amplification - Final 027 Presumptive NEGATIVE Toxigenic C.diff NEGATIVE 08/01/18 03:51 Stool Occult Blood (LUIZ) - Final Stool 08/01/18 03:51 Stool Gross Appearance - Final Stool Assess/Plan/Problems-Billing Assessment: 83 year old woman admitted w/ post-prandial epigastric pain, weight loss, concern for peptic ulcer - Patient Problems (1) Epigastric pain Current Visit: Yes Status: Acute Priority: High Code(s): R10.13 - EPIGASTRIC PAIN SNOMED Code(s): 72315053 Comment: -Differential would include gastric or duodenal ulcer, acalculous cholecystitis. -Does not appear to have gallstones, or pancreatic mass on CT -Called endoscopy to discuss GI consult, with eye toward EGD. (2) Peptic ulcer disease Current Visit: Yes Status: Acute Priority: Medium Code(s): K27.9 - PEPTIC ULC, SITE UNSP, UNSP AC OR CHR, W/O HEMOR OR PERF SNOMED Code(s): 71649308 Comment: -no apparent hemorrhage -Increased protonix to BID (3) Hyponatremia with extracellular fluid depletion Current Visit: Yes Status: Acute Priority: High Code(s): E87.1 - HYPO- OSMOLALITY AND HYPONATREMIA SNOMED Code(s): 35807470 Comment: -hyponatremia partially due to dehydration, ARB may play a role too. -Improved w/ IV saline, will continue (4) DVT prophylaxis Current Visit: Yes Status: Acute Priority: Low Code(s): HQZ5172 - SNOMED Code(s): 434780073 Comment: -SC lovenox Status and Disposition: inpatient
[2018-08-01] MEDS: Pantoprazole IV* 40 MG IV SCH (15:54)
[2018-08-01] MEDS: NS 0.9% 1000 ML** 1,000 ML IV SCH (16:18)
[2018-08-01] MEDS ORDERED: Diltiazem CD CAP* 180 MG PO SCH (18:00)
--- NOTE | 2018-08-01 18:26 | CONS ---
CONSULTATION REPORT: DATE OF CONSULT: 08/01/18 REQUESTING PHYSICIAN: Dr. Yanez. INDICATION: Epigastric pain. NARRATIVE: Ms. Botello is a very pleasant 83-year-old female who states for the past 3 weeks she has not been feeling well at all. Her main GI complaint is that anytime she eats, she immediately experiences epigastric pain. It can last for 2 to 3 hours afterwards. It does not matter what she eat. She denies any nausea or vomiting with this. She has no pain at rest. No blood in the stool. However, she does state that she has been a little constipated. She did take Fleet enema, which caused diarrhea. Only new medication was Bactrim for UTI approximately 2 weeks ago. She also has been feeling worn out, fatigued , lethargic, unable to get out of bed, dizzy, lightheaded and has fallen a couple of times. Given all of these symptoms, she was brought to the emergency room last night. She denies taking any aspirin or other nonsteroidals. She denies ever having an upper endoscopy. She has lost 16 pounds in the past couple of weeks. All foods cause pain. PAST MEDICAL HISTORY: Significant for chronic kidney disease, hypertension, hypothyroid, anxiety, polymyalgia rheumatica. PAST SURGICAL HISTORY: Include cholecystectomy, thyroidectomy, knee surgery, carpal tunnel and laminectomy. MEDICATIONS UPON ADMISSION: Include: 1. Synthroid 88 mcg. 2. Diltiazem 180 mg. 3. Wellbutrin 5 mg. 4. Zolpidem 5 mg. 5. Zofran 4 mg. 6. Omeprazole 20. 7. Losartan 50 mg. 8. Hydrochlorothiazide 12.5 mg. 9. Fluticasone 2 sprays. 10. Clonazepam as needed. ALLERGIES: To AMOXICILLIN, AZITHROMYCIN, STATINS, SPIRONOLACTONE, BETA-BLOCKERS , TRAMADOL, LISINOPRIL, HYDROCODONE, CLONIDINE. FAMILY HISTORY: No GI malignancies in the family. SOCIAL HISTORY: She quit smoking many years ago. Rare alcohol. REVIEW OF SYSTEMS: 12 systems were reviewed, other than that mentioned in the HPI were unremarkable. PHYSICAL EXAM: Temperature is 97.8, blood pressure is 128/50, pulse is 67, respiratory rate of 16, O2 sat is 98%. General: Well-appearing female, sitting up in bed, alert, oriented, pleasant, fluent. HEENT: Mucous membranes are moist without lesions, ulcers, or exudate. Neck is supple. Trachea is midline. Head is normocephalic, atraumatic. Heart: Regular rate and rhythm. Lungs: Clear to auscultation. Abdomen: Positive bowel sounds. Soft, nontender, nondistended. No hepatosplenomegaly, masses, rebound, or guarding. Skin is warm and dry. DIAGNOSTIC STUDIES/LAB DATA: Labs of note, white count is 15.6, platelets of 325, hemoglobin is 13.6. Sodium went from 119 to 122, chloride is 91, creatinine is 1.45. Her LFTs yesterday were normal. She also had a CT abdomen and pelvis last night at 7:30, which revealed thickening of the wall of the sigmoid colon, occasional diverticula, no diverticulosis, possible colitis, cannot exclude an early neoplastic process. ASSESSMENT AND PLAN: This is a pleasant 83-year-old female with pain with eating. Possible etiologies would include peptic ulcer disease, H. pylori, celiac, mesenteric ischemia. At this point, I would like to begin her evaluation with an upper endoscopy. We will make arrangements for tomorrow. If unremarkable, we may need to consider mesenteric Doppler ultrasound. She will be n.p.o. after midnight and further workup will be determined by her EGD tomorrow. She did eat today, thus we are unable to perform her EGD today. Her last colonoscopy was [address] shows possible colitis. However, I would like to perform an EGD first. [id number]/[facility] #: [id number] [facility] HOSPITALLaury
[2018-08-02] MEDS: Melatonin 3 MG TAB PO PRN (00:03)
[2018-08-02] MEDS: NS 0.9% 1000 ML** 1,000 ML IV SCH (02:09)
[2018-08-02] MEDS: Enoxaparin(*) 30 MG/0.3 ML SYR SUBCUT SCH (04:17)
[2018-08-02] MEDS: Pantoprazole IV* 40 MG IV SCH ×2 (04:17→15:32)
[2018-08-02] MEDS: Levothyroxine TAB* 100 MCG TAB PO SCH (06:00)
[2018-08-02 06:27] LABS: ABS Basophils 0.1 10^3/ul (0-0.2); ABS Eosinophils 0.2 10^3/ul (0-0.6); ABS Lymphocytes 3.4 10^3/ul (1.0-4.8); ABS Monocytes 1.1 10^3/ul (0-0.8); ABS Neutrophils 5.3 10^3/ul (1.5-7.7); ABS Nucleated RBC 0 10^3/ul; Eosinophil % 2.1 %; Hematocrit 33 % (33-41); Hemoglobin 11.3 g/dL (12.0-16.0); Lymphocyte % 33.6 %; Mean Corpuscular HGB Conc 34 g/dL (31-36); Mean Corpuscular Hemoglobin 30 pg (27-31); Mean Corpuscular Volume 88 fL (80-97); Nucleated Red Blood Cells % 0; Platelet Count 262 10^3/uL (150-450); Red Blood Count 3.78 10^6 /uL (3.70-4.87); Red Cell Distribution Width 14 % (10.5-15); White Blood Count 10.1 10^3/uL (3.5-10.8)
[2018-08-02 06:58] LABS: BUN/Creatinine Ratio 7.4 (8-20); Calcium 8.7 mg/dL (8.6-10.3); EGFR African American 51.3 (>60); EGFR Non-African American 42.4 (>60); Potassium 3.5 mmol/L (3.5-5.0)
[2018-08-02] MEDS: Sucralfate SUSP 1 GM/10 ml 10 ML UDC PO SCH ×3 (07:11→15:19)
[2018-08-02] MEDS: Losartan TAB* 25 MG PO SCH (09:59)
[2018-08-02] MEDS: busPIRone TAB* 5 MG PO SCH (09:59)
--- NOTE | 2018-08-02 15:11 | PN ---
Subjective Date of Service: 08/02/18 Interval History: Patient feels fine, has no abdominal pain. But pain has typically been post- prandial, and she is NPO for EGD. She has appetite, wants a "breakfast sandwich." Family History: Unchanged from Admission Social History: Unchanged from Admission Past Medical History: Unchanged from Admission Objective Active Medications: Acetaminophen (Tylenol Tab*) 650 mg PO Q4H PRN PRN Reason: PAIN Last Admin: 08/01/18 22:56 Dose: 650 mg Buspirone HCl (Buspar Tab*) 5 mg PO BID [facility] Last Admin: 08/02/18 09:59 Dose: 5 mg Diltiazem HCl (Cardizem Cd Cap*) 180 mg PO QPM [facility] Last Admin: 08/01/18 18:06 Dose: 180 mg Enoxaparin Sodium (Lovenox(*)) 30 mg SUBCUT Q24H [facility] Last Admin: 08/02/18 04:17 Dose: Not Given Levothyroxine Sodium (Synthroid Tab*) 100 mcg PO DAILY@0600 [facility] Last Admin: 08/02/18 06:00 Dose: 100 mcg Lorazepam (Ativan Tab(*)) 0.5 mg PO Q12H PRN PRN Reason: ANXIETY Last Admin: 08/01/18 15:53 Dose: 0.5 mg Losartan Potassium (Cozaar Tab*) 25 mg PO DAILY [facility] Last Admin: 08/02/18 09:59 Dose: 25 mg Melatonin (Melatonin) 3 mg PO BEDTIME PRN PRN Reason: SLEEP Last Admin: 08/02/18 00:03 Dose: 3 mg Ondansetron HCl (Zofran Inj*) 4 mg IV Q6H PRN PRN Reason: NAUSEA Pantoprazole Sodium (Protonix Iv*) 40 mg IV Q12H [facility] Last Admin: 08/02/18 04:17 Dose: 40 mg Sucralfate (Sucralfate Susp) 1 gm PO 0630,1100,1600 [facility] Last Admin: 08/02/18 11:00 Dose: Not Given Zolpidem Tartrate (Ambien Tab*) 5 mg PO BEDTIME PRN PRN Reason: INSOMNIA Last Admin: 08/01/18 22:10 Dose: 5 mg Vital Signs - 8 hr 08/02/18 08/02/18 08/02/18 08:00 08:40 11:53 Temperature 36.4 C 36.3 C Pulse Rate 61 58 Respiratory 20 18 16 Rate Blood Pressure 136/65 163/65 (mmHg) O2 Sat by Pulse 99 99 Oximetry 08/02/18 11:54 Temperature 36.3 C Pulse Rate 58 Respiratory 16 Rate Blood Pressure 163/65 (mmHg) O2 Sat by Pulse 99 Oximetry Oxygen Devices in Use Now: None Appearance: alert, no distress Eyes: No Scleral Icterus Ears/Nose/Mouth/Throat: Clear Oropharnyx Respiratory: Symmetrical Chest Expansion and Respiratory Effort, Clear to Auscultation Cardiovascular: NL Sounds; No Murmurs; No JVD, RRR Abdominal: NL Sounds; No Tenderness; No Distention, No Hepatosplenomegaly Skin: No Rash or Ulcers Neurological: Alert and Oriented x 3 Lines/Tubes/Other Access: Clean, Dry and Intact Peripheral IV Nutrition: Taking PO's Result Diagrams: 08/02/18 06:13 08/02/18 06:13 Microbiology and Other Data: Microbiology 08/01/18 03:51 Stool Stool Occult Blood (LUIZ) - Final 08/01/18 03:51 Stool Stool Gross Appearance - Final 08/01/18 03:51 Stool C. difficile DNA Amplification - Final 027 Presumptive NEGATIVE Toxigenic C.diff NEGATIVE 08/01/18 03:51 Stool Shiga Toxin I & II - Final Negative Shiga Toxin 1 & 2 07/31/18 21:03 Urine Urine Culture - Final Assess/Plan/Problems-Billing Assessment: 83 year old woman admitted w/ post-prandial epigastric pain, weight loss, concern for peptic ulcer. - Patient Problems (1) Epigastric pain Current Visit: Yes Status: Acute Priority: High Code(s): R10.13 - EPIGASTRIC PAIN SNOMED Code(s): 46772524 Comment: -Differential would include gastric or duodenal ulcer, acalculous cholecystitis. -Does not appear to have gallstones, or pancreatic mass on CT -EGD today, possible discharge later this evening (2) Peptic ulcer disease Current Visit: Yes Status: Acute Priority: Medium Code(s): K27.9 - PEPTIC ULC, SITE UNSP, UNSP AC OR CHR, W/O HEMOR OR PERF SNOMED Code(s): 04775138 Comment: -no apparent hemorrhage -Increased protonix to BID (3) Hyponatremia with extracellular fluid depletion Current Visit: Yes Status: Acute Priority: High Code(s): E87.1 - HYPO- OSMOLALITY AND HYPONATREMIA SNOMED Code(s): 24519173 Comment: -hyponatremia partially due to dehydration, ARB may have played a role too. -Improved w/ IV saline, will stop when no longer NPO (4) DVT prophylaxis Current Visit: Yes Status: Acute Priority: Low Code(s): VUA0179 - SNOMED Code(s): 493829609 Comment: -SC lovenox (5) Hypertension Current Visit: No Status: Acute Priority: Medium Code(s): I10 - ESSENTIAL (PRIMARY) HYPERTENSION SNOMED Code(s): 53486477 Comment: - not fully controlled - increase losartan and continue diltiazem (6) CKD (chronic kidney disease) stage 3, GFR 30-59 ml/min Current Visit: No Status: Acute Priority: Medium Code(s): N18.3 - CHRONIC KIDNEY DISEASE, STAGE 3 (MODERATE) SNOMED Code(s): 504124485 Comment: - Creatinine returning to baseline around 1.2 w/ hydration Status and Disposition: inpatient, possible discharge this evening
[2018-08-02] MEDS ORDERED: D5NS 0.9% 1000 ML BAG* 1,000 ML IV SCH (16:00)
[2018-08-02] MEDS ORDERED: Losartan TAB* 25 MG PO ONE (18:30)
[2018-08-02] MEDS ORDERED: fentaNYL* 50 MCG/ML 2 ML VIAL (100 MCG VIAL) ONE (18:51)
[2018-08-02] MEDS ORDERED: Midazolam* 1 MG/ML 10 ML VIAL (10 MG) ONE (18:51)
[2018-08-02 23:40] VITALS: BP 136/65
--- NOTE | 2018-08-02 23:49 | PRO ---
DATE: 08/02/18 - ROOM #[id number] REFERRING PHYSICIAN: Dr. Rubin Sanchez.* PROCEDURE: Upper gastrointestinal endoscopy and biopsy of gastric greater curvature. INDICATION: This 83-year-old woman comes in with complaint of pain after eating. It occurs every day with all meals. She cannot specify a specific food. She denies any relief with Pepto-Bismol, Tums. She was placed on omeprazole at some point. The discomfort continues. There has been no complaint of dysphagia or vomiting. She has lost 16 pounds. She quit smoking about 20 years ago. She has never had any circulation problems and denies any history of heart stents, MO, stroke, or being told she had poor circulation. CT abdomen/pelvis, 07/31/18, commented on possible thickening of the sigmoid colon. She has had a number of colonoscopies. The last was 2010. The CT does not comment on the vasculature. ENDOSCOPIST: Dr. Smart. MEDICATIONS: Midazolam 4, fentanyl 37.5. FINDINGS: She is an elderly woman, in no overt distress. She was positioned left side down and moderate sedation administered. Her eyes were closed, although she was conversant immediately post procedure and sedation appeared to have been light. EGD: Larynx - symmetric, limited views. Esophagus - rather tight cricopharyngeal area, though there was no gross pathology. Esophagus in the upper, mid and lower esophagus appeared normal. The EG junction was a little bit loose, but there were no erosions and no fixed hiatal hernia. Stomach - generally normal contours and rugal folds. There were a few 2 to 4 mm polyps. They appeared very benign consistent with soft fundic gland polyps. The antrum appeared normal. Two biopsies were taken from the mid greater curvature to rule out infiltrative process. Duodenum - the pylorus, bulb, and second through fourth portions appeared normal. There were no erosions and no mass lesions. The valvulae in the second and third portions appeared normal. IMPRESSION: 1. Gastric polyps - multiple very small benign inconsequential lesions. 2. Normal EGD otherwise. 3. Prominent cricopharyngeal area. 4. Weight loss and abdominal pain - cause not determined with this exam. Review of the vasculature on a prior CT is awaited. [id number]/[facility] #: [id number] [facility]
[2018-08-03] MEDS ORDERED: Losartan TAB* 25 MG PO SCH (09:00)
--- NOTE | 2018-08-03 13:40 | DS ---
DISCHARGE SUMMARY: DATE OF ADMISSION: 08/01/18 DATE OF DISCHARGE: 08/02/18 PRIMARY DIAGNOSIS: Epigastric pain with weight loss. SECONDARY DIAGNOSES: 1. Polymyalgia rheumatica. 2. Chronic back pain. 3. Hypertension. 4. Anxiety. 5. Hypothyroidism. 6. Chronic kidney disease, stage 3. 7. History of low immunoglobulin level. 8. History of tobacco abuse. MEDICATIONS ON DISCHARGE: 1. Acetaminophen 650 mg p.o. q.4 hours p.r.n. pain. 2. BuSpar 5 mg p.o. b.i.d. 3. Clonazepam 0.5 mg p.o. q.h.s. p.r.n. 4. Diltiazem CD 180 mg p.o. q.p.m. 5. Flonase nasal spray 2 sprays each nostril daily as needed. 6. Ondansetron 4 mg p.o. q.8 hours p.r.n. nausea. 7. Levothyroxine 100 mcg p.o. daily. 8. Losartan 50 mg p.o. daily. 9. Omeprazole 20 mg p.o. b.i.d. for 1 month and then return to 20 daily. 10. Sucralfate liquid 1 g/10 mL, 1 g p.o. q.a.c. and q.h.s. as needed for abdominal pain. 11. Zolpidem 5 mg p.o. q.h.s. p.r.n. insomnia. HOSPITAL COURSE: An 83-year-old woman who presented to the emergency department with worsening epiga stric pain that was generally postprandial. She also reported decreased food intake and a 10-pound w eight loss in the last 2 weeks. The patient's initial CAT scan in the emergency department showed no gallstones or gallbladder wall thickening, no other intestinal pathology other than some possible th ickening of the distal sigmoid colon, which was nonspecific. The patient was admitted to the [facility] and kept n.p.o. for most of the stay. She had a consultation with Dr. Schroeder of Gastroenterology regarding possible peptic ulcer. The patient had an upper endoscopy with Dr. Smart on 08/02/18, [facility] showed no gastric ulcer, no duodenal ulcer, no sign of gastroparesis. Pending at discharge is pat hology from gastric biopsy. The patient had resolution of her abdominal pain during the hospital sta y, but it was unclear whether this was attributed to being n.p.o. We also reduced her dose of losart an and stopped her hydrochlorothiazide and her blood pressure remained in the 101/83 to 136/65 range on the last day she was here. The patient had a white count of 15.6 on admission, which fell to 10.1 on discharge. The patient als o had hyponatremia with sodium of 119, which improved to 134 with hydration with normal saline. She also had a creatinine of 1.6 on admission and 1.2 on discharge. Both the hyponatremia and the creati nine elevation were attributed to poor p.o. intake and hypovolemia. Her thyroid was checked and TSH was 22.37. This indicated some undertreatment of her hypothyroidism, so her dose of Synthroid was increased. The TSH to be rechecked in 2 to 3 months. In summary, we did not find a diagnosis for her epigastric pain, but the pain resolved and she was to lerating food and drink on the evening of discharge. She may have had a transient viral gastritis or some medication-induced irritation of her stomach. She also may have some gastroparesis. If her ab dominal pain continues, she should go back to Dr. Schroeder for a consult. PROCEDURES IN THE HOSPITAL: Upper endoscopy. CONDITION: Stable. STATUS DURING THE HOSPITAL STAY: Inpatient. DIET: Should be soft solids and advance as tolerated. ACTIVITY: Should be as tolerated. FOLLOWUP: Should be with Dr. Sanchez within 1 week. TIME SPENT: I spent more than 37 minutes addressing the patient's needs on the day of discharge, arr anging for testing and followup, and completing necessary paperwork, so she will be discharged. [id number]/[facility] #: [id number]
== END 2018-08-02 21:00 | disposition home or self-care (01) | DRG 641 ==
LOC: ED 18:32 → MED 23:26
PROVIDERS: ADMIT Internal Medicine; ATTEND Internal Medicine
PROC: 0DD68ZX Extraction of Stomach, Via Natural or Artificial Opening Endoscopic, Diagnostic (ICD-10-PCS; principal; 2018-08-02)
DX: E87.1 Hypo-osmolality and hyponatremia (principal); N17.9 Acute kidney failure, unspecified; E86.1 Hypovolemia; E86.0 Dehydration; R10.13 Epigastric pain; Z66 Do not resuscitate; N18.3 Chronic kidney disease, stage 3 (moderate); I12.9 Hypertensive chronic kidney disease with stage 1 through stage 4 chronic kidney disease, or unspecified chronic kidney disease; E03.9 Hypothyroidism, unspecified; F41.9 Anxiety disorder, unspecified; G89.29 Other chronic pain; M35.3 Polymyalgia rheumatica; K27.9 Peptic ulcer, site unspecified, unspecified as acute or chronic, without hemorrhage or perforation; D72.829 Elevated white blood cell count, unspecified; K31.7 Polyp of stomach and duodenum; M54.9 Dorsalgia, unspecified; R63.4 Abnormal weight loss; E66.3 Overweight; Z68.29 Body mass index [BMI] 29.0-29.9, adult; Z79.1 Long term (current) use of non-steroidal anti-inflammatories (NSAID); Z79.899 Other long term (current) drug therapy; Z88.1 Allergy status to other antibiotic agents; Z88.8 Allergy status to other drugs, medicaments and biological substances; Z87.891 Personal history of nicotine dependence
CPT/HCPCS: 36415; 74177; 80048; 80053; 81003; 81015; 82270; 83605; 83690; 84443; 85025; 87045; 87046; 87086; 87493; 87899; 88305; 99156; 99157; 99284; A9270-GY; J1650; J2250; J3010; Q9967

== ENCOUNTER 2018-11-17 14:42 | Emergency (ER) | payer MEDICARE ==
[2018-11-17] MEDS ORDERED: Labetalol IV* 5 MG/ML 20 ML VIAL IV PUSH ONE (15:34)
--- NOTE | 2018-11-17 15:36 | ED ---
Hypertension - HPI Summary HPI Summary: 83 [facility] accompanied by complains of hypertension since this afternoon at her primary care provider's office where her blood pressure was 220s systolic. Symptoms aggravated by nothing. Symptoms alleviated by nothing. Patient denies headache, blurred vision, chest pain, shortness of breath. Patient has hx hypertension for which she takes losartan and Cardizem. Patient's blood pressure is normally 130s systolic. Denies recent change in diet. Patient states she cooks at home. - History of Current Complaint Chief Complaint: EDHypertension Stated Complaint: HIGH BLOOD PRESSURE Time Seen by Provider: 11/17/18 15:25 Hx Obtained From: Patient Onset/Duration: Started Hours Ago, Still Present Timing: Constant Aggravating Factor(s): Nothing Alleviating Factor(s): Nothing Associated Signs & Symptoms: Negative - headache, blurred vision, chest pain, shortness of breath - Allergies/Home Medications Allergies/Adverse Reactions: Allergies Allergy/AdvReac Type Severity Reaction Status Date / Time amoxicillin [From Augmentin] Allergy Unknown Verified 07/31/18 18:49 Reaction Details atorvastatin [From Lipitor] Allergy stomach Verified 07/31/18 18:49 aches, fast pulse, tired, and no appetite azithromycin Allergy stomach Verified 07/31/18 18:49 ache clavulanic acid Allergy Unknown Verified 07/31/18 18:49 [From Augmentin] Reaction Details clonidine Allergy exhaustion Verified 07/31/18 18:49 w/ little effort doxazosin Allergy Unknown Verified 07/31/18 18:49 Reaction Details hydrocodone Allergy Dizziness Verified 07/31/18 18:49 lisinopril Allergy legs Verified 07/31/18 18:49 swollen niacin Allergy Flushing Verified 07/31/18 18:49 [From Niaspan Extended-Release] pravastatin Allergy Fatigue Verified 07/31/18 18:49 spironolactone Allergy ALTERED Verified 07/31/18 18:49 KIDNEY FUNCTION Fjuwykw-Ezf-Fgs Reductase Allergy patient Verified 07/31/18 18:49 Inhibitor states avoids all statins tramadol Allergy Nausea Verified 08/01/18 06:48 Beta-Blockers AdvReac "tiredness" Verified 07/31/18 18:49 (Beta-Adrenergic Bloc Home Medications: Home Medications Losartan TAB* [Cozaar TAB*] 100 mg PO DAILY 11/17/18 [History Confirmed 11/17/18 ] PMH/Surg Hx/FS Hx/Imm Hx Endocrine/Hematology History: Reports: Hx Thyroid Disease, Hx Anemia, Other Endocrine/Hematological Disorders - polymyalgia rheumatica Denies: Hx Diabetes Cardiovascular History: Reports: Hx Hypercholesterolemia, Hx Hypertension Denies: Hx Pacemaker/ICD, Hx Rheumatic Fever GI History: Reports: Hx Gastroesophageal Reflux Disease History: Reports: Other Problems/Disorders - chronic kidney disease Denies: Hx Renal Disease Musculoskeletal History: Reports: Hx Back Problems - low back pain, Other Musculoskeletal History - carpal tunnel release-r, laminectomy Sensory History: Reports: Hx Cataracts - SURGERY 11/13/15, 817/10, Hx Contacts or Glasses Denies: Hx Hearing Aid, Hx Hearing Problem Opthamlomology History: Reports: Hx Cataracts - SURGERY 11/13/15, 817/10, Hx Contacts or Glasses Psychiatric History: Reports: Hx Anxiety - TAKES MEDICATION NEEDED Denies: Hx Panic Disorder - Cancer History Cancer Type, Location and Year: melanoma Hx Chemotherapy: No Hx Radiation Therapy: No - Surgical History Surgery Procedure, Year, and Place: thyroidectomy 1974 [facility]. cholecystectomy 1993 [facility] arthroscopic meniscectomy right knee 2004 [facility]. BILATERAL CATARACTS. r carpal tunnel release. laminectomy. melanoma excision. knee surgery Hx Anesthesia Reactions: No Infectious Disease History: No Infectious Disease History: Denies: Hx Clostridium Difficile, Hx Hepatitis, Hx Human Immunodeficiency Virus (HIV), Hx of Known/Suspected MRSA, Hx Shingles, Hx Tuberculosis, Hx Known/ Suspected VRE, Hx Known/Suspected VRSA, History Other Infectious Disease, Traveled Outside the [place] in Last 30 Days - Family History Known Family History: Positive: Hypertension - Social History Alcohol Use: Occasionally Alcohol Amount: GLASS OF WINE Hx Substance Use: No Substance Use Type: Reports: None Hx Tobacco Use: Yes Smoking Status (MU): Former Smoker Type: Cigarettes Amount Used/How Often: 1ppd Length of Time of Smoking/Using Tobacco: 45 years Have You Smoked in the Last Year: No Review of Systems Negative: Blurred Vision Positive: Other - hypertension. Negative: Chest Pain Negative: Shortness Of Breath Negative: Headache All Other Systems Reviewed And Are Negative: Yes Physical Exam - Summary Physical Exam Summary: VITAL SIGNS: Reviewed. GENERAL: Patient is a well-developed and nourished FEMALE who is lying comfortable in the stretcher. Patient is not in any acute respiratory distress. HEAD AND FACE: No signs of trauma. No ecchymosis, hematomas or skull depressions. No sinus tenderness. EYES: PERRLA, EOMI x 2, No injected conjunctiva, no nystagmus. EARS: Hearing grossly intact. Ear canals and tympanic membranes are within normal limits. MOUTH: Oropharynx within normal limits. NECK: Supple, trachea is midline, no adenopathy, no JVD, no carotid bruit, no c- spine tenderness, neck with full ROM. CHEST: Symmetric, no tenderness at palpation. LUNGS: Clear to auscultation bilaterally. No wheezing or crackles. CVS: Regular rate and rhythm, S1 and S2 present, no murmurs or gallops appreciated. ABDOMEN: Soft, non-tender. No signs of distention. No rebound, no guarding, and no masses palpated. Bowel sounds are normal. EXTREMITIES: FROM in all major joints, no edema, no cyanosis or clubbing. NEURO: Alert and oriented x 3. No acute neurological deficits. Speech is normal and follows commands. SKIN: Dry and warm. Triage Information Reviewed: Yes Vital Signs On Initial Exam: Initial Vitals Temp Pulse Resp BP Pulse Ox 100.1 F 83 16 222/100 96 11/17/18 14:43 11/17/18 14:43 11/17/18 14:43 11/17/18 14:43 11/17/18 14:43 Vital Signs Reviewed: Yes Diagnostics - Vital Signs Vital Signs Temp Pulse Resp BP Pulse Ox 11/17/18 14:51 212/100 11/17/18 14:43 100.1 F 83 16 222/100 96 - Laboratory Result Diagrams: 11/17/18 15:45 11/17/18 15:45 Lab Statement: Any lab studies that have been ordered have been reviewed, and results considered in the medical decision making process. - EKG 1610 Cardiac Rate: NL - 63 BPM EKG Rhythm: Sinus Rhythm EKG Comparison: No Significant Change - compared to 04/16/16 Summary of EKG Findings: Sinus rhythm [address] elevations. Similar to previous EKG done on 04/16/16 Re-Evaluation - Re-Evaluation First Eval Re-Evaluation Time: 16:35 Comment: discussed results and disposition plan. patient is agreeable to discharge Hypertension Course/Dx - Course Assessment/Plan: 83 year old F presenting to [facility] from primary care provider accompanied by complains of hypertension since this afternoon at her primary care provider's office where her blood pressure was 220s systolic. Symptoms aggravated by nothing. Symptoms alleviated by nothing. Patient denies headache, blurred vision, chest pain, shortness of breath. Patient has hx hypertension for which she takes losartan and Cardizem. Patient's blood pressure is normally 130s systolic. Denies recent change in diet. Patient states she cooks at home. Blood work without any significant abnormality except for WBCs of 11.7 creatinine is 1.37 however the patient has a history of chronic renal disease. Glucose is 117. In the ED course the patient was given labetalol 20 mg IV and the blood pressure improved. Bilateral blood pressures 162/68. Since the patient is asymptomatic the patient will be discharged home with follow-up with PCP for better control of the blood pressure. She was recommended to take an extra dose of Cartia XT if the blood pressure increases. The patient understands and agrees. Patient is hemodynamically stable alert and oriented 3. - Diagnoses Provider Diagnoses: Uncontrolled hypertension Discharge - Sign-Out/Discharge Documenting (check all that apply): Patient Departure - Discharge Patient Received Moderate/Deep Sedation with Procedure: No - Discharge Plan Condition: Stable Disposition: HOME Patient Education Materials: Hypertension in the Older Adult (ED) Referrals: Rubin Sanchez MD [Primary Care Provider] - 3 Days Additional Instructions: Follow up with your primary care provider in 3 days. Return to the Emergency Department for new or worsening symptoms. - Billing Disposition and Condition Condition: STABLE Disposition: Home - Attestation Statements Document Initiated by Bahman: Yes Documenting Scribe: Janice Soto Provider For Whom Bahman is Documenting (Include Credential): Franky Jones MD Scribe Attestation: Janice Briseno, scribed for Franky Jones MD on 11/17/18 at 1839. Scribe Documentation Reviewed: Yes Provider Attestation: The documentation as recorded by the taliibeJanice accurately reflects the service I personally performed and the decisions made by me, Franky Jones MD Status of Scribe Document: Viewed
[2018-11-17 15:52] LABS: ABS Basophils 0.1 10^3/ul (0-0.2); ABS Eosinophils 0.1 10^3/ul (0-0.6); ABS Lymphocytes 3.3 10^3/ul (1.0-4.8); ABS Monocytes 1.2 10^3/ul (0-0.8); Eosinophil % 0.9 %; Hematocrit 39 % (35-47); Hemoglobin 12.7 g/dL (12.0-16.0); Lymphocyte % 28.5 %; Mean Corpuscular HGB Conc 33 g/dL (31-36); Mean Corpuscular Hemoglobin 29 pg (27-31); Mean Corpuscular Volume 88 fL (80-97); Mean Platelet Volume 6.5 fL (7.4-10.4); Platelet Count 311 10^3/uL (150-450); Red Blood Count 4.39 10^6 /uL (3.70-4.87); Red Cell Distribution Width 15 % (10-15); White Blood Count 11.7 10^3/uL (3.5-10.8)
[2018-11-17 16:12] LABS: Albumin 4.3 g/dL (3.2-5.2); Albumin/Globulin Ratio 1.4 (1-3); BUN/Creatinine Ratio 14.6 (8-20); Calcium 10.2 mg/dL (8.6-10.3); EGFR African American 44.4 (>60); EGFR Non-African American 36.7 (>60); Globulin 3.1 g/dL (2-4); Total Bilirubin 0.6 mg/dL (0.2-1.0); Total Protein 7.4 g/dL (6.4-8.9)
[2018-11-17 16:47] VITALS: BP 162/65
== END 2018-11-17 16:40 | disposition home or self-care (01) ==
LOC: ED 14:42
DX: I12.9 Hypertensive chronic kidney disease with stage 1 through stage 4 chronic kidney disease, or unspecified chronic kidney disease (principal); N18.9 Chronic kidney disease, unspecified; E07.9 Disorder of thyroid, unspecified; D64.9 Anemia, unspecified; E78.00 Pure hypercholesterolemia, unspecified; K21.9 Gastro-esophageal reflux disease without esophagitis; F41.9 Anxiety disorder, unspecified; Z88.1 Allergy status to other antibiotic agents; Z88.5 Allergy status to narcotic agent; Z88.0 Allergy status to penicillin; Z88.8 Allergy status to other drugs, medicaments and biological substances; Z79.899 Other long term (current) drug therapy; Z87.891 Personal history of nicotine dependence
CPT/HCPCS: 36415; 80053; 83605; 83880; 85025; 93005; 96374; 99283

== ENCOUNTER 2018-12-30 08:48 | Inpatient (IN) | payer MEDICARE ==
[~2018-12-30 08:48] MED LIST changes: -Buffered Lidocaine 0.9% SYRIN* 5 ML/SYR SYRINGE INTRADERM ONE; +Buffered Lidocaine 1% SYRIN* 1 ML/SYRINGE INTRADERM ONE; -Gabapentin CAP(*) 300 MG PO ONE; +Lactated Ringers 1000 ML Bag* 1,000 ML IV SCH; +Tranexamic Acid 1,000 MG in NS 0.9% 50 ML* (outpatient use) IV SCH
--- OUTSIDE RECORDS SUMMARY | 2018-12-30 08:52 | XMS REPORT | Summary of Care ---
:1935 Author Organization [facility] Address [address] [facility] [place] [address] Care Team Providers Name Role Phone Etienne Wong MD Primary Care Provider Unavailable Reason for Referral Refer to Department Only (Routine) Status Reason Specialty Diagnoses / Procedures Referred By Referred To Contact Contact Authorized Orthopedics Diagnoses Primary osteoarthritis of left hip Deuce Robbins MD [address] [place] [address] [place] [address] Reason for Visit Reason Comments New Patient Low back pain. Patient reports low back pain for many years. Patient has had surgery on her lower back. Patient has gone to PT. Encounter Details Date Type Department Care Team Description 11/23/2018 Office Visit [facility] Deuce Robbins MD Primary osteoarthritis - [place] [address] [facility] of left hip (Primary [address] [facility] [address] [place], [place] [address] [place] [address] [phone] Allergies Active Allergy Reactions Severity Noted Date Comments Amoxicillin Unknown Reaction 11/23/2018 Azithromycin GI Reaction 11/23/2018 Beta Adrenergic Blockers C[employer]URE [employer]ESS[employer]KER Reaction 11/23/2018 Clonidine C[employer]ESS[employer]KER Reaction 11/23/2018 Hydrocodone Unknown Reaction 11/23/2018 Atorvastatin Cardiac Reaction, GI Reaction 11/23/2018 Lisinopril Swelling 11/23/2018 Niacin [employer]ESS[employer]ER Reaction 11/23/2018 Pravastatin Unknown Reaction 11/23/2018 Spironolactone C[employer]URE [employer]ESSMAKER Reaction 11/23/2018 documented as of this encounter (statuses as of 11/23/2018) Medications Medication Sig Dispensed Refills Start Date End Date Status levothyroxine Take 100 mcg by 0 Active (SYNTHROID\\UNITHROID) mouth. 100 MCG Oral Tab Omeprazole delayed rel Take 20 mg by 0 Active cap 20 MG Oral CAPSULE mouth. DELAYED RELEASE losartan (COZAAR) 50 MG Take 50 mg by 0 Active Oral Tab mouth. clonazePAM (KLONOPIN) Take 0.5 mg by 0 Active 0.5 MG Oral Tab mouth. diltiazem (CARTIA XT) Take 240 mg by 0 Active 240 MG Oral CAPSULE SR mouth. 24 HR busPIRone (BUSPAR) 10 Take 10 mg by 0 Active MG Oral Tab mouth THREE TIMES DAILY. acetaminophen (TYLENOL) Take 500 mg by 0 Active 500 MG Oral Tab mouth EVERY SIX HOURS NEEDED for Pain. zolpidem (AMBIEN) 10 MG Take 10 mg by 0 Active Oral Tab mouth EVERY BEDTIME NEEDED. Melatonin 3-10 MG Oral Take by mouth. 0 Active Tab Calcium Carbonate Take by mouth. 0 Active Antacid (TUMS PO) Prochlorperazine by Injection 0 Active Edisylate 50 MG/10ML route. Injection Solution tramadol-acetaminophen Take 1 Tab by 20 Tab 0 11/23/2018 11/28/2018 Active (ULTRACET) 37.5-325 MG mouth EVERY SIX Oral Tab HOURS NEEDED (back pain) for up to 5 days. Max Daily Amount: 4 Tabs. documented as of this encounter (statuses as of 11/23/2018) Active Problems Problem Noted Date Nonspecific abnormal unspecified cardiovascular function study 04/08/2005 documented as of this encounter (statuses as of 11/23/2018) Social History Tobacco Use Types Packs/Day Years Used Date Former Smoker Smokeless Tobacco: Never Used Sex Assigned at Date Recorded Not on file Job Start Date Occupation Industry Not on file Not on file Not on file Travel History Travel Start Travel End No recent travel history available. documented as of this encounter Last Filed Vital Signs Vital Sign Reading Time Taken Comments Blood Pressure 131/60 11/23/2018 10:26 AM EDT Pulse 61 11/23/2018 10:26 AM EDT Temperature - - Respiratory Rate - - Oxygen Saturation - - Inhaled Oxygen Concentration - - Weight 78 kg (172 lb) 11/23/2018 10:26 AM EDT Height 165.1 cm (5' 5") 11/23/2018 10:26 AM EDT Body Mass Index 28.62 11/23/2018 10:26 AM EDT documented in this encounter Progress Notes Deuce Robbins MD - 11/23/2018 10:30 AM EDT Name: Roberta Botello : 1935 Date of Service: 11/23/2018 Referring Provider: Deana Monroe Primary Care Provider: Etienne Wong (Inactive) Chief Complaint Patient presents with New Patient Low back pain. Patient reports low back pain for many years. Patient has had surgery on her lower back. Patient has gone to PT. History reviewed. No pertinent past medical history. Past Surgical History: Procedure Laterality Date ND FEMUR/KNEE SURG UNLISTED No current outpatient medications on file. No current facility-administered medications for this visit. Allergies not on file Social History Socioeconomic History Marital status: Spouse name: Not on file Number of children: Not on file Years of education: Not on file Highest education level: Not on file Occupational History Not on file Social Needs Financial resource strain: Not on file Food insecurity: Worry: Not on file Inability: Not on file Transportation needs: Medical: Not on file Non-medical: Not on file Tobacco Use Smoking status: Former Smoker Smokeless tobacco: Never Used Substance and Sexual Activity Alcohol use: Not on file Drug use: Not on file Sexual activity: Not on file Lifestyle Physical activity: Days per week: Not on file Minutes per session: Not on file Stress: Not on file Relationships Social connections: Talks on phone: Not on file Gets together: Not on file Attends shinto service: Not on file Active member of club or organization: Not on file Attends meetings of clubs or organizations: Not on file Relationship status: Not on file Intimate partner violence: Fear of current or ex partner: Not on file Emotionally abused: Not on file Physically abused: Not on file Forced sexual activity: Not on file Other Topics Concern Not on file Social History Narrative Not on file History reviewed. No pertinent family history. ROS: Review of systems intake completed by clinical staff. I have reviewed and agree with their documentation. 83-year-old woman with chronic low back pain and established diagnosis of spinal stenosis presents with increasing left-sided low back pain with associated groin pain and proximal leg pain. 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 This was done on testing in [place] so I do not have any results. I reviewed the chart as well as imaging from [facility]. She had an MRI in 2017 which showed spondylosis and multiple level spinal stenosis. She had a L4-5 laminectomy approximately 2-1/[address] [facility] but this did not help. No lower leg radicular symptoms. Has had physical therapy and different medications without relief. She is seen by Deena, the PA Dr Sanchez , who is aware of the apparent tumor and she has a follow-up appointment in 5 days. She has an ultrasound ordered but is not quite sure of exact which region is going to be studied. She also has has some left flank area type pain which is new in onset. She has had the spinalstenosis symptoms chronically but just in the last month or so has developed the groin and proximal leg symptoms. No help from hydrocodone. Physical exam shows a healthy-appearing woman in no acute distress. Alert and oriented. Walks and some lumbar flexion. No point tenderness of the lumbar spine or flank. Hip range of motion is limited and causes groin pain on forced internal rotation which is somewhat similar to the current pain she presents with. Straight leg raising is negative. Grossly no focal motor or sensory abnormalities. X-rays of lumbar spine show severe spondylosis/discogenic disease/physical degenerative scoliosis. X-rays of the hip show degenerative arthritis. Discussion: Need to differentiate between whether the pain is primarily from the hip arthritis or primarily from radiculopathy from her spinal stenosis. Patient has seen Brian with Dr. Lazaro and mri pending as well as f/u appointment to discuss. Recommend hip injection under fluoroscopy or ultrasound to help determine to what extent current pain is from hip versus spine. Patient and her had knee replacement from Dr. Garza and they will see if they can get into see her. Otherwise, Dr. Vasques can see her here in about 10 days. Theywould like to get the hip injected prior to her appointment at Dr. Lazaro's office. After all this is sorted out, if indicated, I can do her epidurals. Impression: No diagnosis found. Author: Deuce Robbins MD 11/23/2018 10:51 This record contains sections created with voice recognition software. It has been electronically signed. A reasonable attempt at proofreading has been made. Please call with any questions or corrections. documented in this encounter Plan of Treatment Name Type Priority Associated Diagnoses Order Schedule REFER TO ORTHOPEDICS Referral Routine Primary osteoarthritis of Expected: left hip 11/23/2018, Expires: 11/24/2019 Health Maintenance Due Date Last Done Comments MEDICARE ANNUAL WELLNESS VISIT 1935 DEPRESSION SCREENING 1946 HIV SCREENING 1949 ZOSTER IMMUNIZATION SERIES (1 of 2) 02/12/1984 FALL RISK ASSESSMENT 1999 PNEUMOCOCCAL 65+YRS (1 of 2 - 1999 PCV13) INFLUENZA VACCINE (#1) 2018 HPV IMMUNIZATION SERIES Aged Out No longer eligible based on patient's age to complete this topic MENINGOCOCCAL VACCINE IMM Aged Out No longer eligible based on patient's age to complete this topic documented as of this encounter Results Not on filedocumented in this encounter Visit Diagnoses Diagnosis Primary osteoarthritis of left hip - Primary Primary localized osteoarthrosis, pelvic region and thigh documented in this encounter Insurance Payer Benefit Plan / Subscriber ID Effective Dates Phone Address Type Group MEDICARE MEDICARE PART A xxxxxxxxxxx 1999-Present Medicare & B [facility] xxxxxxxxxxx 2018-Present [facility] OPT[employer] Guarantor Name Account Type Relation to Date of Phone Billing Patient Address Roberta Botello Personal/Family 1935 [address] (Home) [place], [place] [phone] [id number] (Work) documented as of this encounter
--- OUTSIDE RECORDS SUMMARY | 2018-12-30 08:52 | XMS REPORT | Continuity of Care Document ---
:1935 External Reference #:[id number] Author Name Cyndi Garza M.D. (transmitted by agent of provider Obdulio Delgadillo) Address [address] [place] [address] [place] [address] Care Team Providers Name Role Phone Rubin Sanchez MD - Internal Care Team Information Inspector [employer] Products [phone] Medicine Problems Active Problems Provider Date Polymyalgia rheumatica Tiago Rehman M.D. Onset: 06/14/2013 Immunological Findings Nonspecified Other Tiago Rehman M.D. Onset: 2013 & Unspecified Spinal stenosis of lumbar region Tiago Rehman M.D. Onset: 06/14/2013 Blood chemistry abnormal Tiago Rehman M.D. Onset: 08/24/2013 Common variable agammaglobulinemia Tiago Rehman M.D. Onset: 08/24/2013 Lumbosacral spondylosis without Tiago Rehman M.D. Onset: 11/10/2013 myelopathy Acute frontal sinusitis Tiago Rehman M.D. Onset: 02/14/2014 Convalescence after surgery Soto Martell M.D. Onset: 05/04/2016 Localized, primary osteoarthritis Cyndi Garza M.D. Onset: 08/06/2017 Essential hypertension Echo Gore N.P. Onset: 09/14/2017 Hypothyroidism Echo Gore N.P. Onset: 09/14/2017 Arthroplasty of knee Echo Gore N.P. Onset: 09/14/2017 Chronic kidney disease stage 3 Dorie Ann NP Onset: 09/15/2017 Anemia of chronic renal failure Dorie Ann NP Onset: 09/15/2017 Localized, primary osteoarthritis of the Cyndi Garza M.D. Onset: 11/25/2018 pelvic region and thigh Social History Type Date Description Comments Sex Unknown ETOH Use Drinks Alcoholic Beverages Rarely Tobacco Use Start: Unknown End: Patient is a former quit at age 63 Unknown smoker Recreational Drug Use Denies Drug Use Smoking Status Reviewed: 12/14/18 Patient is a former quit at age 63 smoker Exercise Type/Frequency Exercises sporadically Allergies, Adverse Reactions, Alerts Active Allergies Reaction Severity Comments Date lisinopril 03/18/2005 Hydrocodone 03/18/2005 Niaspan 06/29/2005 Betablockers extreme fatigue 01/19/2006 Pravastatin 08/06/2017 Azithromycin 08/06/2017 Medications Active Medications SIG Qnty Indications Ordering Date Provider Amoxicillin take 4 pills, 2 4caps Cyndi Garza 12/24/2017 500mg Capsules g 1 hour before M.DKevin dental or gi procedure Levothroid 1 po qd Qutaybjanusz S. 01/19/2006 100mcg Tablets Yin Howe Losartan Potassium 1 po bid 90tabs Unknown 50mg Tablets Cartia XT 1 by mouth every 90caps Unknown 240mg Caps ER 24HR day Tums as needed Unknown 500mg Chewtabs Clonazepam 1 by mouth twice Unknown 0.5mg Tablets a day as needed Zolpidem Tartrate 1 tab by mouth Unknown 10mg every night at Tablets bedtime as needed mdd 1 Omeprazole 1 by mouth every Unknown 20mg Capsules DR day Vitamin D Unknown Aspirin 81 Low Dose 1 by mouth every Unknown day Prochlorperazine 1/2 tablet Unknown 50mg Tylenol Unknown Betamethasone Valerate Unknown 0.1% Ointment Medications Administered in Office Medication SIG Qnty Indications Ordering Provider Date Depomedrol 40MG Cyndi Garza M.D. 11/25/2018 Injection Immunizations Description No Information Available Vital Signs Date Vital Result Comment 12/14/2018 10:54am Height 64 inches 5'4" Weight 175.00 lb Heart Rate 64 /min BP Systolic 138 mmHg BP Diastolic 80 mmHg Respiratory Rate 18 /min Body Temperature 97.8 F Pain Level 7 BMI (Body Mass Index) 30.0 kg/m2 11/25/2018 11:10am Height 64 inches 5'4" Weight 175.00 lb BP Systolic 140 mmHg BP Diastolic 80 mmHg Respiratory Rate 15 /min Body Temperature 97.3 F Pain Level 10 BMI (Body Mass Index) 30.0 kg/m2 Results Test Date Facility Test Result H/L Range Note Xray 11/25/2018 [facility] House Inj/Aspir Major JT Or Bursa W/ <pending> US Procedures Date Code Description Status 11/25/2018 [id number] Inj/Aspir Major JT Or Bursa W/ US Completed 08/02/2018 [id number] Endoscopy Upper GI Biopsy Completed 01/13/2011 [id number] Colonoscopy Completed 11/17/2005 [id number] Colonoscopy Completed 02/23/2000 [id number] Colonoscopy Completed Medical Devices Description No Information Available Encounters Type Date Location Provider Dx Diagnosis Office Visit 11/25/2018 [facility]opedic Cyndi Garza, M25.552 Pain in left hip 10:45a [facility] M16.12 Unilateral primary osteoarthritis, left hip Z96.651 Presence of right artificial knee [facility] 8:45a Asschase cabello M.D.,[facility] Hospitalists E87.1 Hypo-osmolality and hyponatremia N18.3 Chronic kidney disease, stage 3 (moderate) R63.4 Abnormal weight loss [facility] Epig[facility] pain 8:45a chase Lowe M.D.,[facility] Hospitalists E87.1 Hypo-osmolality and hyponatremia K27.9 Peptic ulc, site unsp, unsp as ac or chr, w/o hemor or perf Office Visit 07/31/2018 8:45a [facility] Brooke Dill, N17.9 Acute kidney Assoc,chase [facility] failure, Hospitalists unspecified R10.13 Epigastric pain N18.3 Chronic kidney disease, stage 3 (moderate) E87.1 Hypo-osmolality and hyponatremia Office Visit 07/12/2018 11:10a [facility] Richard, L82.1 Other seborrheic Montrell [facility] keratosis D48.5 Neoplasm of uncertain behavior of skin B35.4 Tinea corporis B35.1 Tinea unguium Z85.828 Personal history of other malignant neoplasm of skin Z08 Encntr for follow-up exam after trtmt for malignant neoplasm Z85.820 Personal history of malignant melanoma of skin Assessments Date Code Description Provider 12/14/2018 M25.552 Pain in left hip Cyndi Garza M.D. 12/14/2018 M16.12 Unilateral primary osteoarthritis, Cyndi Garza M.D. left hip 11/25/2018 M25.552 Pain in left hip Cyndi Garza M.D. 11/25/2018 M16.12 Unilateral primary osteoarthritis, Cyndi Garza M.D. left hip 11/25/2018 Z96.651 Presence of right artificial knee Cyndi Garza M.D. joint 08/02/2018 K31.7 Polyp of stomach and duodenum Lopez Smart MD 08/02/2018 R10.13 Epigastric pain Ronald Yanez M.D.,[facility] 08/02/2018 R63.4 Abnormal weight loss Lopez Smart MD 08/02/2018 E87.1 Hypo-osmolality and hyponatremia Ronald Yanez M.D., [facility] 08/02/2018 R10.13 Epigastric pain Lopez Smart MD 08/02/2018 N18.3 Chronic kidney disease, stage 3 Ronald Yanez M.D., FACP (moderate) 08/02/2018 R63.4 Abnormal weight loss Ronald Yanez M.D.,[facility] 08/01/2018 R10.13 Epigastric pain Ronald [facility]z M.D.,[facility] 08/01/2018 E87.1 Hypo-osmolality and hyponatremia Ronald Yanez M.D., [facility] 08/01/2018 K27.9 Peptic ulc, site unsp, unsp as ac or Ronald Yanez M.D.,[facility] chr, w/o hemor or perf 07/31/2018 N17.9 Acute kidney failure, unspecified Brooke Murphy MD 07/31/2018 R10.13 Epigastric pain Brooke Murphy MD 07/31/2018 N18.3 Chronic kidney disease, stage 3 Brooke Murphy MD (moderate) 07/31/2018 E87.1 Hypo-osmolality and hyponatremia Brooke Murphy MD 07/12/2018 L82.1 Other seborrheic keratosis Epi Richard MD 07/12/2018 D48.5 Neoplasm of uncertain behavior of Epi Richard MD skin 07/12/2018 B35.4 Tinea corporis Epi Richard MD 07/12/2018 B35.1 Tinea unguium Epi Richard MD 07/12/2018 Z85.828 Personal history of other malignant Epi Richard MD neoplasm of skin 07/12/2018 Z08 Encounter for follow-up examination Epi Richard MD after completed treatmen 07/12/2018 Z85.820 Personal history of malignant Epi Richard MD melanoma of skin Plan of Treatment Future Appointment(s):04/17/2019 9:00 am - Epi Richard MD at [facility] Ntbrvpwsyin36/11/2019 - Cyndi Garza M.D.M25.552 Pain in left hipFollow up: Follow up: 7-10 days before wsnchkaJ13.12 Unilateral primary osteoarthritis, left hip Functional Status Description No Information Available Mental Status Description No Information Available Referrals Description No Information Available
--- OUTSIDE RECORDS SUMMARY | 2018-12-30 08:52 | XMS REPORT | Continuity of Care Document ---
:1935 External Reference #:[id number] Author Name Roseann Benitez (transmitted by agent of provider Radha Hughes) Address [address] [place] [address] Care Team Providers Name Role Phone Daryn Osuna MD - Dermatology Care Team Information Clearing Hand Eli Oneill MD - Cardiovascular Care Team Information Clearing Hand [phone] Disease [facility] - Neurological Surgery Care Team Information Clearing Hand [phone] Pain [facility] - Pain Medicine Care Team Information Clearing Hand [phone] Joshua Jaramillo MD - Nephrology Care Team Information Clearing Hand [facility] - Care Team Information Clearing Hand [phone] Gastroenterology Tiago Rehman MD PhD - Rheumatology Care Team Information Clearing Hand Soto Martell MD - Neurological Care Team Information Clearing Hand Surgery HCP/LW on file Care Team Information Clearing Hand Unavailable Cyndi Garza MD - Orthopaedic Care Team Information Clearing Hand Surgery Eugenio Lazaro MD Facs - Neurological Care Team Information Clearing Hand Surgery Problems Active Problems Provider Date Benign essential hypertension Mamadou Munoz M.D. Onset: 05/31/2003 History of malignant melanoma of the skin Mamadou Munoz M.D. Onset: Benign neoplasm of colon Mamadou Munoz M.D. Onset: 05/31/2003 Palpitations Mamadou Munoz M.D. Onset: 10/30/2003 Hypothyroidism Mamadou Munoz M.D. Onset: 10/30/2003 Gastroesophageal reflux disease Mamadou Munoz M.D. Onset: 01/01/2004 Mixed hyperlipidemia Mamadou Munoz M.D. Onset: 02/04/2004 Senile osteoporosis Mamadou Munoz M.D. Onset: 10/14/2004 Obesity Mamadou Munoz M.D. Onset: 10/14/2004 Essential hypertension Miguelina Byrne MD Onset: 11/09/2006 Osteoporosis Miguelina Byrne MD Onset: 11/09/2006 Impaired fasting glycaemia Rhonda Alvarado MD Onset: 11/05/2009 Anxiety state Rhonda Alvarado MD Onset: 02/05/2011 Myalgia & Myositis Unspecified Rhonda Alvarado MD Onset: 05/14/2011 Polymyalgia rheumatica Rhonda Alvarado MD Onset: 06/18/2011 Pure hypercholesterolemia Rhonda Alvarado MD Onset: 02/17/2012 Backache Rhonda Alvarado MD Onset: 02/17/2012 Chronic rhinitis Rhonda Alvarado MD Onset: 04/19/2012 Acute maxillary sinusitis Josue Quinonez D.O. Onset: 03/31/2013 Renal failure syndrome Rhonda Alvarado MD Onset: 06/13/2014 Difficulty speaking Rhonda Alvarado MD Onset: 09/11/2014 Elongated styloid process syndrome Rubin Sanchez M.D. Onset: 01/11/2015 Cough Josue Quinonez D.O. Onset: 08/07/2015 Chronic kidney disease stage 3 Rubin Sanchez M.D. Onset: 10/14/2015 Spinal stenosis of lumbar region Laney Woodard PA Onset: 04/22/2016 Anemia Laney Woodard PA Onset: 04/22/2016 Lumbar spondylosis Josue Quinonez D.OKevin Onset: 11/02/2016 Uterine leiomyoma Roseann Benitez Onset: 11/17/2018 Arthralgia of the pelvic region and thigh Roseann Benitez Onset: 2018 Low back pain Roseann Benitez Onset: 11/17/2018 Social History Type Date Description Comments Sex Unknown Tobacco Use Reviewed: 01/11/15 Denies Cigarette Use Pt is a former smoker, quite about 1996. Smoking Status Reviewed: 07/22/18 Denies Cigarette Use Pt is a former smoker , quite about 1996. Tobacco Use Start: Unknown Non Smoker / No Tobacco Tobacco Use Start: Unknown End: Patient is a former smoker stopped over 20 yrs Unknown ago Allergies, Adverse Reactions, Alerts Active Allergies Reaction Severity Comments Date Hydrocodone 03/13/2003 Lisinopril legs swelled 09/04/2003 Statins 05/04/2012 Niaspan 05/04/2012 Cardizem CD 05/04/2012 Beta Adrenergic Blockers 05/04/2012 Clonidine 05/04/2012 Spironolactone Low Sodium Level 06/07/2017 Azithromycin 06/07/2017 Doxazosin 06/07/2017 Augmentin 06/15/2017 Hydrochlorothiazide Hyponatremia 09/26/2018 Medications Active Medications SIG Qnty Indications Ordering Date Provider Melatonin 1 or 2 by mouth Unknown 09/25/2018 3mg Capsules every night as needed for sleep Omeprazole take one capsule 90caps K21.9 Rubin Sanchez, 09/25/2018 20mg Capsules by mouth every M.D. DR rhett for acid reflux Levothyroxine Sodium take 1 tablet by 90tabs E03.9 Rubin Sanchez, 2018 mouth every M.D. 100mcg Tablets morning on an empty stomach Losartan Potassium take 1 tablet 90tabs I10 Rubin Sanchez, 08/24/2018 100mg daily in the M.D. Tablets morning for high blood pressure Zolpidem Tartrate take 1/2 tablet G47.00 Rubin Sanchez, 08/09/2018 10mg by mouth at M.D. Tablets bedtime if needed for sleep G47.9 Ondansetron HCL 1 tab by mouth every 8 30tabs R11.0 Rubin Sanchez, 07/27 4mg hours as needed for M.D. Tablets nausea Ventolin HFA inhale 2 puffs by 16gm Josue Quinonez, 07/22/2018 mouth every 4 hours as D.O. 108(90Base) mcg/Act needed for Aerosol bronchospasm Buspirone HCL 1 twice a day for 60tabs F41.9 Rubin Sanchez, 06/20/2018 5mg anxiety M.D. Tablets Fluticasone two sprays (50 16gm J01.90 Rubin Sanchez, 09/06/2017 Propionate mcg/spray) per nostril M.D. 50mcg/Act once daily (can also Suspension try one spray per nostril bid) for allergies H69.90 Cartia XT take one capsule by 90caps I10 Rubin Sanchez, 06/25/2017 180mg Caps ER mouth every day M.D. 24HR Tylenol Extra Strength take 2 tablets by Unknown 01/25/2017 mouth up to every 4 500mg Tablets hours, no more than 4 doses/24hrs Clonazepam take one-half to 30tabs F41.9 Rubin Sanchez, 09/11/2014 0.5mg Tablets one tabelt by mouth M.D. two times a day as needed for anxiety maximum daily dose = two tablets Tums 2-3 q amira for 40units Unknown 03/02/2011 500mg Chewtabs calcium History Medications Levothyroxine Sodium Take One Tablet 90tabs E03.9 Rubin Sanchez, 2018 - By Mouth Every M.D. 09/19/2018 88mcg Tablets Day Levothyroxine Sodium take 1 tablet by E03.9 Rubin Sanchez, 08/08/2018 - mouth every M.D. 09/19/2018 100mcg Tablets morning on an empty stomach Omeprazole 1 by mouth twice K21.9 Unknown 08/02/2018 - 20mg Capsules daily for 1 09/25/2018 DR month and then return to 20 mg daily Sulfamethoxazole/Trime 1 by mouth twice 20tabs R05 Josue Quinonez, 2018 - thoprim DS a day D.O. 07/27/2018 800-160mg Tablets J18.9 Terbinafine HCL 1 tablet by Epi Richard, 07/12/2018 - 250mg Tablets mouth daily for 07/17/2018 3 months Imiquimod Apply Once Epi Richard, 07/12/2018 - 5% Cream Daily To Right 11/16/2018 Cheek 5 Days Out Of The Week For 1 Month Hydrochlorothiazide 1 tab by mouth 30caps I10 Laura, 07/04/2018 - 12.5mg every morning Yin Conklin 08/08/2018 Capsules for high blood pressure Levothyroxine Sodium take 1 tablet 90tabs E03.9 Sopagil, 06/03/2018 - 88mcg by mouth every Josue, D.OKevin 08/08/2018 Tablets day for thyroid Iron Take One Tablet 90tabs Z13.820 Laura, 05/30/2018 - 325(65Fe) mg Tablets By Mouth Every Yin Conklin 08/02/2018 Day For Anemia Medications Administered in Office Medication SIG Qnty Indications Ordering Provider Date injection, kenalog, 10 mg Rubin Sanchez M.D. 09/04/2015 Injection H1N1 Swine Flu Vaccine Nurse's Schedule 04/09/2009 Injection injection, kenalog, 10 mg Mamadou Munoz M.D. 01/26/2008 Injection Immunizations CPT Code Status Date Vaccine Lot # [id number] Given 12/02/2017 Influenza Vaccine Split Virus Preservative Free Im [id number] Use 04106 Given 12/25/2016 Influenza Vaccine Split Virus Preservative Free Im [id number] Use 35054 Given 12/24/2014 Influenza Vaccine Split Virus Preservative [place] Use 43852 Given 09/11/2014 Adacel or Boostrix, TDaP [id number] 64385 Given 08/03/2014 Prevnar 13 [id number] 91201 Given 12/23/2013 Influenza Vaccine Split Virus Preservative Free [place] Use 64269 Given 01/04/2013 Flu, Split Virus 3Yrs [id number] 97873 Given 02/08/2012 Flu, Split Virus 3Yrs [id number] 99605 Given 12/25/2009 Flu, Split Virus 3Yrs [id number] 86075 Given 01/04/2007 Flu, Split Virus 3Yrs [id number] 20605 Given 11/09/2006 Zostavax [id number] 72509 Given 01/22/2006 Flu, Split Virus 3Yrs [id number] 81259 Given 01/15/2005 Flu, Split Virus 3Yrs 05928 Given 10/14/2004 Td Immunization 29689 Given 01/01/2004 Flu, Split Virus 3Yrs 41249 Given 03/12/2003 Flu, Split Virus 3Yrs 24282 Given 02/17/1999 Pneumococcal Immunization 36157 Given Unknown Flu, Split Virus 3Yrs Vital Signs Date Vital Result Comment 11/17/2018 12:03pm BP Systolic 210 mmHg BP Diastolic 90 mmHg BP Systolic Recheck 210 mmHg BP Diastolic Recheck 90 mmHg BP Systolic Standing Resting Right Arm 210 mmHg BP Diastolic Standing Resting Right Arm 100 mmHg Heart Rate 76 /min Weight 174.00 lb 09/26/2018 9:47am BP Systolic 146 mmHg BP Diastolic 68 mmHg BP Systolic Recheck 160 mmHg R arm sitting BP Diastolic Recheck 66 mmHg R arm sitting Heart Rate 60 /min reg Weight 177.00 lb Results Test Date Facility Test Result H/L Range Note CBC Auto Diff 11/17/2018 [facility] White Blood 11.7 10^3/uL High 3.5 -10.8 [phone] Count Red Blood Count 4.39 10^6/uL Normal 3.70-4.87 Hemoglobin 12.7 g/dL Normal 12.0-16.0 Hematocrit 39 % Normal 35-47 Mean Corpuscular Volume 88 fL Normal 80-97 Mean Corpuscular Hemoglobin 29 pg Normal 27-31 Mean Corpuscular HGB Conc 33 g/dL Normal 31-36 Red Cell Distribution Width 15 % Normal 10-15 Platelet Count 311 10^3/uL Normal 150-450 Mean Platelet Volume 6.5 fL Low 7.4-10.4 Abs Neutrophils 7.0 10^3/uL Normal 1.5-7.7 Abs Lymphocytes 3.3 10^3/uL Normal 1.0-4.8 Abs Monocytes 1.2 10^3/uL High 0-0.8 Abs Eosinophils 0.1 10^3/uL Normal 0-0.6 Abs Basophils 0.1 10^3/uL Normal 0-0.2 Abs Nucleated RBC 0.0 10^3/uL Granulocyte % 59.8 % Lymphocyte % 28.5 % Monocyte % 9.9 % Eosinophil % 0.9 % Basophil % 0.9 % Nucleated Red Blood Cells % 0.0 Comp Metabolic Panel 11/17/2018 [facility] Sodium 136 mmol/L Normal 135-145 [phone] Potassium 4.0 mmol/L Normal 3.5-5.0 Chloride 101 mmol/L Normal 101-111 Co2 Carbon Dioxide 25 mmol/L Normal 22-32 Anion Gap 10 mmol/L Normal 2-11 Glucose 117 mg/dL High 70-100 Blood Urea Nitrogen 20 mg/dL Normal 6-24 Creatinine 1.37 mg/dL High 0.51-0.95 BUN/Creatinine Ratio 14.6 Normal 8-20 Calcium 10.2 mg/dL Normal 8.6-10.3 Total Protein 7.4 g/dL Normal 6.4-8.9 Albumin 4.3 g/dL Normal 3.2-5.2 Globulin 3.1 g/dL Normal 2-4 Albumin/Globulin Ratio 1.4 Normal 1-3 Total Bilirubin 0.60 mg/dL Normal 0.2-1.0 Alkaline Phosphatase 72 U/L Normal 34-104 Alt 17 U/L Normal 7-52 Ast 18 U/L Normal 13-39 Egfr Non- 36.7 >60 Egfr 44.4 >60 1 Laboratory test 11/17/2018 [facility] B-Type Natriuretic 60 pg/mL <= 100 finding [phone] Peptide BNP Lactic Acid 0.7 mmol/L Normal 0.5-2.0 2 Basic Metabolic Panel 09/21/2018 [facility] Sodium 142 mmol/L Normal 135-145 [phone] Potassium 4.7 mmol/L Normal 3.5-5.0 Chloride 105 mmol/L Normal 101-111 Co2 Carbon Dioxide 28 mmol/L Normal 22-32 Anion Gap 9 mmol/L Normal 2-11 Glucose 108 mg/dL High 70-100 Blood Urea Nitrogen 21 mg/dL Normal 6-24 Creatinine 1.28 mg/dL High 0.51-0.95 BUN/Creatinine Ratio 16.4 Normal 8-20 Calcium 9.9 mg/dL Normal 8.6-10.3 Egfr Non- 39.7 >60 Egfr 48.1 >60 3 Laboratory test 09/21/2018 [facility] TSH (Thyroid 1.63 mcIU/mL Normal 0.34-5.60 finding [phone] Stim Horm) Basic Metabolic 08/17/2018 [facility] Sodium 140 mmol/L Normal 135- 145 Panel [phone] Potassium 4.7 mmol/L Normal 3.5-5.0 Chloride 105 mmol/L Normal 101-111 Co2 Carbon Dioxide 27 mmol/L Normal 22-32 Anion Gap 8 mmol/L Normal 2-11 Glucose 133 mg/dL High 70-100 Blood Urea Nitrogen 20 mg/dL Normal 6-24 Creatinine 1.22 mg/dL High 0.51-0.95 BUN/Creatinine Ratio 16.4 Normal 8-20 Calcium 9.6 mg/dL Normal 8.6-10.3 Egfr Non- 42.0 >60 Egfr 50.8 >60 4 Basic Metabolic Panel 08/01/2018 [facility] Sodium 122 mmol/L Low 135 -145 [phone] Potassium 3.7 mmol/L Normal 3.5-5.0 Chloride 91 mmol/L Low 101-111 Co2 Carbon Dioxide 22 mmol/L Normal 22-32 Anion Gap 9 mmol/L Normal 2-11 Glucose 91 mg/dL Normal 70-100 Blood Urea Nitrogen 18 mg/dL Normal 6-24 Creatinine 1.45 mg/dL High 0.51-0.95 BUN/Creatinine Ratio 12.4 Normal 8-20 Calcium 8.8 mg/dL Normal 8.6-10.3 Egfr Non- 34.4 >60 Egfr 41.6 >60 5 Urine Culture And 07/31/2018 [facility] Urine Culture SEE RESULT 6 Sensitivities [phone] BELOW Laboratory test 07/31/2018 [facility] TSH (Thyroid 22.37 High 0.34-5 finding [phone] Stim Horm) mcIU/mL .60 Urinalysis Profile 07/31/2018 [facility] Urine Color Straw [phone] Urine Appearance Clear Urine Specific [place] 1.003 Low 1.010-1.030 Urine pH 6.0 Normal 5-9 Urine Urobilinogen Negative Negative Urine Ketones Negative Negative Urine Protein Negative Negative Urine Leukocytes Trace Abnormal Negative Urine Blood Negative Negative Urine Nitrite Negative Negative Urine Bilirubin Negative Negative Urine Glucose Negative Negative Urine White Blood Cell Trace(0-5/hpf) Absent Urine Red Blood Cell Absent Absent Urine Bacteria Absent Absent Urine Squamous Epithelial Cell Present Abnormal Absent CBC Auto Diff 07/31/2018 [facility] White Blood 15.6 10^3/uL High 3.5 -10.8 [phone] Count Red Blood Count 4.63 10^6/uL Normal 3.70-4.87 Hemoglobin 13.6 g/dL Normal 12.0-16.0 Hematocrit 41 % Normal 33-41 Mean Corpuscular Volume 87 fL Normal 80-97 Mean Corpuscular Hemoglobin 29 pg Normal 27-31 Mean Corpuscular HGB Conc 34 g/dL Normal 31-36 Red Cell Distribution Width 14 % Normal 10.5-15 Platelet Count 325 10^3/uL Normal 150-450 Mean Platelet Volume 6.3 fL Low 7.4-10.4 Abs Neutrophils 9.2 10^3/uL High 1.5-7.7 Abs Lymphocytes 4.6 10^3/uL Normal 1.0-4.8 Abs Monocytes 1.6 10^3/uL High 0-0.8 Abs Eosinophils 0.1 10^3/uL Normal 0-0.6 Abs Basophils 0.1 10^3/uL Normal 0-0.2 Abs Nucleated RBC 0 10^3/uL Granulocyte % 58.6 % Lymphocyte % 29.5 % Monocyte % 10.0 % Eosinophil % 1.0 % Basophil % 0.9 % Nucleated Red Blood Cells % 0.1 Laboratory test 07/31/2018 [facility] Lipase 78 U/L Normal 11.0-82.0 finding [phone] Comp Metabolic 07/31/2018 [facility] Potassium 4.0 mmol/L Normal 3.5- 5.0 Panel [phone] Chloride 86 mmol/L Low 101-111 Co2 Carbon Dioxide 24 mmol/L Normal 22-32 Glucose 100 mg/dL Normal 70-100 Blood Urea Nitrogen 20 mg/dL Normal 6-24 Creatinine 1.61 mg/dL High 0.51-0.95 BUN/Creatinine Ratio 12.4 Normal 8-20 Calcium 9.5 mg/dL Normal 8.6-10.3 Total Protein 7.2 g/dL Normal 6.4-8.9 Albumin 4.6 g/dL Normal 3.2-5.2 Globulin 2.6 g/dL Normal 2-4 Albumin/Globulin Ratio 1.8 Normal 1-3 Total Bilirubin 0.50 mg/dL Normal 0.2-1.0 Alkaline Phosphatase 71 U/L Normal 34-104 Alt 14 U/L Normal 7-52 Ast 18 U/L Normal 13-39 Egfr Non- 30.5 >60 Egfr 36.9 >60 7 Sodium 119 mmol/L Critical low 135-145 8 Anion Gap 9 mmol/L Normal 2-11 Laboratory test 07/31/2018 [facility] Lactic Acid 0.6 mmol/L Normal 0.5-2.0 9 finding [phone] Comp Metabolic 06/28/2018 [facility] Sodium 139 mmol/L Normal 135- 145 Panel [phone] Potassium 4.7 mmol/L Normal 3.5-5.0 Chloride 102 mmol/L Normal 101-111 Co2 Carbon Dioxide 31 mmol/L Normal 22-32 Anion Gap 6 mmol/L Normal 2-11 Glucose 98 mg/dL Normal 70-100 Blood Urea Nitrogen 21 mg/dL Normal 6-24 Creatinine 1.48 mg/dL High 0.51-0.95 BUN/Creatinine Ratio 14.2 Normal 8-20 Calcium 9.9 mg/dL Normal 8.6-10.3 Total Protein 6.4 g/dL Normal 6.4-8.9 Albumin 4.1 g/dL Normal 3.2-5.2 Globulin 2.3 g/dL Normal 2-4 Albumin/Globulin Ratio 1.8 Normal 1-3 Total Bilirubin 0.40 mg/dL Normal 0.2-1.0 Alkaline Phosphatase 64 U/L Normal 34-104 Alt 13 U/L Normal 7-52 Ast 15 U/L Normal 13-39 Egfr Non- 33.6 >60 Egfr 40.7 >60 10 Laboratory test 06/07/2018 [facility] Hemoglobin A1c 6.0 % High 4.0- 5.6 11 finding [phone] (Glyco HGB) CBC Auto Diff 06/07/2018 [facility] White Blood 12.3 High 3.5-10.8 [phone] Count 10^3/uL Red Blood Count 4.18 10^6/uL Normal 4.00-5.40 Hemoglobin 12.1 g/dL Normal 12.0-16.0 Hematocrit 37 % Normal 35-47 Mean Corpuscular Volume 89 fL Normal 80-97 Mean Corpuscular Hemoglobin 29 pg Normal 27-31 Mean Corpuscular HGB Conc 33 g/dL Normal 31-36 Red Cell Distribution Width 15 % Normal 10.5-15 Platelet Count 281 10^3/uL Normal 150-450 Mean Platelet Volume 7.5 fL Normal 7.4-10.4 Abs Neutrophils 6.7 10^3/uL Normal 1.5-7.7 Abs Lymphocytes 4.1 10^3/uL Normal 1.0-4.8 Abs Monocytes 1.2 10^3/uL High 0-0.8 Abs Eosinophils 0.2 10^3/uL Normal 0-0.6 Abs Basophils 0.1 10^3/uL Normal 0-0.2 Abs Nucleated RBC 0 10^3/uL Granulocyte % 54.6 % Lymphocyte % 32.9 % Monocyte % 9.7 % Eosinophil % 2.0 % Basophil % 0.8 % Nucleated Red Blood Cells % 0.1 Laboratory test finding 06/07/2018 [facility] Glucose 88 mg/dL Normal 70-100 [phone] Laboratory test finding 06/04/2018 In House Glucose 179 Hemoglobin 11.1 Order 06/04/2018 [facility] glucose, <pending> quantitative inhouse Order 06/04/2018 [facility] hemoglobin, <pending> inhouse Laboratory test 06/02/2018 [facility] TSH (Thyroid Stim 2.31 mcIU/mL Normal 0.34- finding [phone] Horm) 5.60 1 Because ethnic data is not always [...] 5 Kidney failure <15 (or dialysis) 2 [facility] Severe Sepsis and Septic Shock Management Bundle Measure requires all lactic acids initially measuring >2.0 mmol/L be repeated. 3 Because ethnic data is not always readily [...] 15-29 5 Kidney failure <15 (or dialysis) 4 Because ethnic data is not always [...] 5 Kidney failure <15 (or dialysis) 5 Because ethnic data is not always readily [...] 15-29 5 Kidney failure <15 (or dialysis) 6 SEE RESULT BELOW Name: LATONIA BOTELLO : [address]: Ifrah Yanez MD Acct: [id number] Unit: [id number] AGE: 83 Location: [place] [address] Re07/31/18 SEX: F Status: ADM IN SPEC: [id number] LACI: 07/31/[address]: Thomas Mahoney MD REQ: [id number] RECD: 07/31/18 STATUS: DENNYS HECTOR DR: Rubin Sanchez MD _ SOURCE: URINE SPDESC: ORDERED: Urine Culture Procedure Result Reported Site Urine Culture Final 08/01/18- 1609 ML No growth of clinically significant organisms * ML - Main Lab . END OF REPORT DEPARTMENT OF PATHOLOGY, [address] [place] [address] Luis Lott M.D. Director [facility] # [id number] 7 Because ethnic data is not always readily [...] 15-29 5 Kidney failure <15 (or dialysis) 8 Critical Result NA:119 Called to [id number] at: 20:41:53 by:[id number] Read back by:[id number] [facility] Severe Sepsis and Septic Shock Management Bundle Measure requires all lactic acids initially measuring >2.0 mmol/L be repeated. 10 Because ethnic data is not always readily [...] 15-29 5 Kidney failure <15 (or dialysis) 11 Therapeutic target for the treatment of diabetes mellitus patients is <7% HBA1C, and in selective patients <6.0%. Please refer to [place] [employer] diabetic care guidelines for further information. Procedures Date Code Description Status 11/17/2018 87488 Electrocardiogram Complete Completed 08/30/2018 [id number] Mammogram Completed 06/04/2018 63785 Electrocardiogram Complete Completed 01/03/2011 [id number] Colonoscopy Completed Medical Devices Description No Information Available Encounters Type Date Location Provider Dx Diagnosis Office Visit 11/17/2018 Main Office Deena Ortiz, D25.9 Leiomyoma of uterus, 11:40a P.A. unspecified I10 Essential (primary) hypertension R68.83 Chills (without fever) M25.552 Pain in left hip M54.5 Low back pain Office Visit 09/26/2018 9:30a Main Office Laura K21.9 Gastro- esophageal Yin Conklin reflux disease without esophagitis I10 Essential (primary) hypertension E03.9 Hypothyroidism, unspecified N18.3 Chronic kidney disease, stage 3 (moderate) R73.01 Impaired fasting glucose M48.062 Spinal stenosis, lumbar region with neurogenic claudication Office Visit 08/24/2018 3:45p Main Office Rubin Sanchez, I10 Essential (primary) M.D. hypertension E87.1 Hypo-osmolality and hyponatremia E03.9 Hypothyroidism, unspecified N18.3 Chronic kidney disease, stage 3 (moderate) Office Visit 08/09/2018 2:00p Main Office Rubin Sanchez R10.13 Epigastric pain M.D. R11.0 Nausea I10 Essential (primary) hypertension F41.9 Anxiety disorder, unspecified E03.9 Hypothyroidism, unspecified N18.3 Chronic kidney disease, stage 3 (moderate) E87.1 Hypo-osmolality and hyponatremia Office Visit 07/30/2018 11:30a Main Office Rubin Sanchez M.D. R11.0 Nausea I10 Essential (primary) hypertension F41.9 Anxiety disorder, unspecified E03.9 Hypothyroidism, unspecified B35.1 Tinea unguium Office Visit 07/27/2018 10:40a Main Office Laney Woodard PA R11.0 Nausea B35.1 Tinea unguium N18.3 Chronic kidney disease, stage 3 (moderate) I10 Essential (primary) hypertension Office Visit 07/22/2018 10:45a Main Office Josue Quinonez, J18.9 Pneumonia , D.O. unspecified organism R53.83 Other fatigue E03.9 Hypothyroidism, unspecified N18.3 Chronic kidney disease, stage 3 (moderate) Office Visit 07/04/2018 9:00a Main Office Deena Ortiz, F41.9 Anxiety disorder, P.A. unspecified I10 Essential (primary) hypertension I73.9 Peripheral vascular disease, unspecified R60.0 Localized edema Z79.899 Other long-term (current) drug therapy Office Visit 06/20/2018 9:20a Main Office Deena Ortiz, I10 Essential ( primary) P.A. hypertension F41.9 Anxiety disorder, unspecified G47.9 Sleep disorder, unspecified Office Visit 06/04/2018 11:15a Main Office Deena Ortiz, I10 Essential ( primary) P.A. hypertension F41.9 Anxiety disorder, unspecified R73.09 Other abnormal glucose D64.9 Anemia, unspecified R68.83 Chills (without fever) Assessments Date Code Description Provider 11/17/2018 D25.9 Leiomyoma of uterus, unspecified Deena Wyliele, P.A. 11/17/2018 I10 Essential (primary) hypertension Deena Ortiz, P.A. 11/17/2018 R68.83 Chills (without fever) Deena Ortiz, P.A. 11/17/2018 M25.552 Pain in left hip Deena Ortiz, P.A. 11/17/2018 M54.5 Low back pain Deena Ortiz, P.A. 09/26/2018 K21.9 Gastro-esophageal reflux disease without Rubin Sanchez M.D. esophagitis 09/26/2018 I10 Essential (primary) hypertension Rubin Sanchez M.D. 09/26/2018 E03.9 Hypothyroidism, unspecified Rubin Sanchez M.D. 09/26/2018 N18.3 Chronic kidney disease, stage 3 (moderate) Rubin Sanchez M.D. 09/26/2018 R73.01 Impaired fasting glucose Rubin Sanchez M.D. 09/26/2018 M48.062 Spinal stenosis, lumbar region with Rubin Sanchez M.D. neurogenic claudication 08/24/2018 I10 Essential (primary) hypertension Rubin Sanchez M.D. 08/24/2018 E87.1 Hypo-osmolality and hyponatremia Rubin Sanchez M.D. 08/24/2018 E03.9 Hypothyroidism, unspecified Rubin Sanchez M.D. 08/24/2018 N18.3 Chronic kidney disease, stage 3 (moderate) Rubin Sanchez M.D. 08/09/2018 R10.13 Epigastric pain Rubin Sanchez M.D. 08/09/2018 R11.0 Nausea Rubin Sanchez M.D. 08/09/2018 I10 Essential (primary) hypertension Rubin Sanchez M.D. 08/09/2018 F41.9 Anxiety disorder, unspecified Rubin Sanchez M.D. 08/09/2018 E03.9 Hypothyroidism, unspecified Rubin Sanchez M.D. 08/09/2018 N18.3 Chronic kidney disease, stage 3 (moderate) Rubin Sanchez M.D. 08/09/2018 E87.1 Hypo-osmolality and hyponatremia Rubin Sanchez M.D. 07/30/2018 R11.0 Nausea Rubin Sanchez M.D. 07/30/2018 I10 Essential (primary) hypertension Rubin Sanchez M.D. 07/30/2018 F41.9 Anxiety disorder, unspecified Rubin Sanchez M.D. 07/30/2018 E03.9 Hypothyroidism, unspecified Rubin Sanchez M.D. 07/30/2018 B35.1 Tinea unguium Rubin Sanchez M.D. 07/27/2018 R11.0 Nausea Laney Woodard PA 07/27/2018 B35.1 Tinea unguium Laney Woodard PA 07/27/2018 N18.3 Chronic kidney disease, stage 3 (moderate) Laney Woodard PA 07/27/2018 I10 Essential (primary) hypertension Laney Woodard PA 07/22/2018 J18.9 Pneumonia, unspecified organism Josue Quinonez D.O. 07/22/2018 R53.83 Other fatigue Josue Quinonez D.O. 07/22/2018 E03.9 Hypothyroidism, unspecified Josue Quinonez D.O. 07/22/2018 N18.3 Chronic kidney disease, stage 3 (moderate) Josue Quinonez D.O. 07/04/2018 F41.9 Anxiety disorder, unspecified Deena [place], P.A. 07/04/2018 I10 Essential (primary) hypertension Deena [place], P.A. 07/04/2018 I73.9 Peripheral vascular disease, unspecified Deena [place], P.A. 07/04/2018 R60.0 Localized edema Deena [place], P.A. 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 06/20/2018 I10 Essential (primary) hypertension Deena [place], P.A. 06/20/2018 F41.9 Anxiety disorder, unspecified Deena [place], P.A. 06/20/2018 G47.9 Sleep disorder, unspecified Deena [place], P.A. 06/04/2018 I10 Essential (primary) hypertension Deena [place], P.A. 06/04/2018 F41.9 Anxiety disorder, unspecified Deena [place], P.A. 06/04/2018 R73.09 Other abnormal glucose Deenaakshat Ortiz, P.A. 06/04/2018 D64.9 Anemia, unspecified Deena [place], P.A. 06/04/2018 R68.83 Chills (without fever) Deena Ortiz, P.A. Plan of Treatment Future Appointment(s):01/20/2019 8:55 am - Rubin Sanchez M.D. at [facility]9011/17/2018 - Roseann BenitezD25.9 Leiomyoma of uterus, unspecifiedNew Xrays:Transvaginal Sonogram, Ordered: 11/17/18Pelvic Sonogram, Ordered: Follow up:we will contact you when the ultrasound is arranged. You have likely had this a long timeI10 Essential (primary) hypertensionComments:pt advised to report to the ED for severely elevated BP BP did go do to 190 /74 when pt was lying down but returned to 210/100 with sitting.R68.83 Chills ( without fever)M25.552 Pain in left hipM54.5 Low back pain Functional Status Description No Information Available Mental Status Description No Information Available Referrals Refer to Reason for Referral Status Appt Date Eugenio Lazaro MD Facs Longstanding low back pain w/ limited ability Sent to be on her feet b/o pain. She has failed trials w/ conservative therapy as well as surgery a couple of years ago. She would like your opinion as to whether or not another procedure might help w/ pain relief Consultation [facility] [address] [place] [address] [phone]
--- OUTSIDE RECORDS SUMMARY | 2018-12-30 08:52 | XMS REPORT | Continuity of Care Document ---
:1935 External Reference #:[id number] Author Name Jerry Kat DO [facility] (transmitted by agent of provider Sofya Melendrez) Address [address] [place] [address] Care Team Providers Name Role Phone Rubin Sanchez MD - Internal Care Team Information Transportation Specialist Medicine Problems Active Problems Provider Date Polymyalgia [...] Use Denies Drug Use Smoking Status Reviewed: 12/21/18 Patient is a former quit at age 63 smoker Exercise Type/Frequency Exercises sporadically Allergies, Adverse Reactions, Alerts Active Allergies Reaction Severity Comments Date lisinopril 03/18/2005 Hydrocodone 03/18/2005 Niaspan 06/29/2005 Betablockers extreme fatigue 01/19/2006 Pravastatin 08/06/2017 Azithromycin 08/06/2017 Medications Active Medications SIG Qnty Indications Ordering Provider Date Amoxicillin take 4 pills, 2 g 4caps Cyndi Garza, 12/24/2017 500mg 1 hour before M.DKevin Capsules dental or gi procedure Levothroid 1 po qd Qutaybeh S. 01/19/2006 100mcg Yin Howe Tablets Losartan Potassium 1tab po qd 90tabs Unknown 100mg Tablets Cartia XT 1 by mouth every 90caps Unknown 240mg Caps day ER 24HR Tums as needed Unknown 500mg Chewtabs Clonazepam 1 by mouth twice a Unknown 0.5mg day as needed Tablets Omeprazole 1 by mouth every Unknown 20mg day Capsules DR Tylenol prn Unknown Buspirone HCL take 1 tablet by Unknown 10mg mouth three times Tablets a day as needed Medications Administered in Office Medication SIG Qnty Indications Ordering Provider Date Depomedrol 40MG Cyndi Garza M.D. 11/25/2018 Injection Immunizations Description No Information Available Vital Signs Date Vital Result Comment 12/21/2018 7:59am Height 64 inches 5'4" Weight 175.00 lb Heart Rate 68 /min BP Systolic Sitting 160 mmHg lue reg cuff BP Diastolic Sitting 90 mmHg lue reg cuff BP Systolic Standing 160 mmHg lue reg cuff BP Diastolic Standing 90 mmHg lue reg cuff Respiratory Rate 14 /min BMI (Body Mass Index) 30.0 kg/m2 Ejection Fraction 55-60% echo, 11/20/08 12/14/2018 10:54am Height 64 inches 5'4" Weight 175.00 lb Heart Rate 64 /min BP Systolic 138 mmHg BP Diastolic 80 mmHg Respiratory Rate 18 /min Body Temperature 97.8 F Pain Level 7 BMI (Body Mass Index) 30.0 kg/m2 Results Test Date Facility Test Result H/L Range Note Xray 11/25/2018 [facility] Inj/Aspir Major JT Or Bursa W/ <pending> US Procedures Date Code Description Status 12/21/2018 10247 EKG Tracing & Interpretation Completed 11/25/2018 [id number] Inj/Aspir Major JT Or Bursa W/ US Completed 08/02/2018 48850 Endoscopy Upper GI Biopsy Completed 01/13/2011 [id number] Colonoscopy Completed 11/17/2005 [id number] Colonoscopy Completed 02/23/2000 [id number] Colonoscopy Completed Medical Devices Description No Information Available Encounters Type Date Location Provider Dx Diagnosis Office Visit 11/25/2018 [facility] Cyndi Garza, M25.552 Pain in left hip 10:45a [facility] M16.12 Unilateral primary osteoarthritis, left hip Z96.651 Presence of right artificial knee joint [facility] 8:45a Asschase cabello M.D.,[facility] Hospitalists E87.1 Hypo-osmolality and hyponatremia N18.3 Chronic kidney disease, stage 3 (moderate) R63.4 Abnormal weight loss [facility] Epigastric pain 8:45a chase Lowe M.D.,[facility] Hospitalists E87.1 Hypo-osmolality and hyponatremia K27.9 Peptic ulc, site unsp, unsp as ac or chr, w/o hemor or perf Office Visit 07/31/2018 8:45a [facility] Brooke Dill, N17.9 Acute kidney Assoc,chase CHIU failure, Hospitalists unspecified R10.13 Epigastric pain N18.3 Chronic kidney disease, stage 3 (moderate) E87.1 Hypo-osmolality and hyponatremia Office Visit 07/12/2018 11:10a [facility] Epi Richard, L82.1 Other seborrheic Montrell CHIU keratosis D48.5 Neoplasm of uncertain behavior of skin B35.4 Tinea corporis B35.1 Tinea unguium Z85.828 Personal history of other malignant neoplasm of skin Z08 Encntr for follow-up exam after trtmt for malignant neoplasm Z85.820 Personal history of malignant melanoma of skin Assessments Date Code Description Provider 12/21/2018 Z01.810 Encounter for preprocedural Jerry Kat, DO [facility] cardiovascular examination 12/14/2018 M25.552 Pain in left hip Cyndi [...] MD 08/02/2018 R10.13 Epigastric pain Ronald Yanez M.D.,FACP 08/02/2018 R63.4 Abnormal weight loss Lopez Smart MD 08/02/2018 E87.1 Hypo-osmolality and hyponatremia Ronald Yanez M.D., FACP 08/02/2018 R10.13 Epigastric pain Lopez Smart MD 08/02/2018 N18.3 Chronic kidney disease, stage 3 Ronald Yanez M.D., FACP (moderate) 08/02/2018 R63.4 Abnormal weight loss Ronald Ynaez M.D.,FACP 08/01/2018 R10.13 Epigastric pain Ronald Yanez M.D.,FACP 08/01/2018 E87.1 Hypo-osmolality and hyponatremia Ronald Yanez M.D., FACP 08/01/2018 K27.9 Peptic ulc, site unsp, unsp as ac or Ronald Yanez M.D.,FAC chr, w/o hemor or perf 07/31/2018 N17.9 Acute kidney failure, unspecified Brooke Dill, MD 07/31/2018 R10.13 Epigastric pain Brooke Murphy [...] melanoma of skin Plan of Treatment Future Appointment(s):12/30/2018 1:30 pm - Pavan Garcia PA-C at [facility]12/30/2018 1:30 pm - Cyndi Garza M.D. at [facility]12/26/2018 1:30 pm - Cyndi Garza M.D. at [facility]04/17/2019 9:00 am - Epi Richard MD at [facility] Irlnsvnjwqq63/18 /2019 - Jerry Kat DO FACCZ01.810 Encounter for preprocedural cardiovascular examinationFollow up:PRN Functional Status Description No Information Available Mental Status Description No Information Available Referrals Description No Information Available
--- OUTSIDE RECORDS SUMMARY | 2018-12-30 08:52 | XMS REPORT | Continuity of Care Document ---
:1935 External Reference #:[id number] Author Name Cyndi Garza M.D. (transmitted by agent of provider Ann Landis) Address [address] [place] [address] [place] [address] Care Team Providers Name Role Phone Rubin Sanchez MD - Internal Care Team Information Traffic Checker [phone] Medicine Problems Active Problems Provider Date Polymyalgia [...] Use Denies Drug Use Smoking Status Reviewed: 12/26/18 Patient is a former quit at age 63 smoker Exercise Type/Frequency Exercises sporadically Allergies, Adverse Reactions, Alerts Active Allergies Reaction Severity Comments Date lisinopril 03/18/2005 Hydrocodone 03/18/2005 Niaspan 06/29/2005 Betablockers extreme fatigue 01/19/2006 Pravastatin 08/06/2017 Azithromycin 08/06/2017 Medications Active Medications SIG Qnty Indications Ordering Provider Date Amoxicillin take 4 pills, 2 g 4caps Cyndi Garza, 12/24/2017 500mg 1 hour before M.DKvein Capsules dental or gi procedure Levothroid 1 [...] Available Vital Signs Date Vital Result Comment 12/26/2018 1:00pm Height 64 inches 5'4" Weight 175.00 lb Heart Rate 66 /min BP Systolic 148 mmHg BP Diastolic 76 mmHg Body Temperature 97.9 F Pain Level 5 BMI (Body Mass Index) 30.0 kg/m2 12/21/2018 7:59am Height 64 inches 5'4" Weight 175.00 lb Heart Rate 68 /min BP Systolic Sitting 160 mmHg lue reg cuff BP Diastolic Sitting 90 mmHg lue reg cuff BP Systolic Standing 160 mmHg lue reg cuff BP Diastolic Standing 90 mmHg lue reg cuff Respiratory Rate 14 /min BMI (Body Mass Index) 30.0 kg/m2 Ejection Fraction 55-60% echo, 11/20/08 Results Test Date Facility Test Result H/L Range Note Xray 11/25/2018 [facility] House Inj/Aspir Major JT Or Bursa W/ <pending> US Procedures Date Code Description Status 12/21/2018 63096 EKG Tracing & Interpretation Completed 11/25/2018 27225 Inj/Aspir Major JT Or Bursa W/ US Completed 08/02/2018 27406 Endoscopy Upper GI Biopsy Completed 01/13/2011 [id number] Colonoscopy Completed 11/17/2005 [id number] Colonoscopy Completed 02/23/2000 [id number] Colonoscopy Completed Medical Devices Description No Information Available Encounters Type Date Location Provider Dx Diagnosis Office Visit 12/21/2018 [facility] Jerry Gutierrez Z01.810 Encounter for 8:15a Of Eric Kat DO [facility] preprocedural cardiovascular examination M16.12 Unilateral primary osteoarthritis, left hip I12.9 Hypertensive chronic kidney disease w stg 1-4/unsp chr kdny N18.3 Chronic kidney disease, stage 3 (moderate) Office Visit 11/25/2018 10:45a [facility] Cyndi Garza, M25.552 Pain in left [facility] M.D. hip M16.12 Unilateral primary osteoarthritis, left hip Z96.651 Presence of right artificial knee joint Office Visit 08/02/2018 [facility] Ronald Philip R10.13 Epigastric pain 8:45a Assocchase M.D.,[facility] Hospitalists E87.1 Hypo-osmolality and hyponatremia N18.3 Chronic kidney disease, stage 3 (moderate) R63.4 Abnormal weight loss Office Visit 08/01/2018 [facility] Ronald Philip R10.13 Epigastric pain 8:45a chase Lowe M.D.,[facility] Hospitalists E87.1 Hypo-osmolality and hyponatremia K27.9 Peptic ulc, site unsp, unsp as ac or chr, w/o hemor or perf Office Visit 07/31/2018 8:45a [facility] Brooke Dill, N17.9 Acute kidney Assoc,chase MD failure, Hospitalists unspecified R10.13 Epigastric pain N18.3 Chronic kidney disease, stage 3 (moderate) E87.1 Hypo-osmolality and hyponatremia Office Visit 07/12/2018 11:10a [facility] Dermatology AT Epi Richard, L82.1 Other seborrheic Montrell CHIU keratosis D48.5 Neoplasm of uncertain behavior of skin B35.4 Tinea corporis B35.1 Tinea unguium Z85.828 Personal history of other malignant neoplasm of skin Z08 Encntr for follow-up exam after trtmt for malignant neoplasm Z85.820 Personal history of malignant melanoma of skin Assessments Date Code Description Provider 12/26/2018 M25.552 Pain in left hip Cyndi Garza M.D. 12/26/2018 M16.12 Unilateral primary osteoarthritisCyndi M.D. left hip 12/21/2018 Z01.810 Encounter for preprocedural Jerry Kat DO [facility] cardiovascular examination 12/21/2018 M16.12 Unilateral primary osteoarthritis, Jerry Kat DO [facility] left hip 12/21/2018 I12.9 Hypertensive chronic kidney disease Jerry Kat DO [facility] with stage 1 through stage 4 chronic kidney disease, or unspecified chronic kidney disease 12/21/2018 N18.3 Chronic kidney disease, stage [address] [facility] (moderate) 12/14/2018 M25.552 Pain in left hip Cyndi Garza M.D. 12/14/2018 M16.12 Unilateral primary osteoarthritisCyndi M.D. left hip 11/25/2018 M25.552 Pain in left hip Cyndi Garza M.D. 11/25/2018 M16.12 Unilateral primary osteoarthritisCyndi M.D. left hip 11/25/2018 Z96.651 Presence of [...] 08/02/2018 R63.4 Abnormal weight loss Ronald Yanez M.D.,FACP 08/01/2018 R10.13 Epigastric pain Ronald Yanez M.D.,FACP 08/01/2018 E87.1 Hypo-osmolality and hyponatremia Ronald Yanez M.D., FACP 08/01/2018 K27.9 Peptic ulc, site unsp, unsp as ac or Ronald Yanez M.D.,[facility] chr, w/o hemor or perf 07/31/2018 N17.9 [...] melanoma of skin Plan of Treatment Future Appointment(s):01/09/2019 10:00 am - [facility]/2018 1:30 pm - Pavan Garcia PA-C at [facility]12/30/2018 1:30 pm - Cyndi Garza M.D. at [facility]04/17/2019 9:00 am - Epi Richard MD at [facility]12/26 - Cyndi Garza M.D.M25.552 Pain in left hipFollow up:Follow up: 10-14 days afjdpfT56.12 Unilateral primary osteoarthritis, left hip Functional Status Description No Information Available Mental Status Description No Information Available Referrals Description No Information Available
--- OUTSIDE RECORDS SUMMARY | 2018-12-30 08:52 | XMS REPORT | Continuity of Care Document ---
:1935 External Reference #:[id number] Author Name Cyndi Garza M.D. (transmitted by agent of provider Shannan Navarrete) Address [address] [place] [address] [place] [address] Care Team Providers Name Role Phone Rubin Sanchez MD - Internal Care Team Information Forest Officer Medicine Problems Active Problems Provider Date Polymyalgia [...] Use Denies Drug Use Smoking Status Reviewed: 11/25/18 Patient is a former quit at age 63 smoker Exercise Type/Frequency Exercises sporadically Allergies, Adverse Reactions, Alerts Active Allergies Reaction Severity Comments Date lisinopril 03/18/2005 Hydrocodone 03/18/2005 Niaspan 06/29/2005 Betablockers extreme fatigue 01/19/2006 Pravastatin 08/06/2017 Azithromycin 08/06/2017 Medications Active Medications SIG Qnty Indications Ordering Date Provider Amoxicillin take 4 pills, 2 4caps Cyndi Garza, 12/24/2017 500mg Capsules g 1 hour before M.DKevin dental or gi procedure Levothroid 1 po qd Qutaybeh S. 01/19/2006 100mcg Tablets Yin Hoew Losartan Potassium 1 po bid 90tabs Unknown 50mg Tablets Diltiazem CD 1 po qd 90caps Unknown 180mg Caps ER 24HR Tums as needed Unknown 500mg [...] Tylenol Unknown Betamethasone Valerate Unknown 0.1% Ointment Immunizations Description No Information Available Vital Signs Date Vital Result Comment 11/25/2018 11:10am Height 64 inches 5'4" Weight 175.00 lb BP Systolic 140 mmHg BP Diastolic 80 mmHg Respiratory Rate 15 /min Body Temperature 97.3 F Pain Level 10 BMI (Body Mass Index) 30.0 kg/m2 12/08/2017 9:37am Height 64 inches 5'4" Weight 171.00 lb BP Systolic 130 mmHg BP Diastolic 70 mmHg Body Temperature 97.3 F Pain Level 0 BMI (Body Mass Index) 29.3 kg/m2 Results Test Date Facility Test Result H/L Range Note Xray 11/25/2018 [facility] In House Inj/Aspir Major JT Or Bursa W/ <pending> US Procedures Date Code Description Status 11/25/2018 40815 Inj/Aspir Major JT Or Bursa W/ US Completed 08/02/2018 39064 Endoscopy Upper GI Biopsy Completed 01/13/2011 [id number] Colonoscopy Completed 11/17/2005 [id number] Colonoscopy Completed 02/23/2000 [id number] Colonoscopy Completed Medical Devices Description No Information Available Encounters Type Date Location Provider Dx Diagnosis Office Visit 08/02/2018 [facility] Ronald Philip R10.13 Epigastric pain 8:45a Asschase cabello M.D.,[facility] Hospitalists E87.1 Hypo-osmolality and hyponatremia N18.3 Chronic kidney disease, stage 3 (moderate) R63.4 Abnormal weight loss Office Visit 08/01/2018 [facility] Ronald Philip R10.13 Epigastric pain 8:45a Asschase cabello M.D.,[facility] Hospitalists E87.1 Hypo-osmolality and hyponatremia K27.9 Peptic ulc, site unsp, unsp as ac or chr, w/o hemor or perf Office Visit 07/31/2018 8:45a [facility] Brooke Dill, N17.9 Acute kidney Assoc,chase MD failure, Hospitalists unspecified R10.13 Epigastric pain N18.3 Chronic kidney disease, stage 3 (moderate) E87.1 Hypo-osmolality and hyponatremia Office Visit 07/12/2018 11:10a [facility] AT Epi Richard, L82.1 Other seborrheic Montrell CHIU keratosis D48.5 Neoplasm of uncertain behavior of skin B35.4 Tinea corporis B35.1 Tinea unguium Z85.828 Personal history of other malignant neoplasm of skin Z08 Encntr for follow-up exam after trtmt for malignant neoplasm Z85.820 Personal history of malignant melanoma of skin Assessments Date Code Description Provider 11/25/2018 M25.552 Pain in left hip Cyndi [...] 9:00 am - Epi Richard MD at [facility] Bjjvyobogwf38/23/2019 - Cyndi Garza M.D.M25.552 Pain in left hipNew Xrays:Hip Left 2 Views And Pelvis 65988 - [id number], Ordered: 11/25/18Follow up:Follow up: 2 tcsjeU05.12 Unilateral primary osteoarthritis, left hipZ96.651 Presence of right artificial knee joint Functional Status Description No Information Available Mental Status Description No Information Available Referrals Description No Information Available
[2018-12-30] MEDS ORDERED: Buffered Lidocaine 1% SYRIN* 1 ML/SYRINGE INTRADERM ONE (09:22)
[2018-12-30] MEDS ORDERED: ceFAZolin 2 GM in NS PREMIX(*) 2 GM/100 ML BAG IVPB ONE (09:22)
[2018-12-30] MEDS ORDERED: Famotidine IV* 10 MG/ML 2 ML (20 mg) ONE (09:22)
[2018-12-30] MEDS ORDERED: Lidocaine 2% PF * 5 ML VIAL ONE (09:49)
[2018-12-30] MEDS ORDERED: Dexamethasone IV* 4 MG/ML 1 ML (4 MG) ONE (09:49)
[2018-12-30] MEDS ORDERED: Midazolam* 1 MG/ML 10 ML VIAL (10 MG) ONE (09:49)
[2018-12-30] MEDS ORDERED: Ondansetron INJ* 2 MG/ML VIAL ONE (09:49)
[2018-12-30] MEDS ORDERED: Propofol* 10 MG/ML 20 ML BTL ONE (09:49)
[2018-12-30] MEDS ORDERED: fentaNYL* 50 MCG/ML 2 ML VIAL (100 MCG VIAL) ONE ×4 (09:49→13:30)
[2018-12-30] MEDS ORDERED: KETAMINE HCL* 50 MG/ML 10 ML VIAL ONE (09:50)
[2018-12-30] MEDS ORDERED: Ropivacaine 0.2% * 2 MG/ML VIAL ONE (10:29)
[2018-12-30] MEDS ORDERED: ROPIVACAINE 5 MG/ML 30 ML BTL (0.5%) ONE (10:55)
[2018-12-30] MEDS ORDERED: Cisatracurium* 2 MG/ML MDV 5 ML ONE (11:18)
[2018-12-30] MEDS ORDERED: EPHEDrine (Pressors)* 50 MG/ML VIAL ONE (11:39)
[2018-12-30] MEDS ORDERED: Phenylephrine 10 MG/ML VIAL* 1 ML VIAL ONE (11:40)
[2018-12-30] MEDS ORDERED: Naloxone* 0.4 MG/ML 1 ML VIAL IV PRN (12:30)
[2018-12-30] MEDS ORDERED: Ondansetron INJ* 2 MG/ML VIAL IV PRN ×2 (12:30→13:20)
[2018-12-30] MEDS ORDERED: Ondansetron ODT TAB* 4 MG PO PRN (13:20)
[2018-12-30] MEDS ORDERED: oxyCODONE/Acetamin 5/325 MG* TAB PO PRN ×2 (13:20)
[2018-12-30] MEDS ORDERED: Polyethylene Glycol 3350* 17 GM PACKET PO PRN (13:20)
[2018-12-30] MEDS ORDERED: diPHENhydraMINE PO* 25 MG PO PRN (13:20)
[2018-12-30] MEDS ORDERED: oxyCODONE TAB* 5 MG TAB PO PRN (13:20)
[2018-12-30] MEDS ORDERED: traMADol TAB* 50 MG PO PRN (13:20)
[2018-12-30] MEDS ORDERED: Magnesium Hydroxide LIQ* 30 ML UDC PO PRN (13:20)
[2018-12-30] MEDS ORDERED: Morphine INJ* 2 MG/ML 1 ML SYRINGE (TWO MG - NEW SYRINGE VERSION) IV PRN (13:20)
[2018-12-30] MEDS ORDERED: diPHENhydraMINE IV* 50 MG/ML 1 ml VIAL (BENADRYL) IV PRN (13:20)
[2018-12-30] MEDS ORDERED: Temazepam CAP* 15 MG PO PRN (13:20)
[2018-12-30] MEDS ORDERED: Cyclobenzaprine TAB* 10 MG PO PRN (13:20)
--- NOTE | 2018-12-30 13:20 | OP ---
Operative Report - Blank - Operative Report Date of Operation: 12/30/18 Note: LATONIA SAGASTUME 1935 Date Of Surgery: 12/30/18 Cyndi Garza MD Philosophy And Religion Instructor: Araseli DURAND did help throughout the procedure with preparation of the hip, wound retraction, manipulation of the hip, and wound closure. Anesthesiologist: Cande Daily MD Anesthesia Type: General Preoperative Diagnosis: Left severe degenerative osteoarthritis of the hip Postoperative Diagnosis: As above Procedure Performed: Left Total Hip Arthroplasty Complications: None Specimen: Femoral head and acetabular reamings sent to pathology. Hardware used: This is uncemented Gonzalez total hip arthroplasty hardware for the femur a size 7 accolade II with 127 neck angle femoral component, for the acetabulum a size 50D trident II tritanium cluster hole shell, two screws- length 15mm and 20mm, for the insert a size 36D trident X 3 polyethylene insert , and for the femoral head a size 36 - 5 ceramic biolox V40 femoral head. Brief history/Indication: LATONIA SAGASTUME was known in clinic and had a history of severe left hip pain. She failed conservative treatment with anti- inflammatories, pain pills, intra-articular injections and physical therapy. She elected to undergo left total hip arthroplasty due to continued pain and decreased quality of life. Radiographs showed severe end stage osteoarthritis of the hip with bone on bone contact. Informed consent was obtained from the patient. She understood the risks of surgery included but were not limited to: bleeding, infection, damage to nearby structures, intraoperative fracture, nerve palsy, failure of the hardware, early loosening, stiffness or loss of motion, dislocation, leg length discrepancy, anesthesia complications, stroke, heart attack, blood clot and . She wished to proceed. Intra-Operative findings: Intraoperatively the patient was noted to have severe loss of cartilage of the acetabulum and femoral head. Description of the Procedure: LATONIA SAGASTUME was identified in the preanesthesia unit. Her left hip was marked as the correct operative side. Informed consent was signed and placed in the chart. The patient was taken to the operating room and placed under anesthesia without complication. A ornelas catheter was placed. The patient was placed on the peg board with all bony prominences well padded. The left lower extremity was prepped and draped in the usual sterile fashion. Preoperative time -out was made to correctly identify the patient, side and site. Appropriate intraoperative antibiotics were given within one hour of incision. A standard posterior incision was made and carried sharply down to the lateral fascia. A new 10 blade was used to make an incision in the fascia in line with the skin incision. A charnley retractor was placed. The piriformis and conjoined tendons were identified and elevated off the posterolateral femur using electrocautery. These were tagged with number 5 Ethibond. Next electrocautery was used to make a posterolateral capsular flap and this was tagged with number 5 Ethibonds. The hip was carefully dislocated. Lesser trochanter to the center of the femoral head was measured at 55 mm. The oscillating saw was used to make the femoral neck cut. The femoral head was carefully removed. The femur was retracted anteriorly and the acetabular retractors were placed. Long-handled knife was used to sharply remove any remaining labrum from the acetabular rim. The acetabulum was sequentially reamed up to a size 50. A bleeding subchondral bone bed was obtained. A trial liner was placed and had excellent fit and stability. A 50D cup with two screws was placed and had excellent stability with appropriate anteversion and abduction angle. A size 36D polyethylene liner was impacted into the acetabular shell. The liner was checked for stability and was stable. Next attention was turned to preparation of the femoral canal. A canal finder was used to enter the proximal femur. The femoral canal was sequentially broached up to a size 7 femoral broach trial. A trial neck and 36 - 5 trial femoral head was chosen. Lesser trochanter to center of the femoral head measurement was satisfactory. The hip was reduced and taken through a range of motion. The hip was stable in all positions with good soft tissue tension and appropriate leg lengths. The hip was dislocated and all trials were removed. The final implant chosen was a accolade II size 7 with 127 neck angle. This stem was impacted into the femoral canal without difficulty. The stem was stable with appropriate anteversion. The femoral head chosen was a 36 - 5 ceramic head. The head was impacted onto the femoral neck without difficulty. The final lesser trochanter to center of the femoral head measurement was satisfactory. The hip was reduced and taken through a range of motion. The hip was stable in all positions with good soft tissue tension and appropriate leg lengths. The hip was copiously irrigated with sterile saline. The previously tagged capsule and tendons were repaired to the posterolateral femur through two trochanteric drill holes. The lateral fascia layer was closed using number 1 vicryls. The rest of the incision was closed in a layered fashion using 0 and 2-0 vicryls. The skin was closed using 3-0 monocryl suture and Dermabond. Sterile adaptic, 4x4s and paper tape was used to cover the incision. The patients anesthesia was reversed without difficulty. She was taken to the PACU in stable condition. Intended weight-bearing will be as tolerated with posterior hip precautions.
[2018-12-30] MEDS ORDERED: clonazePAM TAB(*) 0.5 MG PO PRN (13:28)
[2018-12-30] MEDS ORDERED: busPIRone TAB* 5 MG PO PRN (13:28)
[2018-12-30] MEDS: fentaNYL* 50 MCG/ML 2 ML VIAL (100 MCG VIAL) IV PRN ×2 (13:31→13:54)
[2018-12-30] MEDS ORDERED: Acetaminophen TAB* 325 MG PO SCH (14:00)
[2018-12-30] MEDS ORDERED: ceFAZolin 1 GM ADVAN(*) 1 GM in NS 0.9% 50 ML* 50 ML IVPB SCH (14:00)
[2018-12-30] MEDS ORDERED: Lactated Ringers 1000 ML Bag* 1,000 ML IV SCH (14:00)
[2018-12-30] MEDS ORDERED: Acetaminophen IV 1GM/100ML * 1,000 MG/100 ML VIAL IVPB ONE (14:08)
[2018-12-30] MEDS ORDERED: Acetaminophen IV 1GM/100ML * 100 ML ONE (14:09)
--- NOTE | 2018-12-30 15:33 | CONS ---
CONSULTATION REPORT: DATE OF CONSULT: 12/30/18 REASON FOR CONSULT: General co-medical management. REQUESTING PROVIDER: Dr. Garza. HISTORY OF PRESENT ILLNESS: This is an 83-year-old female with a past medical history that is significant for osteoarthritis, chronic kidney disease, hypertension, and anxiety who was admitted today status post a left total hip replacement. Hospital Medicine was consulted for general co-medical management. The patient seen in the PACU. She was able to move all toes. Denied having any left hip pain, though reported 5/10 low back pain. The patient kept her eyes closed during examination, denied any nausea or vomiting. Appeared to be resting comfortably. PAST MEDICAL HISTORY: Includes osteoarthritis, chronic kidney disease with resulting anemia, hypothyroidism, hypertension, lumbosacral spondylosis without myelopathy, agammaglobulinemia, spinal stenosis, polymyalgia rheumatica, melanoma, GERD, and anxiety. PAST SURGICAL HISTORY: Right knee arthroscopy, right total knee replacement, total thyroidectomy, cholecystectomy, spinal surgery-unspecified, and 3 cardiac caths in 1998, 2005, and 2010. MEDICATIONS: 1. Levothyroxine 100 mcg p.o. daily. 2. Acetaminophen 500 to 1000 mg p.o. q.6 hours p.r.n. 3. Omeprazole 20 mg p.o. q.a.m. 4. Losartan 100 mg p.o. q.a.m. 5. Diltiazem 240 mg p.o. q.a.m. 6. Clonazepam 0.5 mg p.o. once p.r.n. 7. Buspirone 10 mg p.o. t.i.d. p.r.n. 8. Zolpidem 5 to 10 mg p.o. at bedtime p.r.n. 9. Prochlorperazine 25 mg p.o. q.8 hours p.r.n. 10. Melatonin/pyridoxine 1 to 2 tablets p.o. at bedtime p.r.n. 11. Calcium carbonate 500 to 1000 mg p.o. t.i.d. p.r.n. ALLERGIES: To LISINOPRIL, HYDROCODONE, NIASPAN, BETA-BLOCKERS, AZITHROMYCIN, PRAVASTATIN, SPIRONOLACTONE, STATINS, TRAMADOL, CLAVULANIC ACID, DOXAZOSIN, and CLONIDINE. FAMILY HISTORY: Noncontributory. SOCIAL HISTORY: The patient lives with her . She does not work. Denies any tobacco, alcohol, or recreational drug use. REVIEW OF SYSTEMS: Review of systems was limited due to drowsiness of the patient, though denied any chest pain, shortness of breath, nausea, vomiting, abdominal pain. Positive for lumbar pain. PERTINENT DIAGNOSTIC STUDIES AND LABS: No labs done this admission. Postoperative left hip and pelvic x-ray showed prosthesis to be in proper position. IMPRESSION: My impression is that this is an 83-year-old female with a past medical history significant for osteoarthritis, chronic kidney disease, hypertension, and anxiety, who was [place] [facility] [place] left total hip replacement. Hospitalists will provide co-medical management. PLAN OF CARE: 1. Left total hip replacement. Pain and bowel management per Ortho. PT and OT consulted. Saline lock IV fluids. When tolerating p.o., may have regular diet. Follow hip precautions. 2. Hypothyroid. Continue levothyroxine. 3. GERD. Continue omeprazole. 4. Hypertension. Continue diltiazem and lisinopril. 5. Anxiety. Continue buspirone and clonazepam as needed. 6. Code status is full code. 7. DVT prophylaxis. SCDs and apixaban per Ortho. DISPOSITION: Inpatient admit. CONDITION: Stable. Thank you for allowing us to participate in the care of this patient. We will follow during this admission. [id number]/[facility] #: [id number] HALLIE
[2018-12-30] MEDS ORDERED: HYDROmorphone INJ1* 1 MG/ML SYRINGE ONE (16:32)
[2018-12-30] MEDS: ceFAZolin 1 GM ADVAN(*) 1 GM in NS 0.9% 50 ML* 50 ML IVPB SCH (19:24)
[2018-12-30] MEDS: Acetaminophen TAB* 325 MG PO SCH (21:37)
[2018-12-30] MEDS: Docusate CAP* 100 MG PO SCH (21:37)
[2018-12-30] MEDS: Magnesium Hydroxide LIQ* 30 ML UDC PO SCH (21:38)
[2018-12-31] MEDS: ceFAZolin 1 GM ADVAN(*) 1 GM in NS 0.9% 50 ML* 50 ML IVPB SCH ×2 (03:44→11:17)
[2018-12-31] MEDS ORDERED: Levothyroxine TAB* 100 MCG TAB PO SCH (06:00)
[2018-12-31] MEDS: Acetaminophen TAB* 325 MG PO SCH ×2 (06:24→13:48)
[2018-12-31 06:50] LABS: Hematocrit 30 % (35-47); Mean Platelet Volume 6.6 fL (7.4-10.4); Platelet Count 216 10^3/uL (150-450)
[2018-12-31 07:06] LABS: BUN/Creatinine Ratio 15.8 (8-20); Calcium 8.8 mg/dL (8.6-10.3); EGFR African American 51.8 (>60); EGFR Non-African American 42.8 (>60); Potassium 4.5 mmol/L (3.5-5.0)
--- NOTE | 2018-12-31 08:13 | PN ---
Progress Note - Progress Note Date of Service: 12/31/18 SOAP: Subjective: POD #1 Left ED. Doing well, pain minimal. Denies CP/SOB, f/c, n/v. Objective: Vital Signs: Temp Pulse Resp BP Pulse Ox 98.1 F 63 18 120/57 96 12/31/18 03:36 12/31/18 03:36 12/31/18 06:27 12/31/18 03:36 12/31/18 03:36 Gen: A&Ox3, NAD at rest sitting in bed Left hip: Dressing C/D/I. Thigh and calf soft, NT. +f/e at ankle and MTPs. N/V intact Laboratory Results - last 24 hr 12/31/18 12/31/18 06:28 06:28 Hgb 10.0 L Hct 30 L Plt Count 216 MPV 6.6 L Sodium 138 Potassium 4.5 Chloride 104 Carbon Dioxide 27 Anion Gap 7 BUN 19 Creatinine 1.20 H Est GFR ( Amer) 51.8 Est GFR (Non-Af Amer) 42.8 BUN/Creatinine Ratio 15.8 Glucose 144 H Calcium 8.8 Assessment: POD #1 Left ED Plan: PT to work with pt today Eliquis for DVT ppx Continue pain medication as needed Possible d/c later today if doing well with PT
[2018-12-31] MEDS ORDERED: Vitamin THERAPEUTIC TAB PO SCH (09:00)
[2018-12-31] MEDS ORDERED: Pantoprazole TAB * 40 MG TAB PO SCH (09:00)
[2018-12-31] MEDS ORDERED: Losartan TAB* 25 MG PO SCH (09:00)
[2018-12-31] MEDS ORDERED: Diltiazem CD CAP* 240 MG PO SCH (09:00)
[2018-12-31] MEDS ORDERED: Apixaban* 2.5 MG TAB PO SCH (09:00)
[2018-12-31] MEDS: Docusate CAP* 100 MG PO SCH (09:12)
--- NOTE | 2018-12-31 09:36 | PN ---
Subjective Date of Service: 12/31/18 Interval History: Patient seen sitting up in chair, conversing with family. States she feels well , denies pain in left hip while at rest. Pain while ambulating is manageable. Awaiting first session of physical therapy. Plans to go home rather than short term rehab. Denies headaches, chest pain, shortness of breath, abdominal pain, nausea or vomiting. Family History: Unchanged from Admission Social History: Unchanged from Admission Past Medical History: Unchanged from Admission Objective Active Medications: Acetaminophen (Tylenol Tab*) 975 mg PO 0600,1400,2200 [facility] Last Admin: 12/31/18 06:24 Dose: 975 mg Apixaban (Eliquis*) 2.5 mg PO BID [facility] Last Admin: 12/31/18 09:12 Dose: 2.5 mg Bisacodyl (Dulcolax Supp*) 10 mg NV DAILY PRN PRN Reason: CONSTIPATION Buspirone HCl (Buspar Tab*) 10 mg PO TID PRN PRN Reason: ANXIETY Clonazepam (Klonopin Tab(*)) 0.5 mg PO ONCE PRN PRN Reason: ANXIETY Cyclobenzaprine HCl (Flexeril Tab*) 10 mg PO Q6H PRN PRN Reason: SPASMS Last Admin: 12/30/18 21:38 Dose: 10 mg Diltiazem HCl (Cardizem Cd Cap*) 240 mg PO QAM [facility] Last Admin: 12/31/18 09:12 Dose: 240 mg Diphenhydramine HCl (Benadryl Iv*) 25 mg IV Q6H PRN PRN Reason: PRURITIS Diphenhydramine HCl (Benadryl Po*) 25 mg PO Q6H PRN PRN Reason: PRURITIS Docusate Sodium (Colace Cap*) 100 mg PO BID [facility] Last Admin: 12/31/18 09:12 Dose: 100 mg Lactated Ringer's (Lactated Ringers 1000 Ml Bag*) 1,000 mls @ 100 mls/hr IV PER RATE [facility] Last Admin: 12/31/18 01:09 Dose: 100 mls/hr Cefazolin Sodium 1 gm/ Sodium (Chloride) 50 mls @ 200 mls/hr IVPB 0330,1130, 1930 [facility] Stop: 12/31/18 11:44 Last Admin: 12/31/18 03:44 Dose: 200 mls/hr Lactulose (Lactulose*) 30 ml PO BID PRN PRN Reason: CONSTIPATION Levothyroxine Sodium (Synthroid Tab*) 100 mcg PO DAILY@0600 [facility] Last Admin: 12/31/18 05:29 Dose: 100 mcg Losartan Potassium ([facility]zaar Tab*) [facility] Last Admin: 12/31/18 09:12 Dose: 100 mg Magnesium Hydroxide (Milk Of Magnesia Liq*) 30 ml PO BID [facility] Last Admin: 12/30/18 21:38 Dose: 30 ml Magnesium Hydroxide (Milk Of Magnesia Liq*) 30 ml PO Q6H PRN PRN Reason: CONSTIPATION Morphine Sulfate (Morphine Inj (Syringe))*) 2 mg IV Q4H PRN PRN Reason: Pain - Unrelieved Multivitamins (Theragran Tab*) 1 tab PO DAILY [facility] Last Admin: 12/31/18 09:12 Dose: 1 tab Ondansetron HCl (Zofran Inj*) 4 mg IV Q6H PRN PRN Reason: NAUSEA Ondansetron HCl (Zofran Odt Tab*) 4 mg PO Q6H PRN PRN Reason: NAUSEA Oxycodone HCl (Roxycodone Tab*) 10 mg PO Q4H PRN PRN Reason: Pain - Breakthrough Oxycodone/Acetaminophen (Percocet 5/325 Tab*) 1 tab PO Q4H PRN PRN Reason: PAIN - MODERATE Oxycodone/Acetaminophen (Percocet 5/325 Tab*) 2 tab PO Q4H PRN PRN Reason: PAIN - SEVERE Pantoprazole Sodium (Protonix Tab*) 40 mg PO [facility] Last Admin: 12/31/18 09:12 Dose: 40 mg Polyethylene Glycol/Electrolytes (Miralax*) 17 gm PO DAILY PRN PRN Reason: Constipation Temazepam (Restoril Cap*) 15 mg PO BEDTIME PRN PRN Reason: INSOMNIA Tramadol HCl (Ultram*) 50 mg PO Q6H PRN PRN Reason: PAIN - MODERATE Last Admin: 12/31/18 06:24 Dose: 50 mg Vital Signs - 8 hr 12/31/18 12/31/18 12/31/18 03:36 06:24 06:27 Temperature 98.1 F Pulse Rate 63 Respiratory 16 18 18 Rate Blood Pressure 120/57 (mmHg) O2 Sat by Pulse 96 Oximetry 12/31/18 08:51 Temperature 99.0 F Pulse Rate 74 Respiratory 16 Rate Blood Pressure 158/61 (mmHg) O2 Sat by Pulse 97 Oximetry Oxygen Devices in Use Now: None Appearance: Well groom, well developed female sitting up in chair, no acute distress noted. Eyes: No Scleral Icterus, PERRLA Ears/Nose/Mouth/Throat: NL Teeth, Lips, Gums, Clear Oropharnyx, Mucous Membranes Moist Neck: NL Appearance and Movements; NL JVP, Trachea Midline Respiratory: Symmetrical Chest Expansion and Respiratory Effort, Clear to Auscultation Cardiovascular: NL Sounds; No Murmurs; No JVD, RRR, - - Trace edema to right hip. Abdominal: NL Sounds; No Tenderness; No Distention, No Hepatosplenomegaly Lymphatic: No Cervical Adenopathy Extremities: No Clubbing, Cyanosis Skin: No Rash or Ulcers, No Nodules or Sclerosis Neurological: Alert and Oriented x 3, NL Sensation, NL Gait Lines/Tubes/Other Access: Clean, Dry and Intact Peripheral IV Result Diagrams: 12/31/18 06:28 12/31/18 06:28 Assess/Plan/Problems-Billing Assessment: This is an 83 year old female with a past medical history significant for anxiety, osteoathritis and hypertension who was admitted on 12/30/18 S/P left total hip replacement by Dr. Garza. - Patient Problems (1) Status post total hip replacement, left Status: Acute Priority: High Onset Date: 12/30/18 Code(s): Z96.642 - PRESENCE OF LEFT ARTIFICIAL HIP JOINT SNOMED Code(s): 315815551838 Comment: Pain, bowel and incisional management per ortho. Saline lock IV fluids. Continue PT/OT. HH slightly low this AM, asymptomatic. (2) Hypertension Status: Chronic Priority: Medium Code(s): I10 - ESSENTIAL (PRIMARY) HYPERTENSION SNOMED Code(s): 68685535 Comment: Continue diltiazem and lisinopril. (3) Hypothyroid Status: Chronic Code(s): E03.9 - HYPOTHYROIDISM, UNSPECIFIED SNOMED Code(s) : 91231781 Comment: Continue levothyroxine (4) GERD (gastroesophageal reflux disease) Status: Chronic Code(s): K21.9 - GASTRO-ESOPHAGEAL REFLUX DISEASE WITHOUT ESOPHAGITIS SNOMED Code(s): 165412779 Comment: Continue omeprazole (5) Anxiety Status: Chronic Code(s): F41.9 - ANXIETY DISORDER, UNSPECIFIED SNOMED Code(s ): 46708957 Comment: Continue buspirone and clonazepam. (6) Full code status Status: Acute Code(s): Z78.9 - OTHER SPECIFIED HEALTH STATUS SNOMED Code(s) : 582867185 (7) DVT prophylaxis Status: Acute Priority: Low Code(s): CGN8905 - SNOMED Code(s): 560577287 Comment: SCD's and apixaban Status and Disposition: Inpatient, condition is stable. Counseling and/or Coordination of Care Minutes: Time spent on patient 30 minutes. Attending: Hector San
[2018-12-31] MEDS: Magnesium Hydroxide LIQ* 30 ML UDC PO SCH (09:46)
[2018-12-31 11:30] VITALS: BP 144/54
--- NOTE | 2018-12-31 13:34 | DS ---
Orthopedic Discharge Summary - Discharge Summary Date of Admission:12/30/18 Date of Discharge: 12/31/18 Date of Surgery: 12/30/18 Attending Orthopedic Provider: Cyndi Garza MD Pre-operative Diagnosis: Left hip arthritis Operative Procedure: Left total hip arthroplasty Disposition of Patient: Home Condition of Patient: Stable History: LATONIA SAGASTUME is a 83 year old F with years of increasingly severe left hip pain. Patient has failed conservative management and has elected to undergo a left total hip replacement Hospital Course: LATONIA was admitted to [facility] on 12/30/18. Patient underwent a left total hip arthroplasty without complication followed by a brief recovery in PACU and transfer to the Short Stay Surgical Unit in stable condition. Our hospitalist service, physical therapy and occupational therapy also participated in this patients care. Post-op day 1: Patient was alert and in no acute distress. Dressing was changed, incision was clean, dry and intact.. Operative extremity dorsiflexion and plantarflexion intact, sensation intact to light touch distally, DP2+. Patient was deemed to be medically and orthopedically stable for discharge. Physical therapy goals were met. Home Medications Medication Instructions Recorded Confirmed Type clonazePAM [Clonazepam] 0.5 mg PO ONCE PRN 11/07/15 12/30/18 History dilTIAZem HCl [Cartia Xt] 240 mg PO QAM 09/01/17 12/30/18 History busPIRone TAB* [Buspar TAB*] 10 mg PO TID PRN 07/31/18 12/30/18 History Levothyroxine TAB* [Synthroid 100 100 mcg PO DAILY@0600 2 Days #30 08/02/18 Rx MCG TAB*] tab Losartan TAB* [Cozaar TAB*] 100 mg PO QAM 11/17/18 12/30/18 History Acetaminophen [Acetaminophen Extra 500 - 1,000 mg PO Q6H PRN 12/26/18 12/30/18 History Strength] Calcium Carbonate [Tums] 500 - 1,000 mg PO TID PRN 12/26/18 12/26/18 History Melatonin/Pyridoxine HCl (B6) 1 - 2 each PO BEDTIME PRN 12/26/18 12/26/18 History [Melatonin 3 mg Tablet] Omeprazole CAP (NF) [Prilosec CAP* 20 mg PO QAM 12/26/18 12/30/18 History 20 MG] Prochlorperazine 25 mg PO Q8H PRN 12/26/18 12/26/18 History Zolpidem TAB* [Ambien*] 5 - 10 mg PO BEDTIME PRN MDD 1 12/26/18 12/30/18 History Apixaban* [Eliquis*] 2.5 mg PO BID tab 12/31/18 Rx Docusate CAP* [Colace Cap*] 100 mg PO BID cap 12/31/18 Rx traMADol TAB* [Ultram*] 50 mg PO Q6H PRN tab 12/31/18 Rx Discharge Instructions following Orthopedic Surgery: Activity: * Weight Bearing as tolerated * Continue physical therapy and occupational therapy exercises as shown Wound care: * OK to shower on post-op day 3, no bathing, swimming, or submerging wound. * Use gentle soap, pat dry. Cover with gauze, MOSHE wrap or tape. * Visiting home nurse to do wound checks. Call Orthopedic office for: * Increased drainage * Redness * Increased pain * Fever Go to ER with shortness of breath or chest pain. Diet: * Regular diet * Increase fluids and fiber to prevent constipation. * Continue to use stool softeners, call office if no bowel motion within 48 hours. Hip replacements: Continue Hip Precautions- do not cross legs or bend greater than 90 degrees/ squat Medications See Home Medication List in your packet for medications that you should take after discharge. DVT Prophylaxis: Eliquis Dosin.5 mg, 1 tab every 12 hours x 30 days Pain Control: Tramadol 50 mg every 4-6 hours as needed Antibiotics are required prior to any dental work. FOLLOW UP: Follow up with Dr. Garza Within 10-14 days, call for appointment Please call our office with any questions or concerns ([phone])
[2019-01-01] MEDS ORDERED: Bisacodyl SUPP* 10 MG SUPP PR PRN (13:20)
== END 2018-12-31 15:00 | disposition home health service (06) | DRG 470 ==
LOC: AA 08:48 → SSU 15:19
PROVIDERS: ADMIT Orthopaedic Surgery Adult Reconstructive Orthopaedic Surgery; ATTEND Orthopaedic Surgery Adult Reconstructive Orthopaedic Surgery
PROC: 0SRB04A Replacement of Left Hip Joint with Ceramic on Polyethylene Synthetic Substitute, Uncemented, Open Approach (ICD-10-PCS; principal; 2018-12-30 11:00)
DX: M16.12 Unilateral primary osteoarthritis, left hip (principal); D80.1 Nonfamilial hypogammaglobulinemia; I12.9 Hypertensive chronic kidney disease with stage 1 through stage 4 chronic kidney disease, or unspecified chronic kidney disease; D63.1 Anemia in chronic kidney disease; N18.3 Chronic kidney disease, stage 3 (moderate); E03.9 Hypothyroidism, unspecified; M43.07 Spondylolysis, lumbosacral region; M48.061 Spinal stenosis, lumbar region without neurogenic claudication; M35.3 Polymyalgia rheumatica; K21.9 Gastro-esophageal reflux disease without esophagitis; F41.9 Anxiety disorder, unspecified; Z96.651 Presence of right artificial knee joint; Z79.1 Long term (current) use of non-steroidal anti-inflammatories (NSAID); Z79.899 Other long term (current) drug therapy; Z88.8 Allergy status to other drugs, medicaments and biological substances; Z87.891 Personal history of nicotine dependence; Z85.820 Personal history of malignant melanoma of skin
CPT/HCPCS: 36415; 80048; 85014; 85018; 85049; 88304; 88311; A9270-GY; C1713; C1776; G8978-GP-CJ; G8979-GP-CI; J0690; J1100; J1170; J2250; J2405; J2704; J2795; J3010

== ENCOUNTER 2022-11-03 09:43 | Inpatient (IN) ==
[2022-11-03] MEDS: Buffered Lidocaine 1% SYRIN 1 ml INTRADERM ONE ×2 (09:41→11:11)
[~2022-11-03 09:43] MED LIST changes: -Buffered Lidocaine 1% SYRIN* 1 ML/SYRINGE INTRADERM ONE; -Famotidine IV* 10 MG/ML 2 ML (20 mg) IV ONE; -Lactated Ringers 1000 ML Bag* 1,000 ML IV SCH; +Lactated Ringers 1000 ml BAG 1,000 ML IV SCH; +ROPIVACAINE 5 MG/ML 30 ML BTL (0.5%) ONE; -Tranexamic Acid 1,000 MG in NS 0.9% 50 ML* (outpatient use) IV SCH
[2022-11-03] MEDS ORDERED: ceFAZolin 2 GM in NS PREMIX 2 GM/100 ML BAG IVPB ONE (09:51)
[2022-11-03 10:24] LABS: Rapid COVID-19 Molecular Undetected (Undetected)
[2022-11-03] MEDS ORDERED: Midazolam 2 mg/2 ml VIAL 1 mg/ml 2 ml VIAL (2 mg) ONE (10:51)
[2022-11-03] MEDS ORDERED: Phenylephrine 40 mcg/mL 10mL (400mcg) SYRINGE ONE (10:52)
[2022-11-03] MEDS ORDERED: Lidocaine 2% PF 5 ML VIAL ONE (10:52)
[2022-11-03] MEDS ORDERED: fentaNYL 100 mcg/2 ml 50 MCG/ML VIAL ONE ×3 (10:52→15:28)
[2022-11-03] MEDS ORDERED: Ondansetron 4 mg VIAL 2 MG/ML 2 ml VIAL ONE (10:54)
[2022-11-03] MEDS ORDERED: Buffered Lidocaine 1% SYRIN 1 ml ONE (11:05)
[2022-11-03] MEDS ORDERED: Rocuronium 50 mg VIAL 10 mg/ml 5 ml VIAL (50 mg) ONE ×2 (12:27→13:40)
[2022-11-03] MEDS ORDERED: Morphine 4 MG/ML VIAL (1 ml) IV PRN (13:55)
[2022-11-03] MEDS ORDERED: Naloxone 0.4 mg VIAL 0.4 mg/ml 1 ml VIAL IV PRN (13:55)
[2022-11-03] MEDS ORDERED: Ondansetron 4 mg VIAL 2 MG/ML 2 ml VIAL IV PRN ×2 (13:55→15:15)
[2022-11-03] MEDS ORDERED: Acetaminophen IV 1 GM/100ML 1,000 MG/100 ML BAG IV ONE (14:34)
[2022-11-03] MEDS ORDERED: Lactulose 30 ml UDC PO PRN (15:15)
[2022-11-03] MEDS ORDERED: Magnesium Hydroxide LIQ 30 ML UDC PO PRN (15:15)
[2022-11-03] MEDS ORDERED: Ondansetron ODT 4 mg TAB 4 MG TAB PO PRN (15:15)
[2022-11-03] MEDS ORDERED: Morphine 2 MG/ML SYRINGE IV PRN (15:15)
[2022-11-03] MEDS: fentaNYL 100 mcg/2 ml 50 MCG/ML VIAL IV PRN ×4 (15:29→16:20)
[2022-11-03] MEDS: Lactated Ringers 1000 ml BAG 1,000 ML IV SCH (17:16)
[2022-11-03] MEDS: Magnesium Hydroxide LIQ 30 ML UDC PO SCH (22:48)
[2022-11-03] MEDS: ceFAZolin 1 GM ADVAN 1 GM in NS 0.9% 50 ML 50 ML IVPB SCH (22:56)
[2022-11-04] MEDS: Lactated Ringers 1000 ml BAG 1,000 ML IV SCH (02:51)
[2022-11-04] MEDS: ceFAZolin 1 GM ADVAN 1 GM in NS 0.9% 50 ML 50 ML IVPB SCH ×2 (05:36→12:48)
[2022-11-04 07:27] LABS: Hematocrit 25.4 % (35-45); Hemoglobin 8.2 g/dL (11.5-14.3); Platelet Count 224 10^3/uL (150-450)
[2022-11-04 07:39] LABS: Calcium 8.2 mg/dL (8.6-10.3); Creatinine, Serum 1.48 mg/dL (0.51-0.95); Potassium 4.4 mmol/L (3.5-5.0); eGFR CKD-EPI 33.9 (>60)
[2022-11-04] MEDS: Vitamin THERAPEUTIC TAB PO SCH (09:13)
[2022-11-04] MEDS: Magnesium Hydroxide LIQ 30 ML UDC PO SCH ×2 (09:14→20:39)
[2022-11-04] MEDS ORDERED: Lactated Ringers 1000 ml BAG 500 ML IV ONE (12:29)
[2022-11-05 06:13] LABS: Hematocrit 20.9 % (35-45); Hemoglobin 6.9 g/dL (11.5-14.3); Mean Platelet Volume 7.1 fL (7.5-11.2); Platelet Count 187 10^3/uL (150-450)
[2022-11-05] MEDS: Vitamin THERAPEUTIC TAB PO SCH (11:48)
[2022-11-05] MEDS: Magnesium Hydroxide LIQ 30 ML UDC PO SCH (11:48)
[2022-11-05 11:59] LABS: Albumin 3.2 g/dL (3.2-5.2); Calcium 8.2 mg/dL (8.6-10.3); Total Bilirubin 0.5 mg/dL (0.2-1.0)
[2022-11-05 12:05] LABS: Albumin/Globulin Ratio 1.6 (1-3); Creatinine, Serum 1.49 mg/dL (0.51-0.95); Total Protein 5.2 g/dL (6.4-8.9); eGFR CKD-EPI 33.6 (>60)
[2022-11-05 15:19] LABS: Hematocrit 25.6 % (35-45); Hemoglobin 8.4 g/dL (11.5-14.3)
[2022-11-06 06:35] LABS: Hematocrit 24.5 % (35-45); Hemoglobin 8.2 g/dL (11.5-14.3); Mean Platelet Volume 6.8 fL (7.5-11.2); Platelet Count 204 10^3/uL (150-450)
[2022-11-06] MEDS: Vitamin THERAPEUTIC TAB PO SCH (10:37)
[2022-11-06 11:37] VITALS: BP 136/71
== END 2022-11-06 14:00 | disposition home or self-care (01) | DRG 470 ==
LOC: AA 09:43 → INTOOBSV 09:43 → SSU 17:01
PROVIDERS: ADMIT Orthopaedic Surgery Adult Reconstructive Orthopaedic Surgery; ATTEND Orthopaedic Surgery Adult Reconstructive Orthopaedic Surgery

== ENCOUNTER 2023-09-22 16:29 | Inpatient (IN) ==
[2023-09-22 17:09] LABS: ABS Basophils 0.1 10^3/uL (0.0-0.1); ABS Eosinophils 0.4 10^3/uL (0.0-0.5); ABS Monocytes 1.5 10^3/uL (0.0-0.9); ABS Neutrophils 8.2 10^3/uL (1.5-7.6); ABS Nucleated RBC 0.01 10^3/ul; Eosinophil % 3.2 %; Hematocrit 31.3 % (35-45); Hemoglobin 10.5 g/dL (11.5-14.3); Lymphocyte % 16.6 %; Mean Corpuscular Hemoglobin 29.4 pg (27-33); Mean Corpuscular Hgb Conc 33.6 g/dL (31-36); Mean Corpuscular Volume 87.5 fL (80-97); Mean Platelet Volume 5.8 fL (7.5-11.2); Nucleated Red Blood Cells % 0.1 %/100WBC (0.0-0.8); Platelet Count 292 10^3/uL (150-450); Red Blood Count 3.58 10^6/uL (3.63-4.92); Red Cell Distribution Width 14.9 % (12-17); White Blood Count 12.2 10^3/uL (3.8-11.8)
[2023-09-22] MEDS: Albuterol/Ipratropium NEB.SOL (2.5/0.5 MG) 3 ML NEB.SOLN INH ONE (17:16)
[2023-09-22 17:31] LABS: High Sens Troponin Baseline 7 pg/mL (<15)
[2023-09-22] MEDS: Dexamethasone IV 4 MG/ML VIAL 1 ml VIAL IV SLOW PU ONE (17:40)
[2023-09-22 17:55] LABS: ALT 21 U/L (7-52); Albumin 3.8 g/dL (3.2-5.2); Albumin/Globulin Ratio 1.7 (1-3); Alkaline Phosphatase 80 U/L (35-149); Anion Gap 7 mmol/L (2-16); Blood Urea Nitrogen 19 mg/dL (6-24); CO2 Carbon Dioxide 27 mmol/L (22-32); Calcium 8.9 mg/dL (8.6-10.3); Chloride 86 mmol/L (101-111); Creatinine, Serum 0.75 mg/dL (0.51-0.95); Globulin 2.3 g/dL (2-4); Glucose 97 mg/dL (70-100); Sodium 120 mmol/L (135-145); Total Bilirubin 0.9 mg/dL (0.2-1.0); Total Protein 6.1 g/dL (6.4-8.9); eGFR CKD-EPI 76.1 (>60)
[2023-09-22 18:19] LABS: High Sensitivity Troponin 1 Hr 6 pg/mL (<15)
[2023-09-22] MEDS: Iohexol 350 (CONTRAST) 500 ML MDV IV ONE (18:22)
[2023-09-22 19:28] LABS: Potassium, Whole Blood 4.3 mmol/L (3.4-4.5)
[2023-09-22] MEDS: NS 0.9% 500 ml BAG 500 ML IV ONE (20:22)
[2023-09-22] MEDS: Albuterol/Ipratropium NEB.SOL (2.5/0.5 MG) 3 ML NEB.SOLN INH SCH (22:21)
[2023-09-22] MEDS ORDERED: Albuterol/Ipratropium NEB.SOL (2.5/0.5 MG) 3 ML NEB.SOLN INH PRN (22:44)
[2023-09-22 22:55] LABS: C Reactive Protein 65.39 mg/L (<8.01)
[2023-09-22 23:52] LABS: Transferrin 216 mg/dL (203-362)
[2023-09-23 00:08] LABS: TSH Ultra Thyroid Stim Horm 1.13 mcIU/mL (0.34-5.60)
[2023-09-23 00:14] LABS: Ferritin 135.1 ng/mL (11-307)
[2023-09-23 00:37] LABS: Osmolality Serum 254 mOsm/kg (275-295)
[2023-09-23 01:14] LABS: AST Redraw 30 U/L (13-39); Iron 24 ug/dL (50-212)
[2023-09-23 01:53] LABS: Osmolality Serum 263 mOsm/kg (275-295)
[2023-09-23] MEDS: Albuterol/Ipratropium NEB.SOL (2.5/0.5 MG) 3 ML NEB.SOLN INH SCH (01:54)
[2023-09-23] MEDS: Furosemide 40 mg/4 ml IV VIAL IV SCH (01:54)
[2023-09-23] MEDS: cefTRIAXone 1 gm/50 mL D5W 1 GM/50 ML BAG IV SCH (01:54)
[2023-09-23 05:24] LABS: Urine Osmo 325 mOsm/kg (150-1150)
[2023-09-23] MEDS: Enoxaparin 40 MG/0.4 ML SYR SUBCUT SCH (06:18)
[2023-09-23] MEDS: Dexamethasone IV 4 MG/ML VIAL 1 ml VIAL IV SLOW PU ONE (06:18)
[2023-09-23 06:49] LABS: ABS Basophils 0.1 10^3/uL (0.0-0.1); ABS Lymphocytes 1.1 10^3/uL (1.0-4.8); ABS Monocytes 0.5 10^3/uL (0.0-0.9); Hematocrit 28.8 % (35-45); Hemoglobin 10.1 g/dL (11.5-14.3); Lymphocyte % 10.2 %; Mean Corpuscular Hemoglobin 30.2 pg (27-33); Mean Corpuscular Hgb Conc 34.9 g/dL (31-36); Mean Corpuscular Volume 86.3 fL (80-97); Mean Platelet Volume 5.9 fL (7.5-11.2); Platelet Count 276 10^3/uL (150-450); Red Blood Count 3.34 10^6/uL (3.63-4.92); Red Cell Distribution Width 15.3 % (12-17); White Blood Count 10.6 10^3/uL (3.8-11.8)
[2023-09-23 07:49] LABS: ALT 20 U/L (7-52); Albumin 3.5 g/dL (3.2-5.2); Albumin/Globulin Ratio 1.5 (1-3); Alkaline Phosphatase 78 U/L (35-149); Amylase 45 U/L (29-103); Anion Gap 12 mmol/L (2-16); Blood Urea Nitrogen 14 mg/dL (6-24); CO2 Carbon Dioxide 26 mmol/L (22-32); Calcium 8.4 mg/dL (8.6-10.3); Chloride 87 mmol/L (101-111); Creatinine, Serum 0.74 mg/dL (0.51-0.95); Globulin 2.3 g/dL (2-4); Glucose 154 mg/dL (70-100); Lipase 38 U/L (11.0-82.0); Magnesium 1.3 mg/dL (1.9-2.7); Sodium 125 mmol/L (135-145); Total Bilirubin 0.6 mg/dL (0.2-1.0); Total Protein 5.8 g/dL (6.4-8.9); eGFR CKD-EPI 77.3 (>60)
[2023-09-23] MEDS ORDERED: Lidocaine PATCH 4% TOPICAL SCH (09:00)
[2023-09-23 09:31] LABS: Albumin 3.7 g/dL (3.2-5.2); Albumin/Globulin Ratio 1.4 (1-3); Creatinine, Serum 0.75 mg/dL (0.51-0.95); Globulin 2.7 g/dL (2-4); Total Bilirubin 0.6 mg/dL (0.2-1.0); Total Protein 6.4 g/dL (6.4-8.9); eGFR CKD-EPI 76.1 (>60)
[2023-09-23] MEDS: Magnesium Sulf 4 GM/100 ML IV 4,000 MG/100 ML BAG IVPB ONE (11:13)
[2023-09-23] MEDS: Lidocaine PATCH 5% PATCH TRANSDERM SCH (11:16)
[2023-09-23] MEDS: Senna TAB 8.6 mg TAB PO SCH (11:17)
[2023-09-23] MEDS: Iohexol 300 (CONTRAST) 10 ML SDV IV ONE (12:31)
[2023-09-23] MEDS: Azithromycin 500 mg/250 ml NS 500 MG/250 ML BAG IVPB SCH (15:19)
[2023-09-23 18:13] LABS: Calcium 8.5 mg/dL (8.6-10.3); Creatinine, Serum 0.77 mg/dL (0.51-0.95); Magnesium 2.8 mg/dL (1.9-2.7); Phosphorus 3.7 mg/dL (2.5-5.0); Potassium 3.6 mmol/L (3.5-5.0); eGFR CKD-EPI 73.7 (>60)
[2023-09-23] MEDS: NS 0.9% 500 ml BAG 500 ML IV ONE (18:27)
[2023-09-23] MEDS: Magnesium Hydroxide LIQ 30 ML UDC PO ONE (18:29)
[2023-09-23 23:14] LABS: Calcium 8.4 mg/dL (8.6-10.3); Creatinine, Serum 0.8 mg/dL (0.51-0.95); Magnesium 2.5 mg/dL (1.9-2.7); Phosphorus 3.2 mg/dL (2.5-5.0); Potassium 3.6 mmol/L (3.5-5.0); eGFR CKD-EPI 70.4 (>60)
[2023-09-24] MEDS: cefTRIAXone 1 gm/50 mL D5W 1 GM/50 ML BAG IV SCH (01:51)
[2023-09-24 05:18] LABS: Hematocrit 27.3 % (35-45); Hemoglobin 9.1 g/dL (11.5-14.3); Mean Corpuscular Hemoglobin 28.6 pg (27-33); Mean Corpuscular Hgb Conc 33.4 g/dL (31-36); Mean Corpuscular Volume 85.7 fL (80-97); Mean Platelet Volume 5.8 fL (7.5-11.2); Platelet Count 295 10^3/uL (150-450); Red Blood Count 3.18 10^6/uL (3.63-4.92); Red Cell Distribution Width 14.8 % (12-17); White Blood Count 13.4 10^3/uL (3.8-11.8)
[2023-09-24 05:53] LABS: Calcium 8.2 mg/dL (8.6-10.3); Creatinine, Serum 0.8 mg/dL (0.51-0.95); Magnesium 2.3 mg/dL (1.9-2.7); eGFR CKD-EPI 70.4 (>60)
[2023-09-24] MEDS ORDERED: NS 0.9% 1000 ml BAG 1,000 ML IV SCH (07:00)
[2023-09-24] MEDS: Albuterol/Ipratropium NEB.SOL (2.5/0.5 MG) 3 ML NEB.SOLN INH SCH (19:11)
[2023-09-24 19:19] LABS: Calcium 8.4 mg/dL (8.6-10.3); Creatinine, Serum 0.88 mg/dL (0.51-0.95); Potassium 4.3 mmol/L (3.5-5.0); eGFR CKD-EPI 62.8 (>60)
[2023-09-25 07:14] LABS: Hematocrit 27.3 % (35-45); Hemoglobin 9.5 g/dL (11.5-14.3); Mean Corpuscular Hgb Conc 34.8 g/dL (31-36); Mean Corpuscular Volume 86.2 fL (80-97); Mean Platelet Volume 6.2 fL (7.5-11.2); Platelet Count 282 10^3/uL (150-450); Red Blood Count 3.16 10^6/uL (3.63-4.92); Red Cell Distribution Width 15.1 % (12-17); White Blood Count 13.4 10^3/uL (3.8-11.8)
[2023-09-25 07:36] LABS: Albumin 3.3 g/dL (3.2-5.2); Albumin/Globulin Ratio 1.5 (1-3); Calcium 8.4 mg/dL (8.6-10.3); Creatinine, Serum 0.81 mg/dL (0.51-0.95); Globulin 2.2 g/dL (2-4); Magnesium 1.9 mg/dL (1.9-2.7); Potassium 4.2 mmol/L (3.5-5.0); Total Bilirubin 0.5 mg/dL (0.2-1.0); Total Protein 5.5 g/dL (6.4-8.9); eGFR CKD-EPI 69.3 (>60)
[2023-09-25] MEDS: Sulfur Hexaflouride MICROSPHR 25 MG VIAL IV ONE (08:06)
[2023-09-25] MEDS: Albuterol/Ipratropium NEB.SOL (2.5/0.5 MG) 3 ML NEB.SOLN INH SCH ×2 (12:36→23:17)
[2023-09-26] MEDS: Haloperidol 5 mg/ml SDV IV/IM 5 MG/ML AMP IV SLOW PU ONE (05:37)
[2023-09-26 08:55] LABS: Hematocrit 32.1 % (35-45); Hemoglobin 10.9 g/dL (11.5-14.3); Mean Corpuscular Hemoglobin 29.5 pg (27-33); Mean Corpuscular Volume 86.7 fL (80-97); Mean Platelet Volume 5.7 fL (7.5-11.2); Platelet Count 322 10^3/uL (150-450); Red Cell Distribution Width 14.8 % (12-17); White Blood Count 15.6 10^3/uL (3.8-11.8)
[2023-09-26 09:40] LABS: Creatinine, Serum 0.86 mg/dL (0.51-0.95); Magnesium 1.7 mg/dL (1.9-2.7); Phosphorus 2.6 mg/dL (2.5-5.0); Potassium 3.7 mmol/L (3.5-5.0); eGFR CKD-EPI 64.5 (>60)
[2023-09-26] MEDS: Magnesium Sulf 4 GM/100 ML IV 4,000 MG/100 ML BAG IVPB ONE (14:23)
[2023-09-27] MEDS: Albuterol/Ipratropium NEB.SOL (2.5/0.5 MG) 3 ML NEB.SOLN INH PRN (00:02)
[2023-09-27] MEDS: Morphine 2 MG/ML SYRINGE IV ONE (01:14)
[2023-09-27 03:17] LABS: High Sensitivity Troponin 1 Hr 11 pg/mL (<15)
[2023-09-27 06:37] LABS: Calcium 8.7 mg/dL (8.6-10.3); Creatinine, Serum 0.82 mg/dL (0.51-0.95); Magnesium 2.3 mg/dL (1.9-2.7); Potassium 3.7 mmol/L (3.5-5.0); eGFR CKD-EPI 68.3 (>60)
[2023-09-27] MEDS: Lactated Ringers 1000 ml BAG 1,000 ML IV SCH (12:41)
[2023-09-27 16:57] LABS: Calcium 8.6 mg/dL (8.6-10.3); Creatinine, Serum 0.69 mg/dL (0.51-0.95); Potassium 3.6 mmol/L (3.5-5.0); eGFR CKD-EPI 82.9 (>60)
[2023-09-27 20:19] LABS: TSH Ultra Thyroid Stim Horm 4.35 mcIU/mL (0.34-5.60)
[2023-09-28] MEDS: Polyethylene Glycol 3350 17 GM PACKET PO SCH (01:44)
[2023-09-28] MEDS: Magnesium Hydroxide LIQ 30 ML UDC ONE (01:53)
[2023-09-28 06:19] LABS: Calcium 8.8 mg/dL (8.6-10.3); Creatinine, Serum 0.74 mg/dL (0.51-0.95); Potassium 3.4 mmol/L (3.5-5.0); eGFR CKD-EPI 77.3 (>60)
[2023-09-28] MEDS: Lactated Ringers 1000 ml BAG 1,000 ML IV ONE (09:48)
[2023-09-28] MEDS: Potassium EFFERVES 25 meq TAB PO ONE (10:17)
[2023-09-28] MEDS: Magnesium Hydroxide LIQ 30 ML UDC PO SCH (10:21)
[2023-09-28 10:51] LABS: Calcium 8.6 mg/dL (8.6-10.3); Creatinine, Serum 0.77 mg/dL (0.51-0.95); Potassium 3.6 mmol/L (3.5-5.0); eGFR CKD-EPI 73.7 (>60)
[2023-09-28 16:07] LABS: Calcium 8.8 mg/dL (8.6-10.3); Creatinine, Serum 0.84 mg/dL (0.51-0.95); Potassium 4.3 mmol/L (3.5-5.0); eGFR CKD-EPI 66.4 (>60)
[2023-09-29] MEDS: NS 0.9% 1000 ml BAG 1,000 ML IV SCH (01:53)
[2023-09-29] MEDS: Famotidine IV 10 MG/ML 2 ml VIAL (20 mg) IV SLOW PU ONE (03:32)
[2023-09-29 06:13] LABS: Calcium 8.6 mg/dL (8.6-10.3); Creatinine, Serum 0.82 mg/dL (0.51-0.95); Potassium 4.3 mmol/L (3.5-5.0); eGFR CKD-EPI 68.3 (>60)
[2023-09-29 06:18] LABS: Rapid COVID-19 Molecular Undetected (Undetected)
[2023-09-29] MEDS: Nystatin TOP POWDER 15 GM BTL TOPICAL SCH (11:55)
[2023-09-30 05:42] VITALS: BP 148/74
[2023-09-30 06:04] LABS: Hematocrit 33.9 % (35-45); Hemoglobin 11.2 g/dL (11.5-14.3); Mean Corpuscular Hemoglobin 28.7 pg (27-33); Mean Platelet Volume 6.2 fL (7.5-11.2); Platelet Count 365 10^3/uL (150-450); Red Blood Count 3.89 10^6/uL (3.63-4.92); Red Cell Distribution Width 15.3 % (12-17); White Blood Count 15.9 10^3/uL (3.8-11.8)
[2023-09-30 06:18] LABS: Calcium 8.9 mg/dL (8.6-10.3); Creatinine, Serum 0.76 mg/dL (0.51-0.95); Potassium 4.2 mmol/L (3.5-5.0); eGFR CKD-EPI 74.9 (>60)
[2023-09-30 07:45] LABS: ABS Eosinophils 0.5 10^3/uL (0.0-0.5); ABS Lymphocytes 3.5 10^3/uL (1.0-4.8); ABS Monocytes 1.3 10^3/uL (0.0-0.9); ABS Neutrophils 10.5 10^3/uL (1.5-7.6); ABS Nucleated RBC 0.01 10^3/ul; Eosinophil % 3.3 %; Lymphocyte % 22.2 %
== END 2023-09-30 10:15 | DRG 190 ==
LOC: ED 16:29 → EDHOLD 23:00 → SUATTDRO 23:00 → MED 09-23 08:15
PROVIDERS: ADMIT Internal Medicine; ATTEND Internal Medicine